=== PATIENT | female | born 1980 | race Caucasian/White ===

== ENCOUNTER 2018-03-09 01:12 | Outpatient (CLI) | payer OTHER, SELFPAY ==
--- NOTE | 2018-03-09 15:25 | DI.REPORT_ITS ---
SYMPTOM/DIAGNOSIS: Z34.80, DATING, OB ULTRASOUND: 03/09 OB ultrasound was performed utilizing first trimester protocol. biometry is consistent with gestational age of 14 weeks 4 days and an EDC of 09/03/18. The placenta is posterior with no evidence of placenta previa. There is a normal quantity of amniotic fluid. cardiac activity observed at a rate of 155 BPM. Many abnormalities cannot be diagnosed. A normal exam does not exclude a congenital anomaly. Radiology No. [id number] LMP: 12/01/17 Exam Date:03/09/18 [facility] wks days on EDC ([facility]) Confirmed: HISTORY: DATING U/S. ---- PREDICTED GESTATIONAL AGE NUMBER 14 - weeks with a range of 13- week to 15- weeks. 1 Determined by___1STUS_XX__LMP___HISTORY Info. pertaining to fetus # PLACENTA PRESENTATION Grade 0 Cephalic__X_ Anterior___Posterior__XX_ Breech____ Right Left Transverse(head right___ Fundal___Low-lying___Previa___ Transverse(head left___ Varying BIOMETRY AMNIOTIC FLUID BPD: 28 mm 15- weeks Normal HC: 109 mm 15 +2 weeks AC: 77 mm 14 +1 weeks FL: 13 mm 13 +5 weeks AMNIOTIC FLUID INDEX >26 WK CRL: mm weeks Cisterna Magna: mm CI: 83 RUQ: LUQ Cerebellum: cm EFW: grams Percentile RLQ: LLQ Total: cms Composite AGE= 14 +4 wks EDC by US___09/03/18 BIOPHYSICAL PROFILE ANATOMY IDENTIFIED SCORE 0/2 Heart: 4-Chamber___Rate:BPM__155 BPM___ LVOT: RVOT: Amniotic Fluid(>2cms)____ Stomach: Kidneys: Respirations (>30 secs) Bladder: Post. Fossa: Body Flex/Extension 3 vessel cord: Ventricles: cord insertion: Lips:____ Extremity Flex/Extension spinal morphology: Nose: Total Score= Palate: NS=not seen
== END 2018-03-09 01:13 ==
PROVIDERS: PCP Nurse Practitioner; Visit Provider Midwife
DX: Z34.81 Encounter for supervision of other normal pregnancy, first trimester (principal)
CPT/HCPCS: 76801

== ENCOUNTER 2018-04-27 00:21 | Outpatient (CLI) | payer OTHER, SELFPAY ==
--- NOTE | 2018-04-27 16:34 | DI.US_ITS ---
SYMPTOMS/DIAGNOSIS: , Z34.82 OB ULTRASOUND: Many abnormalities cannot be diagnosed. A normal exam does not exclude a congenital anomaly. Radiology No. [id number] LMP: Exam Date: 04/27/18 [facility] wks days on EDC ([facility]) 09/07/18 Confirmed: HISTORY: ---- PREDICTED GESTATIONAL AGE NUMBER 21+4 weeks with a range of 20+4 weeks to 22+4 weeks. 1 Determined by___1STUS___LMP___HISTORY PLACENTA PRESENTATION Grade Cephalic___ Anterior___Posterior_X__ Breech____ Right__X___ Left Transverse(head right___ Fundal___Low-lying___Previa___ Transverse(head left___ Varying__X____ BIOMETRY AMNIOTIC FLUID BPD: 49 mm 20+5 weeks Normal HC: 188 mm 21 weeks AC: 165 mm 21+4 weeks FL: 35 mm 21+1 weeks AMNIOTIC FLUID INDEX >26 WK CRL: mm weeks Cisterna Magna: 3.2 mm CI: 77 RUQ: LUQ Cerebellum: 2.1 cm EFW: 414 grams Percentile RLQ: LLQ Total: cms Composite AGE= 21+1 wks EDC by US: 09/06/18 BIOPHYSICAL PROFILE ANATOMY IDENTIFIED SCORE 0/2 Heart: 4-Chamber__X_Rate:BPM 153 LVOT:____X RVOT:___X Amniotic Fluid(>2cms)____ Stomach:___X____ Kidneys:___X____ Respirations (>30 secs) Bladder:____X____ Post. Fossa:___X Body Flex/Extension 3-vessel cord:__X Ventricles: X Cord insertion:___X__ Lips:__X__ Extremity Flex/Extension Spinal morphology:___X Nose:__X__ Total Score= Palate:___X____ NS=not seen COMMENTS: Comparison is made with February,. The fetus was in variable position during the exam. The placenta is posterior and right sided. The biometric measurements correspond to 20 weeks 1 day, consistent with the previous dating. No abnormalities are seen. The amniotic fluid index appears normal. IMPRESSION: survey is within normal limits.
== END 2018-04-27 00:41 ==
PROVIDERS: PCP Nurse Practitioner; Visit Provider Midwife
DX: Z34.82 Encounter for supervision of other normal pregnancy, second trimester (principal)
CPT/HCPCS: 76805

== ENCOUNTER 2018-06-03 14:50 | Outpatient (CLI) | payer OTHER, SELFPAY ==
[2018-06-03 16:21] LABS: Abs Immature Grans 0.01 k/cumm (0.0-0.09); Absolute Basophil Count 0.03 k/cumm (0.0-0.2); Absolute Eosinophil Count 0.08 k/cumm (0.0-0.7); Absolute Lymphocyte Count 1.49 k/cumm (1.2-3.4); Absolute Monocyte Count 0.27 k/cumm (0.11-0.7); Absolute Neutrophil Count 4.72 k/cumm (1.2-6.7); Basophils % 0.5; Eosinophils % 1.2; HCT 34.7 % (36.0-46.0); HGB 11.7 g/dL (12.0-15.5); Immature Grans % 0.2; Lymphocytes % 22.6; Mean Corp. HGB Concentration 33.7 g/dL (32.0-36.0); Mean Corpuscular Hemoglobin 33.3 pg (27.0-33.0); Mean Corpuscular Volume 98.9 fL (80-95); Mean Platelet Volume 9.5 fL (8.0-11.0); Monocytes % 4.1; Neutrophils % 71.4; Platelet Count 257 x1000/uL (130-400); RBC 3.51 m/cumm (4.00-5.20); RBC Distribution Width 13.2 % (11.7-14.6)
[2018-06-03 17:11] LABS: TSH (W/Ref FT4) 1.65 uIU/mL (0.358-3.74)
[2018-06-06 11:24] LABS: Hepatitis B Surface Ag Negative (NEGAT)
[2018-06-06 11:49] LABS: Hepatitis C Ab w Rflx HCV PCR Negative (NEGAT)
[2018-06-06 11:50] LABS: HIV-1/2 Ag & Ab Screen Negative (NEGAT)
[2018-06-06 12:03] LABS: Rubella IgG Ab (UVM) Positive
[2018-06-06 13:06] LABS: Syphilis Serology (RPR) Negative (Negative)
[2018-06-06 13:08] LABS: Varicella IgG Antibody Negative
== END 2018-06-03 15:10 ==
PROVIDERS: PCP Nurse Practitioner; Visit Provider Midwife
DX: Z34.82 Encounter for supervision of other normal pregnancy, second trimester (principal); Z01.84 Encounter for antibody response examination; Z01.83 Encounter for blood typing
CPT/HCPCS: 36415; 80055; 82306; 86803; 86850; 86900; 86901; 87340; 87389; 86592; 86762

== ENCOUNTER 2018-07-05 01:20 | Outpatient (CLI) | payer OTHER, SELFPAY ==
--- NOTE | 2018-07-05 07:05 | DI.US_ITS ---
SYMPTOM/DIAGNOSIS: PATIENT REGINALD TEE BABY AND PLACENTA OK, Z34.82 Many abnormalities cannot be diagnosed. A normal exam does not exclude a congenital anomaly. Radiology No. [id number] LMP: Exam Date: 07/05/2018 [facility] 14 wks 4 days on03.09.18 EDC ([facility]) 09/03/18 Confirmed: HISTORY: PT REGINALD TEE BABY AND PLACENTA OK. PREDICTED GESTATIONAL AGE NUMBER 31 1.2 weeks with a range of 30 1.2 week to 32 1/2 weeks. 1 Determined by_XX__1STUS___LMP___HISTORY Info. pertaining to fetus # PLACENTA PRESENTATION Grade I Cephalic_XX__ Anterior___Posterior_XX__ Breech____ Right Left Transverse(head right___ Fundal___Low-lying___Previa___ Transverse(head left___ Varying BIOMETRY AMNIOTIC FLUID BPD: 77mm 31 weeks Normal HC: 289 mm 31 +6 weeks AC: 261 mm 30 +2 weeks FL: 59 mm 30 +5 weeks AMNIOTIC FLUID INDEX >26 WK CRL: mm weeks Cisterna Magna: mm CI: 0.79 RUQ:__3.97____LUQ__3.82 Cerebellum: cm EFW: 1614 grams Percentile RLQ:_4.61 LLQ___1.90____ Total:__14.3__cms Composite AGE= 31 wks EDC by US___2/19/19 BIOPHYSICAL PROFILE ANATOMY IDENTIFIED SCORE 0/2 Heart: 4-Chamber_XX__Rate:BPM__150___ LVOT: RVOT: Amniotic Fluid(>2cms)____ Stomach:__X Kidneys: Respirations (>30 secs) Bladder:___X Post. Fossa: Body Flex/Extension 3 vessel cord:__X Ventricles: cord insertion:__X___ Lips:____ Extremity Flex/Extension spinal morphology: Nose: Total Score= Palate: NS=not seen Please see worksheet for details.
== END 2018-07-05 01:40 ==
PROVIDERS: PCP Nurse Practitioner; Visit Provider Midwife
DX: Z34.83 Encounter for supervision of other normal pregnancy, third trimester (principal); W19.XXXA Unspecified fall, initial encounter
CPT/HCPCS: 76805

== ENCOUNTER 2018-09-25 13:32 | Emergency (ER) | payer OTHER, SELFPAY ==
[2018-09-25 13:37] VITALS: BP 91/58; PULSE 65; RESP 18; TEMP 36.5; O2SAT 98
[2018-09-25] MEDS: Acetaminophen 500 MG TAB 1000 MG PO (14:39)
[2018-09-25 14:49] LABS: HCT 39.3 % (36.0-46.0); HGB 13.1 g/dL (12.0-15.5); Mean Corp. HGB Concentration 33.3 g/dL (32.0-36.0); Mean Corpuscular Hemoglobin 31.8 pg (27.0-33.0); Mean Corpuscular Volume 95.4 fL (80-95); Mean Platelet Volume 8.6 fL (8.0-11.0); Platelet Count 325 x1000/uL (130-400); RBC 4.12 m/cumm (4.00-5.20); RBC Distribution Width 13.1 % (11.7-14.6); White Blood Cell Count 8.79 k/cumm (4.4-10.8)
--- NOTE | 2018-09-25 15:01 | DI.US_ITS ---
SYMPTOM/DIAGNOSIS: ? RT BREAST ABSCESS, MASTITIS, RT BREAST REDNESS AND SWELLING LIMITED RIGHT BREAST ULTRASOUND: There is a complex hypoechoic region seen in the region of the nipple with increased vascularity, predominantly peripherally. This corresponds to the patient's area of pain. Given the patient's history of nursing, skin redness and current antibiotic therapy, a breast abscess should be considered. A mass appears less likely. IMPRESSION: 2.6 by 3.3 by 1.7 cm. hypoechoic area in the right yue-areolar region most suspicious for a breast abscess. Follow up as clinically appropriate.
[2018-09-25 15:05] LABS: ALT 20 U/L (12-78); AST 20 U/L (15-37); Albumin 2.9 g/dL (3.4-5.0); Alkaline Phosphatase 85 U/L (46-116); Anion Gap 6.5 mmol/L (3-11); BUN 16 mg/dL (7-18); Bilirubin, Total 0.2 mg/dL (0.2-1.0); CO2 29.5 mmol/L (21.0-32.0); CREATININE 0.64 mg/dL (0.55-1.02); Calcium 8.5 mg/dL (8.5-10.1); Chloride 105 mmol/L (98-107); Glucose 93 mg/dL (70-100); Potassium 3.7 mmol/L (3.5-5.1); Sodium 141 mmol/L (136-145); Total Protein 7.1 g/dL (6.4-8.2)
--- NOTE | 2018-09-25 15:31 | W.SURGCON ---
Date of service: 09/25/18 Time of Service: 15:31 Assessment and Plan (1) Abscess of breast associated with puerperium: Current visit: Yes Status: Acute 37 y/o female with cellulitis/abscess of right breast. She is 3 weeks and . We discussed that the abscess needs to be drained in order for the antibiotics to be effective and for the infection to resolve. We discussed incision and drainage with possible drain placement at the bedside in the ED under local anesthesia vs. in the OR with anesthesia sedation. We also discussed the option of needle aspiration with close outpatient follow-up as the patient is reluctant to undergo an incision and drainage. She is concerned about continuing to breastfeed/ pump. We discussed that needle aspiration can be done in the ED with close outpatient follow-up with surgery in 1-2 days. This is an option as she is afebrile with a normal WBC count and does not appear septic. The abscess may still require a surgical incision and drainage +/- biopsy if it does not resolve. Risks, benefits, and alternatives including but not limited to bleeding, worsening or recurrent infection, and need for additional procedures such as incision and drainage discussed. All questions answered. Patient wishes to proceed with needle aspiration of the right breast abscess. Informed consent obtained. See procedure note for details. Patient tolerated well. Patient instructed to: Finish oral antibiotic as prescribed (10 day course of Doxycycline). Follow-up with Dr. Grewal or Alfredito in 1-2 days. May apply warm compresses. Await wound culture results. Also discussed with Lawrence Walker NP in the ED. History of Present Illness Chief Complaint: Right breast mastitis Narrative: 37 y/o female seen in the ED at [facility]. Patient is 3 weeks post- and . She states that 2 weeks ago she had some fevers and chills which resolved. She felt a lump develop in the right breast which seemed to improve but then worsened. It has become progressively red and tender. She has been followed by the specification consultant. She was started on Doxycycline 2 days ago which improved some of the periareolar redness, but the tender, swollen lump below the right nipple is persistent. Bedside ultrasound was done in the ED and reportedly demonstrated a 4-5cm fluid collection. Ultrasound obtained in radiology. Discussed with ophthalmology surgical technician who noted a collection ~ 3.5x2.5 cm in the area of tenderness/redness. WBC WNL at ~ 9k. She is afebrile here in the ED. She denies any other medical issues or previous surgeries. Consults Consult date: 09/25/18 Requesting physician: Solis Walker Review of Systems Review of Systems All systems reviewed & are unremarkable except as noted in HPI and below Constitutional Reports chills and Reports fever(s) Cardiovascular Denies chest pain, Denies rapid heart rate and Denies dyspnea Respiratory Denies cough and Denies dyspnea Integumentary/Breasts Reports breast pain and Reports erythema PFSH Medical History Depression Migraines Family History Mother Fibromyalgia Migraines Low blood pressure Father Neoplasm Brother Casey War syndrome Maternal Uncle Myocardial infarction Maternal Grandmother Diabetes Myocardial infarction Neoplasm Maternal Grandfather Myocardial infarction Social History Smoking and Tabacco status: Former Tobacco Use Exam Const General: cooperative and no acute distress Nutritional Appearance: average body habitus Orientation: alert and oriented x3 HENMT Head: normocephalic and atraumatic Eyes Sclera: sclerae normal Chest Breast inspection: abnormal inspection of the breast (Inferior to right nipple - indurated, erythematous, swollen area ~ 5 cm) right edema, erythema and other (skin intact w/o drainage); no nipple discharge Resp Effort & Inspection: normal respiratory effort and able to speak in complete sentences Cardio Jugular venous pressure: no JVD Rate: regular rate Rhythm: regular rhythm Skin General skin exam: no jaundice Neuro General: alert and oriented x3 Cognition: normal cognition Speech: speech normal Results Last Vital Signs Temp 36.5 C 09/25/18 13:37 Pulse 65 09/25/18 13:37 Resp 18 09/25/18 13:37 BP 91/58 L 09/25/18 13:37 Pulse Ox 98 09/25/18 13:37 Labs : 09/25/18 14:50 09/25/18 14:45 Laboratory Results - last 24 hr 09/25/18 09/25/18 14:45 14:50 WBC 8.79 RBC 4.12 Hgb 13.1 Hct 39.3 MCV 95.4 H MCH 31.8 MCHC 33.3 RDW 13.1 Plt Count 325 MPV 8.6 Sodium 141 Potassium 3.7 Chloride 105 Carbon Dioxide 29.5 Anion Gap 6.5 BUN 16 Creatinine 0.64 Estimated GFR/1.73 m2 >= 60.00 Glucose 93 Calcium 8.5 Total Bilirubin 0.2 AST 20 ALT 20 Alkaline Phosphatase 85 Total Protein 7.1 Albumin 2.9 L Imaging Imaging Studies: Patient Name: [facility] #: [id number]: ER Ordering Provider: : REG ER Primary Care Provider: Olinda Henderson NPDate of Exam: 09/25/18Sex: F : 1980Age: 37 Exam(s) EXAM: US Right Breast Limited EXAM DATE/TIME: 09/25/2018 3:55 PM CLINICAL HISTORY: 37 years old, female; Pain and signs and symptoms; Mass, lump, or swelling; Right; Breast pain; Patient HX: Patient has been nursing, has experienced redness and pain in the RT breast x 48 hours, has been on antibiotics x48 hrs. ; Additional info: There is a 2.6x3.3x1.7cm heterogeneous, fairly well circumscribed region in the RT breast beginning approx. 1-2 cm lateral to the nipple and extending. Just inferior to the nipple in the medial direction. There is somewhat increased color flow to this region and corresponds directly with the patient's area of pain. TECHNIQUE: Limited ultrasound of Right breast with image documentation, including axilla when performed. COMPARISON: No relevant prior studies available. FINDINGS: 2.6 x 3.3 x 1.7 cm hypoechoic area with increased vascularity suggesting an abscess beneath the nipple. An inhomogeneous mass seems less likely. IMPRESSION: Findings suggesting breast abscess. Dictated and Authenticated by: Luca Gardiner MD. Ordering:SAGAR Ely MD Procedures Other Procedure Description/Findings: Procedure: Aspiration right breast abscess Surgeon: Dr. Criss Lancaster Anesthesia: Local w/ 1cc 1% lidocaine EBL: Minimal Findings - 4 cc turbid, cream-colored pus aspirated with decreased swelling noted Procedure: Skin of the right breast was prepped with chloraprep. Local anesthesia with 1 cc 1% lidocaine was injected at the fluctuant site. Needle aspiration with a 22 gauge needle yielded 4 cc turbid, cream-colored purulent material. Aspirate sent for wound culture. Second aspiration did not yield any additional purulent fluid. Bandaid dressing applied. Patient tolerated well.
--- NOTE | 2018-09-25 15:40 | SCONE_ITS ---
Date of service: 09/25/18 Time of Service: 15:31 Assessment and Plan (1) Abscess of breast associated with puerperium: Current visit: Yes Status: Acute 37 y/o female with cellulitis/abscess of right breast. She is 3 weeks and . We discussed that the abscess needs to be drained in order for the antibiotics to be effective and for the infection to resolve. We discussed incision and drainage with possible drain placement at the bedside in the ED under local anesthesia vs. in the OR with anesthesia sedation. We also discussed the option of needle aspiration with close outpatient follow-up as the patient is reluctant to undergo an incision and drainage. She is concerned about continuing to breastfeed/ pump. We discussed that needle aspiration can be done in the ED with close outpatient follow-up with surgery in 1-2 days. This is an option as she is afebrile with a normal WBC count and does not appear septic. The abscess may still require a surgical incision and draina ge +/- biopsy if it does not resolve. Risks, benefits, and alternatives including but not limited to bleeding, worsening or recurrent infection, and need for additional procedures such as incision and drainage discussed. All questions answered. Patient wishes to proceed with needle aspiration of the right breast abscess. Informed consent obtained. See procedure note for details. Patient tolerated well. Patient instructed to: Finish oral antibiotic as prescribed (10 day course of Doxycycline). Follow-up with Dr. Grewal or Alfredito in 1-2 days. May apply warm compresses. Await wound culture results. Also discussed with Lawrence Walker NP in the ED. History of Present Illness Chief Complaint: Right breast mastitis Narrative: 37 y/o female seen in the ED at [facility]. Patient is 3 weeks post- and . She states that 2 weeks ago she had some fevers and chills which resolved. She felt a lump develop in the right breast which seemed to improve but then worsened. It has become progressively red and tender. She has been followed by the clinical science consultant. She was started on Doxycycline 2 days ago which improved some of the periareolar redness, but the tender, swollen lump below the right nipple is persistent. Bedside ultrasound was done in the ED and reportedly demonstrated a 4-5cm fluid collection. Ultrasound obtained in radiology. Discussed with sterilization tech who noted a collection ~ 3.5x2.5 cm in the area of tenderness/redness. WBC WNL at ~ 9k. She is afebrile here in the ED. She denies any other medical issues or previous surgeries. Consults Consult date: 09/25/18 Requesting physician: Solis Walker Review of Systems Review of Systems All systems reviewed & are unremarkable except as noted in HPI and below Constitutional Reports chills and Reports fever(s) Cardiovascular Denies chest pain, Denies rapid heart rate and Denies dyspnea Respiratory Denies cough and Denies dyspnea Integumentary/Breasts Reports breast pain and Reports erythema PFSH Medical History Depression Migraines Family History Mother Fibromyalgia Migraines Low blood pressure Father Neoplasm Brother [place] War syndrome Maternal Uncle Myocardial infarction Maternal Grandmother Diabetes Myocardial infarction Neoplasm Maternal Grandfather Myocardial infarction Social History Smoking and Tabacco status: Former Tobacco Use Exam Const General: cooperative and no acute distress Nutritional Appearance: average body habitus Orientation: alert and oriented x3 HENMT Head: normocephalic and atraumatic Eyes Sclera: sclerae normal Chest Breast inspection: abnormal inspection of the breast (Inferior to right nipple - indurated, erythematous, swollen area ~ 5 cm) right edema, erythema and other (skin intact w/o drainage); no nipple discharge Resp Effort & Inspection: normal respiratory effort and able to speak in complete sentences Cardio Jugular venous pressure: no JVD Rate: regular rate Rhythm: regular rhythm Skin General skin exam: no jaundice Neuro General: alert and oriented x3 Cognition: normal cognition Speech: speech normal Results Last Vital Signs Temp 36.5 C 09/25/18 13:37 Pulse 65 09/25/18 13:37 Resp 18 09/25/18 13:37 BP 91/58 L 09/25/18 13:37 Pulse Ox 98 09/25/18 13:37 Labs : 09/25/18 14:50 09/25/18 14:45 Laboratory Results - last 24 hr 09/25/18 09/25/18 14:45 14:50 WBC 8.79 RBC 4.12 Hgb 13.1 Hct 39.3 MCV 95.4 H MCH 31.8 MCHC 33.3 RDW 13.1 Plt Count 325 MPV 8.6 Sodium 141 Potassium 3.7 Chloride 105 Carbon Dioxide 29.5 Anion Gap 6.5 BUN 16 Creatinine 0.64 Estimated GFR/1.73 m2 >= 60.00 Glucose 93 Calcium 8.5 Total Bilirubin 0.2 AST 20 ALT 20 Alkaline Phosphatase 85 Total Protein 7.1 Albumin 2.9 L Imaging Imaging Studies: Patient Name: [facility] #: [id number]: ER Ordering Provider: : REG ER Primary Care Provider: Olinda Henderson NPDate of Exam: 09/25/18Sex: F : 1980Age: 37 Exam(s) EXAM: US Right Breast Limited EXAM DATE/TIME: 09/25/2018 3:55 PM CLINICAL HISTORY: 37 years old, female; Pain and signs and symptoms; Mass, lump, or swelling; Right; Breast pain; Patient HX: Patient has been nursing, has experienced redness and pain in the RT breast x 48 hours, has been on antibiotics x48 hrs. ; Additional info: There is a 2.6x3.3x1.7cm heterogeneous, fairly well circumscribed region in the RT breast beginning approx. 1-2 cm lateral to the nipple and extending. Just inferior to the nipple in the medial direction. There is somewhat increased color flow to this region and corresponds directly with the patient's area of pain. TECHNIQUE: Limited ultrasound of Right breast with image documentation, including axilla when performed. COMPARISON: No relevant prior studies available. FINDINGS: 2.6 x 3.3 x 1.7 cm hypoechoic area with increased vascularity suggesting an abscess beneath the nipple. An inhomogeneous mass seems less likely. IMPRESSION: Findings suggesting breast abscess. Dictated and Authenticated by: Luca Gardiner MD. Ordering:SAGAR Ely MD Procedures Other Procedure Description/Findings: Procedure: Aspiration right breast abscess Surgeon: Dr. Criss Lancaster Anesthesia: Local w/ 1cc 1% lidocaine EBL: Minimal Findings - 4 cc turbid, cream-colored pus aspirated with decreased swelling no prema Procedure: Skin of the right breast was prepped with chloraprep. Local anesthesia with 1 cc 1% lidocaine was injected at the fluctuant site. Needle aspiration with a 22 gauge needle yielded 4 cc turbid, cream-colored purulent material. Aspirate sent for wound culture. Second aspiration did not yield any additional purulent fluid. Bandaid dressing applied. Patient tolerated well.
--- NOTE | 2018-09-25 16:40 | NUR.NOTE ---
drained abscess, culture sent to lab Nursing Note:
--- NOTE | 2018-09-25 16:54 | DI.VRAD_ITS ---
EXAM: US Right Breast Limited EXAM DATE/TIME: 09/25/2018 3:55 PM CLINICAL HISTORY: 37 years old, female; Pain and signs and symptoms; Mass, lump, or swelling; Right; Breast pain; Patient HX: Patient has been nursing, has experienced redness and pain in the RT breast x 48 hours, has been on antibiotics x48 hrs. ; Additional info: There is a 2.6x3.3x1.7cm heterogeneous, fairly well circumscribed region in the RT breast beginning approx. 1-2 cm lateral to the nipple and extending. Just inferior to the nipple in the medial direction. There is somewhat increased color flow to this region and corresponds directly with the patient's area of pain. TECHNIQUE: Limited ultrasound of Right breast with image documentation, including axilla when performed. COMPARISON: No relevant prior studies available. FINDINGS: 2.6 x 3.3 x 1.7 cm hypoechoic area with increased vascularity suggesting an abscess beneath the nipple. An inhomogeneous mass seems less likely. IMPRESSION: Findings suggesting breast abscess. Dictated and Authenticated by: Luca Gardiner MD. Ordering:SAGAR Ely MD
--- NOTE | 2018-09-25 16:54 | ED.GENADUL_ITS ---
Discharge Plan Disposition Patient Disposition: HOME Discharge Details Chief Complaint: Cellulitis Primary Care Provider: Olinda Henderson ED Provider: Solis Walker Home Meds and New Rx's Prescriptions: Continued dicloxacillin 500 mg capsule 500 mg PO QID Qty: 40 RF: 1 ibuprofen 200 MG tablet 200 mg PO PRN PRNRF: 0 Discharge Data Discharge Date/Time-TO BE ENTERED AT DEPARTURE: 09/25/18 17:01 Medical Decision Making Patient presenting to the emergency department for chief complaint of mastitis. Patient has had redness and erythema to the right breast for the past 2 weeks. Patient had delivery of child on September 04. 2 days ago patient was placed upon antibiotics by automotive service consultant for concern of mastitis with possible question of abscess. Patient has had improvement of erythema since then but increasing size of indurated area. Bedside ultrasound was performed and shows significant area of concern of abscess. Consulted with Dr. Lancaster general surgeon who requested labs and ultrasound imaging of the breast Imaging of the breast does show findings suggestive of abscess. Patient consulted for needle drainage but did not want I&D performed at this time. This was performed by general surgeon please see note for details. Patient to continue on current antibiotic and follow-up with general surgeons office in 24- 48 hours for reassess. Return precautions were discussed after discussion of diagnosis and plan of care patient has no further needs, questions, or concerns and states clear understanding to return to the emergency department for any worsening symptoms. HPI General Mode of arrival: ambulatory . Date/Time Provider Initiated Documentation: 09/25/18 13:49 . Limitations to Documentation: no limitations . Information obtained by: patient, RN notes reviewed and old records reviewed . History of Present Illness 37 year old F presents to the emergency department with the chief complaint of breast infection, described as moderate, with intensity rated at 6. Quality is described as aching and sharp, and is localized to the right (Breast). Patient started experiencing this week(s) (2) and it has been constant. No relieving factors improve symptom(s), No exacerbating factors reported . Patient notes no other symptoms.. Related Data Home Medications Medication Instructions Recorded Confirmed ibuprofen 200 mg PO PRN PRN 11/10/16 09/30/18 dicloxacillin 500 mg capsule 500 mg PO QID #40 cap 09/23/18 09/30/18 Previous Rx's Medication Instructions Recorded dicloxacillin 500 mg capsule 500 mg PO QID #40 cap 09/23/18 Allergies Allergy/AdvReac Type Severity Reaction Status Date / Time red Meat Allergy Intermediate Hives Uncoded 09/30/18 09:57 General Stated Complaint: Cellulitis VIVIAN: 3 Review of Systems Constitutional Denies body ache(s), Denies chills and Denies fever(s) Cardiovascular Denies chest pain and Denies dyspnea Respiratory Denies dyspnea Gastrointestinal Denies abdominal pain, Denies nausea and Denies vomiting Integumentary/Breasts Reports as per HPI, Reports breast swelling, Reports breast pain and Reports erythema PFSH Medical History Depression Migraines Family History Mother Fibromyalgia Migraines Low blood pressure Father Neoplasm Brother [place] War syndrome Maternal Uncle Myocardial infarction Maternal Grandmother Diabetes Myocardial infarction Neoplasm Maternal Grandfather Myocardial infarction Social History Smoking/Tobacco Use Status: Former Tobacco Use Alcohol Intake: current Alcohol Intake frequency: a few times a month Drug use: Never Substance use type: does not use Household members: family Do you feel safe in your relationship?: Yes Exam Const General: cooperative and healthy appearing Orientation: alert, awake and oriented x3 HENMT Mouth: moist mucous membranes Chest Breast palpation: normal palpation of the axillae, no axillary lymphadenopathy and abnormal palpation of the breast (Right breast induration just inferior to the nipple with area of induration) Resp Effort & Inspection: normal respiratory effort, able to speak in complete sentences and no respiratory distress Cardio Rate: regular rate Rhythm: regular rhythm Heart Sounds: S1 normal and S2 normal Skin General skin exam: no rashes or lesions noted Course Vital Signs Temperature 36.5 C 09/25/18 13:37 Pulse 65 09/25/18 13:37 Respiratory Rate 18 09/25/18 13:37 Blood Pressure 91/58 L 09/25/18 13:37 Pulse Oximetry 98 09/25/18 13:37 Temperature 36.5 C 09/25/18 13:37 Temperature Source Oral 09/25/18 13:37 Pulse 65 09/25/18 13:37 Respiratory Rate 18 09/25/18 13:37 Respiratory Effort Non-Labored 09/25/18 13:41 Blood Pressure 91/58 L 09/25/18 13:37 Blood Pressure Position Sitting 09/25/18 13:37 Pulse Oximetry 98 09/25/18 13:37 Oxygen Delivery Method Room Air 09/25/18 13:37 Oxygen Flow Rate 0 09/25/18 13:37 Pain Level 6 09/25/18 13:37 Lab/Test Results Lab/Test Results: 09/25/18 16:35 Breast - Right Wound Culture - Pending 09/25/18 16:35 Breast - Right Gram Stain - Pending 09/25/18 16:35 Breast - Right Body Fluid Culture - Pending 09/25/18 16:35 Breast - Right Gram Stain - Pending Laboratory Tests Range/Units 09/25/18 09/25/18 14:45 14:50 WBC (4.4-10.8) k/cumm 8.79 RBC (4.00-5.20) m/cumm 4.12 Hgb (12.0-15.5) g/dL 13.1 Hct (36.0-46.0) % 39.3 MCV (80-95) fL 95.4 H MCH (27.0-33.0) pg 31.8 MCHC (32.0-36.0) g/dL 33.3 RDW (11.7-14.6) % 13.1 Plt Count (130-400) x1000/uL 325 MPV (8.0-11.0) fL 8.6 Sodium (136-145) mmol/L 141 Potassium (3.5-5.1) mmol/L 3.7 Chloride (98-107) mmol/L 105 Carbon Dioxide (21.0-32.0) mmol/L 29.5 Anion Gap (3-11) mmol/L 6.5 BUN (7-18) mg/dL 16 Creatinine (0.55-1.02) mg/dL 0.64 Estimated GFR/1.73 m2 (mL/min/1.73m2) >= 60.00 Glucose (70-100) mg/dL 93 Calcium (8.5-10.1) mg/dL 8.5 Total Bilirubin (0.2-1.0) mg/dL 0.2 AST (15-37) U/L 20 ALT (12-78) U/L 20 Alkaline Phosphatase (46-116) U/L 85 Total Protein (6.4-8.2) g/dL 7.1 Albumin (3.4-5.0) g/dL 2.9 L
--- NOTE | 2018-09-26 08:05 | PDOC.ERCMPRO ---
Care Management Progress Note 09/26-Lawrence [facility] requested assistance with a surgical f/u on Tuesday 09/26 or 09/27 for breast abscess. Referral faxed to [facility] this am.
== END 2018-09-25 17:01 | disposition home or self-care (01) ==
PROVIDERS: Emergency Provider Nurse Practitioner Family; PCP Nurse Practitioner
DX: O91.13 Abscess of breast associated with lactation (principal)
CPT/HCPCS: 10160; 36415; 76642; 80053; 85027; 87077; 99252; 99284; 87070; 87186; 87205

== ENCOUNTER 2019-11-23 08:38 | Outpatient (CLI) | payer OTHER, SELFPAY ==
[2019-11-23 12:27] LABS: HCT 39.5 % (36.0-46.0); HGB 13.2 g/dL (12.0-15.5); Mean Corp. HGB Concentration 33.4 g/dL (32.0-36.0); Mean Corpuscular Hemoglobin 31.7 pg (27.0-33.0); Mean Corpuscular Volume 94.7 fL (80-95); Mean Platelet Volume 9.2 fL (8.0-11.0); Platelet Count 284 x1000/uL (130-400); RBC 4.17 m/cumm (4.00-5.20); RBC Distribution Width 13.1 % (11.7-14.6); White Blood Cell Count 5.72 k/cumm (4.4-10.8)
[2019-11-23 13:31] LABS: ESR 10 mm/hr (0-20)
[2019-11-23 14:03] LABS: Vitamin D 25 Total 23.7 ng/ml (30-100)
[2019-11-23 14:38] LABS: ALT 23 U/L (14-59); AST 22 U/L (15-37); Albumin 4.1 g/dL (3.4-5.0); Alkaline Phosphatase 44 U/L (46-116); Anion Gap 8.1 mmol/L (3-11); BUN 12 mg/dL (7-18); Bilirubin, Total 0.7 mg/dL (0.2-1.0); CO2 28.9 mmol/L (21.0-32.0); CREATININE 0.89 mg/dL (0.55-1.02); Chloride 102 mmol/L (98-107); Ferritin 19 ng/mL (8-252); Glucose 78 mg/dL (74-106); Potassium 4.9 mmol/L (3.5-5.1); Sodium 139 mmol/L (136-145); Total Protein 7.1 g/dL (6.4-8.2); Vitamin B12 192 pg/mL (193-986)
[2019-11-23 15:12] LABS: C-Reactive Protein 0.09 mg/dL (0.0-0.3); Calcium 9.1 mg/dL (8.5-10.1)
[2019-11-23 21:33] LABS: Rheumatoid Factor <8.6 IU/mL (<12.0)
[2019-11-24 15:17] LABS: Lyme Ab w Rflx to Lyme Confirm Negative (Negative)
[2019-11-24 15:27] LABS: ANA Interpretation Positive (Negative); ANA Titer Pattern 1:80 Homogeneous
== END 2019-11-23 08:58 ==
PROVIDERS: PCP Nurse Practitioner; Visit Provider Nurse Practitioner
DX: E55.9 Vitamin D deficiency, unspecified (principal); M25.50 Pain in unspecified joint; M25.60 Stiffness of unspecified joint, not elsewhere classified; R53.83 Other fatigue; I10 Essential (primary) hypertension
CPT/HCPCS: 36415; 80053; 82306; 85027; 85652; 82607; 82728; 84443; 86038; 86140; 86431; 86618

== ENCOUNTER 2019-12-20 03:01 | Outpatient (CLI) | payer OTHER, SELFPAY ==
[2019-12-21 10:47] LABS: RNP Ab, IgG 1.7 Units (<20.0); SS-B (La) Ab, IgG 1.5 Units (<20.0); Sm (Smith) Ab, IgG 1.3 Units (<20.0)
== END 2019-12-20 03:21 ==
PROVIDERS: PCP Nurse Practitioner; Visit Provider Nurse Practitioner
DX: M25.60 Stiffness of unspecified joint, not elsewhere classified (principal); R53.83 Other fatigue; R76.8 Other specified abnormal immunological findings in serum
CPT/HCPCS: 36415; 86235

== ENCOUNTER 2020-02-08 12:21 | Outpatient (CLI) | payer OTHER, SELFPAY ==
--- NOTE | 2020-02-08 15:30 | RT.EKG_ITS ---
APPROVED REPORT Exam: Resting ECG Patient Location: O HR:61 bpm ECG Measurements Heart Rate 61 AXIS WY 167 P -14 QRSd 89 QRS 85 QT 422 T 36 QTc 424 <Conclusion> Sinus rhythm...normal P axis, V-rate 60- 99
== END 2020-02-08 12:41 ==
PROVIDERS: PCP Nurse Practitioner; Visit Provider Nurse Practitioner Family
DX: R06.02 Shortness of breath (principal)
CPT/HCPCS: 93005; 93010

== ENCOUNTER 2020-04-25 01:27 | Outpatient (CLI) | payer OTHER, SELFPAY ==
[2020-04-25 15:01] LABS: Absolute Basophil Count 0.06 10^3/uL (0.0-0.2); Absolute Lymphocyte Count 2.24 10^3/uL (1.2-3.4); Absolute Monocyte Count 0.33 10^3/uL (0.1-0.8); Absolute Neutrophil Count 2.56 10^3/uL (1.2-6.7); Basophils % 1.1; Eosinophils % 5.5; HCT 36.5 % (36.0-46.0); HGB 12.2 g/dL (11.2-15.7); Lymphocytes % 40.8; MCH 31.4 pg (27.0-33.0); MCHC 33.4 % (32.0-36.0); MCV 94.1 fL (80-95); MPV 9.1 fL (8.0-11.0); Neutrophils % 46.6; Nucleated RBC 0 %; Platelet Count 293 10^3/uL (130-400); RBC 3.88 10^6/uL (3.93-5.22); RDW 13.9 % (11.7-14.6); RDW-SD 47.2 fL; WBC 5.49 10^3/uL (4.4-10.8)
[2020-04-25 15:48] LABS: Vitamin B12 368 pg/mL (193-986)
[2020-04-29 14:28] LABS: IgA 141 mg/dL (85-499); Interpretation (See Note); Tissue Transglutaminase IgA <1.2 U/mL (<4.0)
[2020-04-30 12:53] LABS: dsDNA Ab, IgG <12.3 IU/mL (<30.0)
== END 2020-04-25 01:47 ==
PROVIDERS: PCP Nurse Practitioner; Visit Provider Nurse Practitioner Family
DX: R53.81 Other malaise (principal); R53.83 Other fatigue; R76.8 Other specified abnormal immunological findings in serum
CPT/HCPCS: 36415; 82784; 83516; 82607; 85025; 86225

== ENCOUNTER 2020-09-05 02:54 | Outpatient (CLI) | payer OTHER, SELFPAY ==
[2020-09-06 10:20] LABS: Lyme Ab w Rflx to Lyme Confirm Negative (Negative)
[2020-09-09 00:49] LABS: Anaplasma phagocytophilum Negative (Negative); B. miyamotoi PCR Negative (Negative); Babesia divergens/MO-1 Negative (Negative); Babesia duncani Negative (Negative); Babesia microti Negative (Negative); Ehrlichia chaffeensis Negative (Negative); Ehrlichia ewingii/canis Negative (Negative); Ehrlichia muris eauclairensis Negative (Negative)
== END 2020-09-05 02:55 | disposition home or self-care (01) ==
LOC: LBO 02:54
PROVIDERS: PCP Nurse Practitioner; Visit Provider Nurse Practitioner
DX: R89.9 Unspecified abnormal finding in specimens from other organs, systems and tissues (principal); R21 Rash and other nonspecific skin eruption; R53.83 Other fatigue
CPT/HCPCS: 36415; 87798; 86618

== ENCOUNTER 2020-09-27 03:02 | Outpatient (CLI) | payer OTHER, SELFPAY ==
[2020-09-27 09:44] LABS: Iron 71 ug/dL (50-170); Total Iron Binding Capacity 369 ug/dL (250-450)
[2020-09-27 10:01] LABS: Anion Gap 8.1 mmol/L (3-11); BUN 11 mg/dL (7-18); CO2 28.9 mmol/L (21.0-32.0); CREATININE 0.7 mg/dL (0.55-1.02); Chloride 102 mmol/L (98-107); FREE T4 0.72 ng/dL (0.76-1.46); Glucose 95 mg/dL (74-106); Potassium 3.7 mmol/L (3.5-5.1); Sodium 139 mmol/L (136-145); TSH 2.03 uIU/mL (0.36-3.74)
[2020-09-27 10:39] LABS: Vitamin B12 553 pg/mL (193-986)
[2020-09-27 17:38] LABS: T3, Total 115 ng/dL (97-169)
[2020-09-27 18:18] LABS: FSH 8.6 mIU/mL (See Note)
[2020-09-27 19:27] LABS: Estradiol 19 pg/mL (See Note); Progesterone 0.9 ng/mL (See Table)
[2020-09-30 05:15] LABS: Vitamin D 25 Total 28.9 ng/ml (30-100)
[2020-09-30 12:45] LABS: Adrenocorticotropic Hormone, P 26 pg/mL
[2020-10-03 11:55] LABS: Dehydroepiandrosterone (DHEA) 5.4 ng/mL (<10)
== END 2020-09-27 03:03 | disposition home or self-care (01) ==
LOC: LBO 03:02
PROVIDERS: PCP Nurse Practitioner; Visit Provider Internal Medicine Endocrinology, Diabetes & Metabolism
DX: E27.40 Unspecified adrenocortical insufficiency (principal); R53.82 Chronic fatigue, unspecified; E53.8 Deficiency of other specified B group vitamins; E55.9 Vitamin D deficiency, unspecified
CPT/HCPCS: 36415; 80048; 82306; 82533; 82024; 82607; 82626; 82670; 83001; 83540; 83550; 84144; 84439; 84443; 84480

== ENCOUNTER 2020-10-15 03:48 | Outpatient (CLI) | payer OTHER, SELFPAY ==
[2020-10-15 16:48] LABS: Progesterone 16.2 ng/mL (See Table)
[2020-10-15 17:55] LABS: FSH 6.6 mIU/mL (See Note); LH 4.1 mIU/mL (See Note); Prolactin 2.3 ng/mL (See Table)
[2020-10-15 17:57] LABS: Sex Hormone Binding Globulin 115.5 nmol/L (See Note)
[2020-10-16 09:19] LABS: DHEA Sulfate 166 ug/dL (75-410)
[2020-10-16 15:39] LABS: Adrenocorticotropic Hormone, P 28 pg/mL
[2020-10-16 15:41] LABS: Estriol, Unconjugated <0.07 ng/mL (<0.08)
[2020-10-18 14:15] LABS: Estradiol, Mass Spectrometry 77 pg/mL; Estrone 67 pg/mL
[2020-10-22 11:24] LABS: Testosterone, Free 0.14 ng/dL (0.06-1.00); Testosterone, Total 17 ng/dL (8-60)
== END 2020-10-15 03:49 | disposition home or self-care (01) ==
LOC: LBO 03:48
PROVIDERS: PCP Nurse Practitioner; Visit Provider Emergency Medicine
DX: R53.83 Other fatigue (principal); I73.00 Raynaud's syndrome without gangrene; R68.82 Decreased libido; Z91.018 Allergy to other foods
CPT/HCPCS: 36415; 82533; 82627; 84402; 84403; 82024; 82626; 82670; 82677; 82679; 83001; 83002; 84144; 84146; 84270

== ENCOUNTER 2020-12-05 03:13 | Outpatient (CLI) | payer OTHER, SELFPAY ==
[2020-12-06 10:21] LABS: C3 Complement 81 mg/dL (81-157); C4 Complement 19 mg/dL (13-39)
[2020-12-07 14:18] LABS: Phospholipid Ab, IgG <9.4 GPL; Phospholipid Ab, IgM <9.4 MPL
[2020-12-09 16:21] LABS: Dilute Russell Viper Venom 31.4 secs (31.9-47.0); LA Cascade Summary (See Note); Silica Clotting Time 38.6 secs (30.2-48.4)
== END 2020-12-05 03:14 | disposition home or self-care (01) ==
PROVIDERS: PCP Nurse Practitioner; Visit Provider Nurse Practitioner Family
DX: R76.8 Other specified abnormal immunological findings in serum (principal)
CPT/HCPCS: 36415; 86147; 87116; 86160

== ENCOUNTER 2020-12-31 02:30 | Outpatient (CLI) | payer OTHER, SELFPAY ==
[2020-12-31 12:43] LABS: Abs Immature Grans 0.01 10^3/uL (0.0-0.06); Absolute Basophil Count 0.07 10^3/uL (0.0-0.2); Absolute Eosinophil Count 0.72 10^3/uL (0.0-0.7); Absolute Lymphocyte Count 1.64 10^3/uL (1.2-3.4); Absolute Monocyte Count 0.31 10^3/uL (0.1-0.8); Absolute Neutrophil Count 2.56 10^3/uL (1.2-6.7); Basophils % 1.3; Eosinophils % 13.6; HCT 38.8 % (36.0-46.0); HGB 12.8 g/dL (11.2-15.7); Immature Grans % 0.2; Lymphocytes % 30.9; MCH 30.9 pg (27.0-33.0); MCV 93.7 fL (80-95); MPV 8.8 fL (8.0-11.0); Monocytes % 5.8; Neutrophils % 48.2; Nucleated RBC 0 %; Platelet Count 328 10^3/uL (130-400); RBC 4.14 10^6/uL (3.93-5.22); RDW 12.6 % (11.7-14.6); RDW-SD 43.4 fL; WBC 5.31 10^3/uL (4.4-10.8)
[2020-12-31 13:35] LABS: Iron 23 ug/dL (50-170); Total Iron Binding Capacity 431 ug/dL (250-450); Transferrin Sat 5 % (15-50)
[2020-12-31 13:49] LABS: ALT 25 U/L (14-59); AST 22 U/L (15-37); Albumin 4.3 g/dL (3.4-5.0); Alkaline Phosphatase 58 U/L (46-116); Anion Gap 9.3 mmol/L (3-11); BUN 19 mg/dL (7-18); Bilirubin, Total 0.4 mg/dL (0.2-1.0); CO2 26.7 mmol/L (21.0-32.0); CREATININE 0.6 mg/dL (0.55-1.02); Calcium 8.3 mg/dL (8.5-10.1); Chloride 102 mmol/L (98-107); Ferritin 13 ng/mL (8-252); Glucose 93 mg/dL (74-106); Sodium 138 mmol/L (136-145); TSH 1.46 uIU/mL (0.36-3.74); Total Protein 7.6 g/dL (6.4-8.2)
[2020-12-31 14:42] LABS: FREE T4 0.73 ng/dL (0.76-1.46)
[2020-12-31 22:17] LABS: Thyroglobulin Antibody <15 U/mL (<=60); Thyroperoxidase Antibody <28 U/mL (<=60)
== END 2020-12-31 02:31 | disposition home or self-care (01) ==
LOC: LBO 02:30
PROVIDERS: PCP Nurse Practitioner; Visit Provider Emergency Medicine
DX: E61.1 Iron deficiency (principal); E03.9 Hypothyroidism, unspecified
CPT/HCPCS: 36415; 80053; 86376; 82728; 83540; 83550; 84439; 84443; 84481; 84482; 85025

== ENCOUNTER 2021-03-10 03:07 | Outpatient (CLI) | payer BC, SELFPAY ==
[2021-03-10 15:18] LABS: Abs Immature Grans 0.01 10^3/uL (0.0-0.06); Absolute Basophil Count 0.05 10^3/uL (0.0-0.2); Absolute Lymphocyte Count 1.56 10^3/uL (1.2-3.4); Absolute Neutrophil Count 2.97 10^3/uL (1.2-6.7); HCT 39.4 % (36.0-46.0); HGB 12.9 g/dL (11.2-15.7); Immature Grans % 0.2; Lymphocytes % 30.6; MCH 31.2 pg (27.0-33.0); MCHC 32.7 % (32.0-36.0); MCV 95.2 fL (80-95); MPV 9.3 fL (8.0-11.0); Monocytes % 7.9; Neutrophils % 58.3; Nucleated RBC 0 %; Platelet Count 239 10^3/uL (130-400); RBC 4.14 10^6/uL (3.93-5.22); RDW 13.8 % (11.7-14.6); RDW-SD 48.5 fL; WBC 5.09 10^3/uL (4.4-10.8)
[2021-03-10 15:53] LABS: ALT 16 U/L (14-59); AST 18 U/L (15-37); Albumin 3.9 g/dL (3.4-5.0); Alkaline Phosphatase 38 U/L (46-116); Anion Gap 7.5 mmol/L (3-11); BUN 15 mg/dL (7-18); Bilirubin, Total 0.4 mg/dL (0.2-1.0); CO2 26.5 mmol/L (21.0-32.0); CREATININE 0.6 mg/dL (0.55-1.02); Calcium 8.6 mg/dL (8.5-10.1); Chloride 104 mmol/L (98-107); Glucose 96 mg/dL (74-106); Potassium 4.3 mmol/L (3.5-5.1); Sodium 138 mmol/L (136-145); TSH 1.45 uIU/mL (0.36-3.74); Total Protein 7.1 g/dL (6.4-8.2)
[2021-03-10 16:21] LABS: Iron 138 ug/dL (50-170); Total Iron Binding Capacity 346 ug/dL (250-450); Transferrin Sat 40 % (15-50)
[2021-03-10 16:33] LABS: Vitamin B12 819 pg/mL (193-986)
[2021-03-10 16:54] LABS: Vitamin D 25 Total 44.8 ng/mL (30-100)
[2021-03-10 16:55] LABS: Folate > 20.0 ng/mL (8.6-20.0)
[2021-03-10 21:28] LABS: T3,Free 3.9 pg/mL (2.8-5.3)
[2021-03-11 09:55] LABS: Transferrin 257 mg/dL (201-352)
[2021-03-11 15:45] LABS: Thyroglobulin Antibody <15 U/mL (<=60); Thyroperoxidase Antibody <28 U/mL (<=60)
[2021-03-13 15:52] LABS: Methylmalonic Acid 0.11 nmol/mL (<=0.40)
[2021-03-13 17:05] LABS: T3 (Triiodothyronine) Reverse 6.7 ng/dL (10-24)
[2021-03-18 01:40] LABS: Pyridoxal 5-Phosphate (PLP), P 54 mcg/L (5-50)
== END 2021-03-10 03:08 | disposition home or self-care (01) ==
PROVIDERS: PCP Nurse Practitioner; Visit Provider Internal Medicine
DX: E61.1 Iron deficiency (principal); E03.9 Hypothyroidism, unspecified; R68.89 Other general symptoms and signs; E55.9 Vitamin D deficiency, unspecified; E53.8 Deficiency of other specified B group vitamins
CPT/HCPCS: 36415; 80053; 80186; 82306; 86376; 82607; 82746; 83540; 83550; 84207; 84439; 84443; 84466; 84481; 84482; 85025

== ENCOUNTER 2021-05-23 03:41 | Outpatient (CLI) | payer BC, SELFPAY ==
[2021-05-23 08:25] LABS: Absolute Basophil Count 0.03 10^3/uL (0.0-0.2); Absolute Eosinophil Count 0.08 10^3/uL (0.0-0.7); Absolute Lymphocyte Count 1.07 10^3/uL (1.2-3.4); Absolute Monocyte Count 0.19 10^3/uL (0.1-0.8); Absolute Neutrophil Count 1.64 10^3/uL (1.2-6.7); Eosinophils % 2.7; HCT 37.9 % (36.0-46.0); HGB 12.5 g/dL (11.2-15.7); Lymphocytes % 35.5; MCH 31.6 pg (27.0-33.0); MCV 95.9 fL (80-95); MPV 8.6 fL (8.0-11.0); Monocytes % 6.3; Neutrophils % 54.5; Nucleated RBC 0 %; Platelet Count 294 10^3/uL (130-400); RBC 3.95 10^6/uL (3.93-5.22); RDW-SD 42.6 fL; WBC 3.01 10^3/uL (4.4-10.8)
[2021-05-23 09:24] LABS: Iron 43 ug/dL (50-170); Total Iron Binding Capacity 349 ug/dL (250-450); Transferrin Sat 12 % (15-50)
[2021-05-23 09:32] LABS: ALT 20 U/L (14-59); AST 19 U/L (15-37); Albumin 4.1 g/dL (3.4-5.0); Alkaline Phosphatase 32 U/L (46-116); Anion Gap 9.5 mmol/L (3-11); BUN 14 mg/dL (7-18); Bilirubin, Total 0.8 mg/dL (0.2-1.0); CO2 27.5 mmol/L (21.0-32.0); CREATININE 0.7 mg/dL (0.55-1.02); Calcium 8.4 mg/dL (8.5-10.1); Chloride 104 mmol/L (98-107); FREE T4 0.75 ng/dL (0.76-1.46); Glucose 90 mg/dL (74-106); Potassium 3.9 mmol/L (3.5-5.1); Sodium 141 mmol/L (136-145); TSH 0.85 uIU/mL (0.36-3.74); Total Protein 6.9 g/dL (6.4-8.2)
[2021-05-23 17:14] LABS: T3,Free 2.7 pg/mL (2.8-5.3)
[2021-05-23 18:17] LABS: Thyroglobulin Antibody <15 U/mL (<=60); Thyroperoxidase Antibody <28 U/mL (<=60)
[2021-05-29 14:49] LABS: Pyridoxal 5-Phosphate (PLP), P 18 mcg/L (5-50)
[2021-05-30 14:43] LABS: T3 (Triiodothyronine) Reverse 9.4 ng/dL (10-24)
== END 2021-05-23 03:42 | disposition home or self-care (01) ==
LOC: LBO 03:41
PROVIDERS: PCP Nurse Practitioner; Visit Provider Emergency Medicine
DX: E61.1 Iron deficiency (principal); E53.9 Vitamin B deficiency, unspecified; E03.9 Hypothyroidism, unspecified
CPT/HCPCS: 36415; 80053; 86376; 83540; 83550; 84207; 84439; 84443; 84481; 84482; 85025

== ENCOUNTER 2021-07-03 02:23 | Outpatient (CLI) | payer BC, SELFPAY ==
[2021-07-03 08:23] LABS: ESR 1 mm/hr (0-20)
[2021-07-03 08:24] LABS: Abs Immature Grans 0.01 10^3/uL (0.0-0.06); Absolute Basophil Count 0.05 10^3/uL (0.0-0.2); Absolute Eosinophil Count 0.11 10^3/uL (0.0-0.7); Absolute Lymphocyte Count 1.43 10^3/uL (1.2-3.4); Absolute Monocyte Count 0.23 10^3/uL (0.1-0.8); Absolute Neutrophil Count 1.89 10^3/uL (1.2-6.7); Basophils % 1.3; HCT 40.2 % (36.0-46.0); Immature Grans % 0.3; Lymphocytes % 38.4; MCH 31.7 pg (27.0-33.0); MCHC 32.3 % (32.0-36.0); MPV 9.2 fL (8.0-11.0); Monocytes % 6.2; Neutrophils % 50.8; Nucleated RBC 0 %; Platelet Count 302 10^3/uL (130-400); RDW 12.2 % (11.7-14.6); RDW-SD 44.3 fL; WBC 3.72 10^3/uL (4.4-10.8)
[2021-07-03 08:33] LABS: Hemoglobin A1C 5.1 % (<5.7)
[2021-07-03 10:46] LABS: Vitamin D 25 Total 37.8 ng/mL (30-100)
[2021-07-03 10:52] LABS: ALT 20 U/L (14-59); AST 17 U/L (15-37); Alkaline Phosphatase 43 U/L (46-116); Anion Gap 7.7 mmol/L (3-11); BUN 12 mg/dL (7-18); Bilirubin, Total 0.6 mg/dL (0.2-1.0); CO2 28.3 mmol/L (21.0-32.0); CREATININE 0.7 mg/dL (0.55-1.02); Calcium 8.9 mg/dL (8.5-10.1); Calculated LDL 102 mg/dL (<100); Chloride 105 mmol/L (98-107); Cholesterol 201 mg/dL (<200); Ferritin 9 ng/mL (8-252); Folate 18.9 ng/mL (8.6-20.0); Glucose 88 mg/dL (74-106); HDL Cholesterol 91 mg/dL (40-60); Magnesium 2.2 mg/dL (1.8-2.4); Potassium 4.3 mmol/L (3.5-5.1); Sodium 141 mmol/L (136-145); Total Protein 6.9 g/dL (6.4-8.2); Triglyceride 42 mg/dL (<150); Vitamin B12 531 pg/mL (193-986)
[2021-07-03 11:58] LABS: Iron 68 ug/dL (50-170); Total Iron Binding Capacity 360 ug/dL (250-450); Transferrin Sat 19 % (15-50)
[2021-07-03 12:03] LABS: C-Reactive Protein 0.06 mg/dL (0.0-0.3); FREE T4 0.64 ng/dL (0.76-1.46)
[2021-07-03 18:03] LABS: Ionized Calcium 1.12 mmol/L (1.12-1.32)
[2021-07-03 18:43] LABS: T3,Free 3.7 pg/mL (2.8-5.3)
[2021-07-03 20:39] LABS: Thyroglobulin Antibody <15 U/mL (<=60); Thyroperoxidase Antibody 31 U/mL (<=60)
[2021-07-04 09:22] LABS: Homocysteine 9.2 umol/L (5.0-13.9)
[2021-07-07 13:32] LABS: Pyridoxal 5-Phosphate (PLP), P 72 mcg/L (5-50)
[2021-07-11 15:47] LABS: Methylmalonic Acid 0.11 nmol/mL (<=0.40)
== END 2021-07-03 02:24 | disposition home or self-care (01) ==
LOC: LBO 02:23
PROVIDERS: PCP Nurse Practitioner; Visit Provider Emergency Medicine
DX: E55.9 Vitamin D deficiency, unspecified (principal); E53.8 Deficiency of other specified B group vitamins; E03.9 Hypothyroidism, unspecified; E61.1 Iron deficiency; E78.5 Hyperlipidemia, unspecified; R79.82 Elevated C-reactive protein (CRP); R68.89 Other general symptoms and signs
CPT/HCPCS: 36415; 80053; 80061; 80186; 82306; 83090; 85652; 86376; 82330; 82607; 82728; 82746; 83036; 83540; 83550; 83735; 84207; 84439; 84443; 84481; 84482; 85025; 86140

== ENCOUNTER 2021-09-01 01:45 | Outpatient (CLI) | payer BC, SELFPAY ==
[2021-09-01 12:51] LABS: Abs Immature Grans 0.01 10^3/uL (0.0-0.06); Absolute Basophil Count 0.04 10^3/uL (0.0-0.2); Absolute Eosinophil Count 0.09 10^3/uL (0.0-0.7); Absolute Lymphocyte Count 1.62 10^3/uL (1.2-3.4); Absolute Monocyte Count 0.31 10^3/uL (0.1-0.8); Absolute Neutrophil Count 2.96 10^3/uL (1.2-6.7); Basophils % 0.8; Eosinophils % 1.8; HCT 40.2 % (36.0-46.0); HGB 13.1 g/dL (11.2-15.7); Immature Grans % 0.2; Lymphocytes % 32.2; MCHC 32.6 % (32.0-36.0); MCV 95.3 fL (80-95); MPV 9.7 fL (8.0-11.0); Monocytes % 6.2; Neutrophils % 58.8; Nucleated RBC 0 %; Platelet Count 294 10^3/uL (130-400); RBC 4.22 10^6/uL (3.93-5.22); RDW 12.6 % (11.7-14.6); RDW-SD 43.8 fL; WBC 5.03 10^3/uL (4.4-10.8)
[2021-09-01 13:56] LABS: ALT 30 U/L (14-59); AST 29 U/L (15-37); Alkaline Phosphatase 51 U/L (46-116); Anion Gap 5.6 mmol/L (3-11); BUN 11 mg/dL (7-18); Bilirubin, Total 0.2 mg/dL (0.2-1.0); CO2 28.4 mmol/L (21.0-32.0); CREATININE 0.7 mg/dL (0.55-1.02); Calcium 8.7 mg/dL (8.5-10.1); Chloride 104 mmol/L (98-107); FREE T4 0.61 ng/dL (0.76-1.46); Glucose 112 mg/dL (74-106); Sodium 138 mmol/L (136-145); Total Protein 7.1 g/dL (6.4-8.2)
[2021-09-01 14:59] LABS: Vitamin D 25 Total 53.1 ng/mL (30-100)
[2021-09-01 16:00] LABS: Vitamin B12 638 pg/mL (193-986)
[2021-09-01 22:51] LABS: T3,Free 2.4 pg/mL (2.8-5.3)
[2021-09-02 10:16] LABS: Thyroglobulin Antibody <15 U/mL (<=60); Thyroperoxidase Antibody <28 U/mL (<=60)
[2021-09-04 17:27] LABS: T3 (Triiodothyronine) Reverse 8.1 ng/dL (10-24)
== END 2021-09-01 01:46 | disposition home or self-care (01) ==
LOC: LBO 01:46
PROVIDERS: PCP Nurse Practitioner; Visit Provider Emergency Medicine
DX: R68.89 Other general symptoms and signs (principal); E03.9 Hypothyroidism, unspecified; E53.8 Deficiency of other specified B group vitamins; E55.9 Vitamin D deficiency, unspecified
CPT/HCPCS: 36415; 80053; 82306; 86376; 82607; 82746; 84439; 84443; 84481; 84482; 85025

== ENCOUNTER 2021-11-05 03:03 | Outpatient (CLI) | payer BC, SELFPAY ==
[2021-11-05 17:35] LABS: FREE T4 0.64 ng/dL (0.76-1.46)
[2021-11-06 18:45] LABS: T3,Free 3.6 pg/mL (2.8-5.3)
[2021-11-07 15:36] LABS: Thyroglobulin Antibody <15 U/mL (<=60); Thyroperoxidase Antibody 32 U/mL (<=60)
[2021-11-11 14:11] LABS: T3 (Triiodothyronine) Reverse 6.6 ng/dL (10-24)
== END 2021-11-05 03:04 | disposition home or self-care (01) ==
LOC: LBO 03:03
PROVIDERS: PCP Nurse Practitioner; Visit Provider Emergency Medicine
DX: E03.9 Hypothyroidism, unspecified (principal)
CPT/HCPCS: 36415; 86376; 84439; 84443; 84481; 84482

== ENCOUNTER 2022-01-01 03:55 | Outpatient (CLI) | payer OTHER, SELFPAY ==
[2022-01-01 10:57] LABS: T4 4.4 ug/mL (4.7-13.3); TSH 0.29 uIU/mL (0.36-3.74)
[2022-01-01 18:05] LABS: T3,Free 3.7 pg/mL (2.8-5.3)
[2022-01-01 20:38] LABS: Thyroglobulin Antibody <15 U/mL (<=60); Thyroperoxidase Antibody 45 U/mL (<=60)
[2022-01-02 18:21] LABS: Iodine, S 43 ng/mL (40-92)
[2022-01-06 15:03] LABS: T3 (Triiodothyronine) Reverse 6.5 ng/dL (10-24)
== END 2022-01-01 03:56 | disposition home or self-care (01) ==
PROVIDERS: PCP Nurse Practitioner; Visit Provider Emergency Medicine
DX: E03.9 Hypothyroidism, unspecified (principal); E01.8 Other iodine-deficiency related thyroid disorders and allied conditions
CPT/HCPCS: 36415; 86376; 82190; 84436; 84443; 84481; 84482

== ENCOUNTER 2022-03-03 01:52 | Outpatient (CLI) | payer OTHER, SELFPAY ==
[2022-03-03 10:38] LABS: FREE T4 0.72 ng/dL (0.76-1.46); TSH 0.02 uIU/mL (0.36-3.74)
[2022-03-03 17:40] LABS: T3,Free 4.6 pg/mL (2.8-5.3)
[2022-03-03 18:41] LABS: Thyroglobulin Antibody <15 U/mL (<=60); Thyroperoxidase Antibody 32 U/mL (<=60)
[2022-03-09 17:38] LABS: T3 (Triiodothyronine) Reverse 7.5 ng/dL (10-24)
== END 2022-03-03 01:53 | disposition home or self-care (01) ==
LOC: LBO 01:53
PROVIDERS: PCP Nurse Practitioner; Visit Provider Emergency Medicine
DX: E03.9 Hypothyroidism, unspecified (principal)
CPT/HCPCS: 36415; 86376; 84439; 84443; 84481; 84482

== ENCOUNTER 2022-04-23 02:30 | Outpatient (CLI) | payer OTHER, SELFPAY ==
[2022-04-23 16:02] LABS: Abs Immature Grans 0.01 10^3/uL (0.0-0.06); Absolute Basophil Count 0.05 10^3/uL (0.0-0.2); Absolute Eosinophil Count 0.07 10^3/uL (0.0-0.7); Absolute Neutrophil Count 4.48 10^3/uL (1.2-6.7); Basophils % 0.8; Eosinophils % 1.1; HCT 40.5 % (36.0-46.0); HGB 13.6 g/dL (11.2-15.7); Immature Grans % 0.2; Lymphocytes % 24.2; MCHC 33.6 % (32.0-36.0); MCV 92 fL (80-95); MPV 9.4 fL (8.0-11.0); Monocytes % 6.1; Neutrophils % 67.6; Platelet Count 281 10^3/uL (130-400); RBC 4.39 10^6/uL (3.93-5.22); RDW-SD 40.4 fL; WBC 6.61 10^3/uL (4.4-10.8)
[2022-04-23 16:47] LABS: Iron 141 ug/dL (50-170); Total Iron Binding Capacity 391 ug/dL (250-450); Transferrin Sat 36 % (15-50)
[2022-04-23 17:41] LABS: ALT 23 U/L (14-59); AST 21 U/L (15-37); Albumin 4.4 g/dL (3.4-5.0); Alkaline Phosphatase 44 U/L (46-116); Anion Gap 12.1 mmol/L (3-11); BUN 12 mg/dL (7-18); Bilirubin, Total 0.5 mg/dL (0.2-1.0); CO2 24.9 mmol/L (21.0-32.0); CREATININE 0.5 mg/dL (0.55-1.02); Calcium 9.6 mg/dL (8.5-10.1); Chloride 102 mmol/L (98-107); Estimated GFR 121.52 (mL/min/1.73m2); Ferritin 31 ng/mL (8-252); Folate 19.7 ng/mL (8.6-20.0); Glucose 97 mg/dL (74-106); Potassium 3.6 mmol/L (3.5-5.1); Sodium 139 mmol/L (136-145); TSH (W/Ref FT4) 0.02 uIU/mL (0.36-3.74); Total Protein 7.9 g/dL (6.4-8.2); Vitamin B12 448 pg/mL (193-986)
[2022-04-23 21:35] LABS: Ionized Calcium 1.11 mmol/L (1.14-1.35)
[2022-04-24 19:43] LABS: T3,Free 4.7 pg/mL (2.8-5.3)
[2022-04-25 14:53] LABS: EBV EA IgG Negative (Negative)
[2022-04-27 15:26] LABS: Pyridoxal 5-Phosphate (PLP), P 36 mcg/L (5-50)
[2022-04-28 11:04] LABS: EBNA IgG Positive (Negative); EBV Interpretation (See Note); VCA IgG Positive (Negative); VCA IgM Negative (Negative)
[2022-04-28 15:12] LABS: T3 (Triiodothyronine) Reverse 15 ng/dL (10-24)
== END 2022-04-23 02:31 | disposition home or self-care (01) ==
LOC: LBO 02:30
PROVIDERS: PCP Nurse Practitioner; Visit Provider Emergency Medicine
DX: E03.9 Hypothyroidism, unspecified (principal); D50.9 Iron deficiency anemia, unspecified; R79.82 Elevated C-reactive protein (CRP); E55.9 Vitamin D deficiency, unspecified; E61.2 Magnesium deficiency; R53.83 Other fatigue; E67.2 Megavitamin-B6 syndrome; R73.9 Hyperglycemia, unspecified
CPT/HCPCS: 36415; 80053; 82306; 86663; 82330; 82607; 82728; 82746; 83540; 83550; 83735; 84207; 84439; 84443; 84481; 84482; 85025; 86664; 86665

== ENCOUNTER 2022-04-29 12:13 | Outpatient (CLI) | payer OTHER, SELFPAY ==
[2022-05-02 11:15] LABS: EBV EA IgG Negative (Negative)
[2022-05-06 17:02] LABS: T3 (Triiodothyronine) Reverse 14 ng/dL (10-24)
== END 2022-04-29 12:14 | disposition home or self-care (01) ==
LOC: LBO 12:15
PROVIDERS: PCP Nurse Practitioner; Visit Provider Emergency Medicine
DX: E03.9 Hypothyroidism, unspecified (principal); I10 Essential (primary) hypertension; R53.82 Chronic fatigue, unspecified
CPT/HCPCS: 36415; 86663; 84482

== ENCOUNTER 2022-05-15 02:19 | Outpatient (CLI) | payer OTHER, SELFPAY ==
--- OUTSIDE RECORDS SUMMARY | 2022-05-15 02:30 | XMS_ITS | Encounter Summary ---
:1980 Author Organization [facility] Address [address] [place] [address] Care Team Providers Name Role Phone Unknown, Provider Primary Care Provider Encounter Details Date Type Department Care Team Description 01/01/2022 Lab Requisition [facility] Outr Resulting Lab, Pathology & Laboratory Provider [facility] [address] [place] [address] Social History Tobacco Use Types Packs/Day Years Used Date Never Smoker Smokeless Tobacco: Never Used Alcohol Use Standard Drinks/Week Comments Not Currently 0 (1 standard drink = 0.6 oz pure alcoho l) Education Answer Date Recorded What is the highest level of school Master's degree (e.g., M A, MS, 02/15/2020 you have completed or the highest Dick, MEd, SIDE BOSS, JARVIS) degree you have received? Sex Assigned at Date Recorded Not on file documented as of this encounter Functional Status Functional Status Response Date of Assessment Because of a physical, mental, or emotional condition, No 09/03/2020 does this person have difficulty doing errands alone such as visiting a doctor's office or shopping? Cognitive Status Response Date of Assessment Because of a physical, mental, or emotional condition, No 09/03/2020 does this person have serious difficulty concentrating, remembering, or making decisions? documented as of this encounter Plan of Treatment Not on filedocumented as of this encounter Procedures Procedure Name Priority Date/Time Associated Diagnosis Comme nts T3 FREE Routine 01/01/2022 9:10 EDT Results for this procedure are i n the results section. THYROID ANTIBODIES Routine 01/01/2022 9:10 EDT Re sults for this procedure are i n the results section. documented in this encounter Results T3 FREE (01/01/2022 9:10 EDT) Pathologist Sig nature T3, Free 3.7 2.8 - 5.3 pg/mL [facility] Specimen Blood - Venous blood (substance) Performing Organization Address City/[facility]/ZIP Code Phon e Number [facility] [address] [place] [address] SERVICES THYROID ANTIBODIES (01/01/2022 9:10 EDT) Pathologist Sig nature Anti-Thyroglobulin <15 <=60 U/mL [facility] SERVICES Thyroperoxidase Ab 45 <=60 U/mL [facility] SERVICES Specimen Blood - Venous blood (substance) Performing Organization Address City/[facility]/ZIP Code Phon e Number [facility] [address] [place] [address] SERVICES documented in this encounter Visit Diagnoses Not on filedocumented in this encounter Care Teams Environmental Solutions Engineer Relationship Specialty Start Date End Date Unknown, Provider, PCP - General 04/07/16 documented as of this encounter
--- OUTSIDE RECORDS SUMMARY | 2022-05-15 02:30 | XMS_ITS | Encounter Summary ---
:1980 Author Organization [facility] [place] [address] Care Team Providers Name Role Phone Olinda Henderson APRN Primary Care Provider Encounter Details Date Type Department Care Team Description 09/27/2020 Abstract Cardiology at [facility] Elizabeth Duenas RN [address] [place] [address] Social History Tobacco Use Types Packs/Day Years Used Date Former Smoker Cigarettes 0.5 Quit: 12/05/19 06 Smokeless Tobacco: Never Used Alcohol Use Standard Drinks/Week Comments Not Currently 0 (1 standard drink = 0.6 oz pure alcoho l) Sex Assigned at Date Recorded Not on file documented as of this encounter Plan of Treatment Not on filedocumented as of this encounter Visit Diagnoses Not on filedocumented in this encounter Care Teams Public Safety Teacher Relationship Specialty Start Date End Date Olinda Henderson APRN PCP - General Internal Medicine 07/24/[address] [place] [address] documented as of this encounter
--- OUTSIDE RECORDS SUMMARY | 2022-05-15 02:30 | XMS_ITS | Encounter Summary ---
:1980 Author Organization [facility] Address [address] [place] [address] Care Team Providers Name Role Phone Unknown, Provider Primary Care Provider Encounter Details Date Type Department Care Team Description 04/24/2022 Lab Requisition [facility] Outr Resulting Lab, Pathology & Laboratory Provider [facility] [address] [place] [address] Social History Tobacco Use Types Packs/Day Years Used Date Never Smoker Smokeless Tobacco: Never Used Alcohol Use Standard Drinks/Week Comments Not Currently 0 (1 standard drink = 0.6 oz pure alcoho l) Education Answer Date Recorded What is the highest level of school Master's degree (e.g., M A, MS, 02/15/2020 you have completed or the highest Dick, MEd, FIELD SALES EXECUTIVE, JARVIS) degree you have received? Sex Assigned [...] Name Priority Date/Time Associated Diagnosis Comme nts CHIDI-MONROY PANEL Routine 04/23/2022 15:50 Resul ts for this EDT procedure are i n the results section. T3 FREE Routine 04/23/2022 15:50 Results for this EDT procedure are i n the results section. documented in this encounter Results T3 FREE (04/23/2022 15:50 EDT) Pathologist Sig nature T3, Free 4.7 2.8 - 5.3 pg/mL [facility] Specimen Blood - Venous blood (substance) Performing Organization Address City/State/ZIP Code Phon e Number [facility] [address] [place] [address] SERVICES (ABNORMAL) CHIDI-MONROY PANEL (04/23/2022 15:50 EDT) EBV VCA IgM, Antibody NegativeComment: Negative [facility] Absence of [facility] detectable VCA IgM SERVICES antibodies. EBV VCA IgG, Antibody Positive Negative [facility] (A)Comment: CENTER [facility] Presence of SERVICES detectable VCA IgG antibodies. EBNA IgG Antibody Positive Negative [facility] (A)Comment: CENTER [facility] Presence of SERVICES detectable EBNA IgG antibodies. 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
--- OUTSIDE RECORDS SUMMARY | 2022-05-15 02:30 | XMS_ITS | Encounter Summary ---
:1980 Author Organization [facility] [place] [address] Care Team Providers Name Role Phone Olinda Henderson APRN Primary Care Provider Encounter Details Date Type Department Care Team Description 12/09/2020 TH Visit Endocrinology at [facility] Garrison Walton, Hypothyroidism, acquired; (TeleHealth) [facility] Otto Fuller MD [place] [address] [facility] [phone] [place] [address] Social History Tobacco Use Types Packs/Day Years Used Date Former Smoker Cigarettes 0.5 Quit: 12/05/19 06 Smokeless Tobacco: Never Used Alcohol Use Standard Drinks/Week Comments Not Currently 0 (1 standard drink = 0.6 oz pure alcoho l) Sex Assigned at Date Recorded Not on file documented as of this encounter Last Filed Vital Signs Vital Sign Reading Time Taken Comments Blood Pressure 90/60 12/09/2020 4:37 PM EDT Pulse - - Temperature - - Respiratory Rate 12 12/09/2020 4:37 PM EDT Oxygen Saturation - - Inhaled Oxygen Concentration - - Weight 52.2 kg (115 lb) 12/09/2020 4:37 PM EDT Height 167.6 cm (5' 6) 12/09/2020 4:37 PM EDT Body Mass Index 18.56 12/09/2020 4:37 PM EDT documented in this encounter Patient Instructions Patient InstructionsOtto Walton MD - 12/09/2020 4:30 PM EDT Recent lab: 04/29/2020 Recheck lab 09/27/20 Low [facility] cortisol: Blood cortisol 12, good IM-bvqw-ta-hs : 2.0-0.9-0.1, <0.1L ACTH 26, entirely normal low free T3 1.9L (normal 2.4-4.2); Total T3 115, ok borderline low FT4 0.7L (nl 0.7-2.5) 0.72L => ok to try low dose LT4 daily TSH 1.24 2.03 DHEAS 1.68 (nl 0.35-8.47); DHEA 54 Free Testosterone <10L IGF1 Pending Estradiol 27.8L 19L, ok for follicular phase Progesterone 2.01 0.9, ok for follicular phase FSH 20.7H 8.6, ok for follicular phase LH 7.0 TPO Ab & Tg Ab Negative 25vitamin D (normal 30-100) 28.9L, despite taking OTC-vitD 5,000 iu daily => to try prescription vitD 50,000 iu weekly TTG Ab Negative Iron 71 B12 192L (11/23/19) 553, ok now BMP Na 139, K 3.9, Cr 0.7, BG 95, Ca 9.0 Recommendation: 1. Medication: Patient will low dose levothyroxine 12.5-25 mcg qAM to replenish her FT4 thyroid reserve (already stopped taking compound T3 7.5 mcg qd in Sep 2020) To switch OTCvitD 5,000 iu daily to prescription vitamin D 50,000 iu weekly until the the level is up in the mid range before we taper the dose down to q2-4 weeks later in summer. To cont OTC-B12 1,000 mcg qd as her B12 went up nicely from 192 to 553 in Sep 2020. Patient will continue all current medications, healthy diet and execise regularly as tolerated to keep weight stable Good news that she does not have evidence of central adrenal insufficiency and both T3 and TSH were still in normal range. 2. Lab: check lab in 6-8 weeks at [facility] lab as ordered Orders Placed This Encounter Procedures ??? TSH ??? T4, free ??? Vitamin D, 25-Hydroxy We will let patient know lab test results and adjust medication if needed during this interim. 3. RTC: Next visit 6-12 months as needed and will help adjust levothyroxine dose and vitD interval if indicated during the interim. documented in this encounter Progress Notes Otto Walton MD - 12/09/2020 4:30 PM EDT Images from the original note were not included. Endocrinology Follow-up Note Date of Visit: 12/09/2020 Patient: Name: Checo West :1980 PCP: Olinda Henderson APRN Reason for Follow-up Checo West is being seen in the clinic at the request of Dr. Olinda Henderson APRN and Tamia Stuart NP (rheum at [facility] who saw pt recently on 09/04/20) for the further evaluation of chronic fatigue with polyarthralgia and previous lab ordered by middle school professional on 05/23/20 showed low cortisol and low FT3 and borderline low FT4. Patient verbally consents to this telehealth visit and understands that this visit may be billed, similar to a clinic office visit. I provided care to the patient today via VDO call. The total time associated with this visit was 32 minutes. Brief History of Present Illness: Checo West is a very pleasant 39 y.o. 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 She notes worsening symptoms gradually and seen by her local tapper bit (Isi Stuart NP) who noted that her previous lab by insole doubler showed low salivary cortisol across the board from LA-aqls-zt-hs 2.0-0.9-0.1-<0.1 and also low free T3 at 1.9 (normal 2.4-4.2) on 04/29/20, and therefore referred her to see us for further endocrine eval. Sister has autoimmune Alexis's thyroiditis and SLE in maternal aunt. She denies biotin or steroidsupplement which may interfere with lab tests. No BCPs or gluten sensitivity that she is aware of. She used to try compound T3 37.5 mcg daily prior without improvement of her fatigue so she already quit it since Sep 2020. She has been taking high dose OTC-vitamin D 5,000 iu daily for chronic vitaminD deficiency but still having low vitamin D persistently. No celiac disease. She used to have low B12 at 192 on 11/23/19 and then better after taking OTC-B12 1,000 mcg po daily supplement. She still feels tired and having worsening migraine GUNN for 3-4 days and then better after having periods monthly. Recent lab: 04/29/2020 Low salvery cortisol: ST-lcyx-db-hs : 2.0-0.9-0.1, <0.1L low free T3 1.9L (normal 2.4-4.2) borderline low FT4 0.7 (nl 0.7-2.5) TSH 1.24, inappropriate for low FT3/FT4 DHEAS 1.68 (nl 0.35-8.47) Free Testosterone <10L Estradiol 27.8L Progesterone 2.01 FSH 20.7H LH 7.0 TPO Ab & Tg Ab Negative TTG Ab Negative (*No ACTH or AMA yet) Per Tamia Stuart NP's recent note on 09/03/20 in the referral package: Results for CHECO WEST ( ) Ref. Range 08/07/2019 13:52 Tryptase Latest Ref Range: <=11.1 ng/mL 6.3 CU Index Latest Ref Range: <10 3.9 Alpha Gal IgE Latest Ref Range: <0.10 kU/L 0.11 (H) TSH Latest Ref Range: 0.27 - 4.20 mcIU/mL 2.26 Thyroperox Ab Latest Ref Range: <=34 IU/mL <10 Strongyloides IgG Latest Ref Range: Negative Negative *Previous reports (FLAVIO 2009;[id number]) have demonstrated that patients with IgE antibodies to yygdgzyrn-h-7,3-galactose are at risk for delayed anaphylaxis, angioedema, or urticaria following consumption of beef, pork, or vance. ROS: Constitutional: + tiredness. No recent weight change, no heat or cold intolerance but + Raynaud's Endocrine: + thyroid problems. + abnormal facial redness /or flushing. No sweating No galactorrhea or breast tenderness. Irregular menstrual cycles with +low sexual desire. Integument: No excessive hair growth, balding, acne or oily skin. No ulcerations. No easily bruising. Neurological: +migraine headache. No weakness. No seizure, fainting, Occasional orthostatic and dizziness.due to low BP 90/60 Eyes: No recent vision change ENT: No dysphagia, dental issues Cardiovascular: No chest pain or palpitations Respiratory: No cough, wheezing, shortness of breath GI: Normal appetite. No nausea, vomiting, diarrhea, constipation : No frequent urinary tract infections or polyuria Musculoskeletal: + joint aches, muscle pain. Some neck, shoulder, knee and back pain Psych: No depression, anxiety PMH: Patient Active Problem List Diagnosis Code ??? 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 Benign neoplasm of other specified sites of skin D23.9 ??? Depression F32.9 ??? Body aches R52 ??? Fatigue R53.83 ??? Positive COLTON (antinuclear antibody) R76.8 ??? Myalgia M79.10 ??? Vitamin D deficiency E55.9 ??? Urticaria L50.9 ??? Shortness of breath R06.02 ??? Family history of malignant neoplasm of breast Z80.3 ??? Vitamin B12 deficiency (low B12 192 on 11/23/19) E53.8 ??? Low serum cortisol levels and low FT3 1.9 (normal 2.4-4.2) on 05/23/20 E27.40 ??? Joint stiffness M25.60 ??? Malaise and fatigue R53.81, R53.83 ??? Rash of face R21 Current Outpatient Medications on File Prior to Visit Medication Sig Dispense Refill ??? metroNIDAZOLE (METROGEL) 0.75 % Gel Apply topically 2 times daily. 45 g 0 ??? cholecalciferol, Vitamin D3, 25 mcg (1,000 unit) Capsule Take 1 capsule by mouth daily. ??? hydrOXYchloroQUINE (Plaquenil) 200 mg Tablet Take 200 mg by mouth Daily. ??? ibuprofen (Advil;Motrin) 200 mg Tablet Take 200 mg by mouth Every 6 hours as needed. ??? [DISCONTINUED] ergocalciferoL, vitamin D2, (vitamin D) 50,000 unit Capsule Take 1 capsule by mouth once a week. Or as instructed per MD. (Patient not taking: Reported on 12/09/2020) 13 capsule 4 ??? Azelaic Acid (FINACEA) 15 % Gel Apply 1 Application topically daily. After skin is thoroughly washed and patted dry, gently but thoroughly massage a thin film of azelaic acid cream into the affected area twice daily, in the morning and evening. 30 g 0 ??? [DISCONTINUED] liothyronine (Cytomel) 5 mcg Tablet Take 1.5 tablets by mouth daily. (Patient nottaking: Reported on 12/09/2020) 45 tablet 11 No current facility-administered medications on file prior to visit. Allergy: Allergies Allergen Reactions ??? Unable To Find [Unclassified Drug] Hives and Other (See Comments) Red Meat ~ found out when lived in [facility]. Will give her hives and stomach ache. Social History: Social History Socioeconomic History ??? Marital status: Spouse name: Mitul West ??? Number of children: Not on file ??? Years of education: Not on file ??? Highest education level: Not on file Occupational History ??? Not on file Tobacco Use ??? Smoking status: Former Smoker Packs/day: 0.50 Types: Cigarettes Quit date: 12/04/2005 Years since quittin.0 ??? Smokeless tobacco: Never Used Vaping Use ??? Vaping Use: Never used Substance and Sexual Activity ??? Alcohol use: Not Currently ??? Drug use: Never ??? Sexual activity: Yes Partners: Male Other Topics Concern ??? Not on file Social History Narrative ??? Not on file Social Determinants of Health Financial Resource Strain: ??? Difficulty of Paying Living Expenses: Food Insecurity: ??? Worried About Running Out of Food in the Last Year: ??? Ran Out of Food in the Last Year: Transportation Needs: ??? Lack of Transportation (Medical): ??? Lack of Transportation (Non-Medical): Physical Activity: ??? Days of Exercise per Week: ??? 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 Arthritis Mother ??? Thyroid Disease Sister ??? Lupus Maternal Aunt +SLE in maternal aunt PE: BP 90/60 Resp 12 Ht 167.6 cm (5' 6) Wt 52.2 kg (115 lb) BMI 18.56 kg/m?? Appearance: Patient is very pleasant white female, thin, clinically euthyroid, not in acute distress HEENT: PERRLA, EOMI, no lid lag or exophthalmos. No facial acne or hirsutism. Neck: supple, no goiter visible Ext: normal skin appearance no edema Neuro: no weakness, non-focal, no facial asymmetry. Recent lab: 04/29/2020 Recheck lab 09/27/20 Low salvery cortisol: Blood cortisol 12, good ZE-aviu-xf-hs : 2.0-0.9-0.1, <0.1L ACTH 26, entirely normal low free T3 1.9L (normal 2.4-4.2); Total T3 115, ok borderline low FT4 0.7L (nl 0.7-2.5) 0.72 => ok to try low dose levothyroxine 25 mcg 0.5-1 tab daily TSH 1.24 2.03 DHEAS 1.68 (nl 0.35-8.47); DHEA 54 ACTH 26 Free Testosterone <10L Estradiol 27.8L 19L, ok for follicular phase Progesterone 2.01 0.9, ok for follicular phase FSH 20.7H 8.6, ok for follicular phase LH 7.0 TPO Ab & Tg Ab Negative 25vitamin D (normal 30-100) 28.9L, despite taking OTC-vitD 5,000 iu daily => to try prescription vitD 50,000 iu weekly TTG Ab Negative Iron 71 B12 192L (11/23/19) 553, ok now Anti-parietal cell Ab Pending COLTON Pending BMP Na 139, K 3.9, Cr 0.7, BG 95, Ca 9.0 Assessment: Checo West is a 39 y.o. female with chronic fatigue of unclear etiology with migraine GUNN/PMT3-4 days before having her periods and recent lab showed slightly low FT4 and 25vitamin D despite taking high dose OTC-vitamin D 5,000 iu daily. Previous lab showed low salivary cortisol but repeat labtests showed excellent cortisol, ACTH, and adrenal DHEAS, so there is no evidence of central hypothyroid or adrenal insufficiency. She has normal monthly periods, & breastfed her baby for 7 mowithout problem (except for mastitis). Also Raynaud's and midly high COLTON in the past suggestive of some mild auto- immune process. She has normal pituitary hormones and repeat lab showed good resolution of B12 deficiency on B12 replacement but still having vit D deficiency despite taking high dose OTC-vitamin D 5,000 iu daily for a long whil e. OK to use prescription vitD 50,000 iu weekly for 3 months until the the level is up in the mid range and then taper to 1 capsule q 2 weeks from this summer. Previous TTG Ab and TPO Ab were negative but 10-15% of pts with Alexis's thyroiditis may have negative thyroid Abs. Previously she had mildheterogenous changes on ultrasound prior, and her sister has Alexis's thyroiditis while her maternal aunt has SLE. Recommendation: 1. Medication: Patient will low dose levothyroxine 25 mcg qAM to replenish her FT4 thyroid reserve (already stopped taking compound T3 7.5 mcg qd in Sep 2020) To switch OTCvitD 5,000 iu daily to prescription vitamin D 50,000 iu weekly until the the level is up in the mid range before we taper the dose down to q2-4 weeks later in summer. To cont OTC-B12 1,000 mcg qd as her B12 went up nicely from 192 to 553 in Sep 2020. Patient will continue all current medications, healthy diet and execise regularly as tolerated to keep weight stable Good news that she does not have evidence of central adrenal insufficiency and both T3 and TSH were still in normal range. 2. Lab: check lab in 6-8 weeks at [facility] lab as ordered Orders Placed This Encounter Procedures ??? TSH ??? T4, free ??? Vitamin D, 25-Hydroxy We will let patient know lab test results and adjust medication if needed during this interim. 3. RTC: Next visit 6-12 months as needed and will help adjust levothyroxine dose and vitD interval if indicated during the interim. We have reviewed our plan outlined above with the patient and patient verbalized understanding and is agreeable with this management. All questions were answered and most of the time was spent on counseling about patient pertinent medical conditions, medications adjustment including pros and cons of starting medication, the diagnostic and therapeutic decisions, and coordination of care. Thank you for allowing me to participate in the care of this very pleasant and interesting patient. Otto Walton MD, PhD, FACE, FACP CC: Olinda Henderson APRN documented in this encounter Plan of Treatment Not on filedocumented as of this encounter Visit Diagnoses Diagnosis Hypothyroidism, acquired Unspecified hypothyroidism Vitamin D deficiency Unspecified vitamin D deficiency documented in this encounter Care Teams Cardiac Specialist Relationship Specialty Start Date End Date Olinda Henderson APRN PCP - General Internal Medicine 07/24/[address] [place] [address] documented as of this encounter
--- OUTSIDE RECORDS SUMMARY | 2022-05-15 02:30 | XMS_ITS | Clinical Summary ---
:1980 Author Organization [facility] Address [address] [place] [address] Care Team Providers Name Role Phone Unknown, Provider Primary Care Provider Allergies No known active allergies Medications Medication Sig Dispensed Refills Start Date End Date Status ibuprofen (MOTRIN) 200 Take 200 mg by 0 Active mg tablet mouth every 6 hours as needed for Pain. ergocalciferol (DRISDOL; Take 50,000 0 Active VITAMIN D2) 1,250 mcg Units by mouth (50,000 unit) every 7 days. capsuleIndications: vitamin D deficiency levothyroxine Take 25 mcg by 0 A ctive (SYNTHROID) 25 mcg mouth daily. tabletIndications: hypothyroidism Active Problems Problem Noted Date Shortness of breath 02/15/2020 Polyarthralgia 02/15/2020 Myalgia 02/15/2020 Positive COLTON (antinuclear antibody) 02/15/2020 Malaise and fatigue 01/26/2020 Encounters Date Type Specialty Care Team Description 04/24/2022 Lab Requisition Clinical Laboratory Outr Resulting Lab , Provider 04/23/2022 Lab Requisition Clinical Laboratory Outr Resulting Lab , Provider 03/03/2022 Lab Requisition Clinical Laboratory Outr Resulting Lab , Provider from Last 3 Months Medical History Medical History Date Comments Low vitamin D level Migraine Family History Medical History Relation Name Comments Cancer Father Chronic fatigue Mother Fibromyalgia Mother Hypotension Mother Migraines Mother Relation Name Status Comments Father Alive Mother Alive Social History Tobacco Use Types Packs/Day Years Used Date Never Smoker Smokeless Tobacco: Never Used Alcohol Use Standard Drinks/Week Comments Not Currently 0 (1 standard drink = 0.6 oz pure alcoho l) Education Answer Date Recorded What is the highest level of school Master's degree (e.g., M A, MS, 02/15/2020 you have completed or the highest Dick, MEd, GENERAL PURCHASING AGENT, JARVIS) degree you have received? Sex Assigned at Date Recorded Not on file Last Filed Vital Signs Vital Sign Reading Time Taken Comments Blood Pressure 108/60 01/26/2020 0841 EDT Pulse - - Temperature - - Respiratory Rate - - Oxygen Saturation - - Inhaled Oxygen Concentration - - Weight 49.9 kg (110 lb) 02/21/2020 0901 EDT Height - - Body Mass Index - - Plan of Treatment Health Maintenance Due Date Last Done Comments Hepatitis C Screen 1980 COVID-19 Vaccine (#1) 06/19/1981 Procedures Procedure Name Priority Date/Time Associated Diagnosis Comme nts T3 FREE Routine 04/23/2022 15:50 Results for this EDT procedure are i n the results section. CHIDI-SONG PANEL Routine 04/23/2022 15:50 Resul ts for this EDT procedure are i n the results section. CALCIUM, IONIZED Routine 04/23/2022 15:50 Results for this EDT procedure are i n the results section. HOLD SST Today 03/03/2022 10:01 Results for this EDT procedure are i n the results section. T3 FREE Today 03/03/2022 10:01 Results for this EDT procedure are i n the results section. THYROID ANTIBODIES Today 03/03/2022 10:01 Resul ts for this EDT procedure are i n the results section. from Last 3 Months Results (ABNORMAL) CALCIUM, IONIZED (04/23/2022 15:50 EDT) Calcium, Ionized 1.11 (L)Comment: 1.14 - 1.35 [facility] Testing performed mmol/L LABORATORY on heparinized SERVICES plasma. Results may be biased 5% lower than that of whole blood. Specimen Blood - Venous blood (substance) Performing Organization Address City/State/ZIP Code Phon e Number [facility] [address] [place] [address] SERVICES (ABNORMAL) CHIDI-SONG PANEL (04/23/2022 15:50 EDT) EBV VCA IgM, Antibody NegativeComment: Negative [facility] Absence of CENTER LABORATORY detectable VCA IgM SERVICES antibodies. EBV VCA IgG, Antibody Positive Negative [facility] (A)Comment: [facility] Presence of SERVICES detectable VCA IgG antibodies. EBNA IgG Antibody Positive Negative [facility] (A)Comment: [facility]ENTER LAB[facility]ORY Presence of SERVICES detectable EBNA IgG antibodies. EBV Interpretation Results would [facility] indicate past [facility]ENTER [facility] infection with SERVICES Chidi-Song virus Specimen Blood - Venous blood (substance) Performing Organization Address City/[facility]/ZIP Code Phon e Number [facility] [address] [place] [address] SERVICES T3 FREE (04/23/2022 15:50 EDT)Only the most recent of2 resultswithin the time period is included. Pathologist Sig nature T3, Free 4.7 2.8 - 5.3 pg/mL [facility] LAB[facility] TORY SERVICES Specimen Blood - Venous blood (substance) Performing Organization Address City/[facility]/ZIP Code Phon e Number [facility] [address] [place] [address] SERVICES HOLD SST (03/03/2022 10:01 EDT) Pathologist Sig nature Hold Hold [facility] LABOR[facility] Y SERVICES Specimen Blood - Venous blood (substance) Performing Organization Address [facility]/ZIP Code Phon e Number [facility] [address] [place] [address] SERVICES THYROID ANTIBODIES (03/03/2022 10:01 EDT) Pathologist Sig nature Anti-Thyroglobulin <15 <=60 U/mL [facility] SERVICES Thyroperoxidase Ab 32 <=60 U/mL [facility] SERVICES Specimen Blood - Venous blood (substance) Performing Organization Address [facility]/ZIP [facility] Phon e Number [facility] [address] [place] [address] SERVICES from Last 3 Months Care Teams Generator Worker Relationship Specialty Start Date End Date Unknown, Provider, PCP - General 04/07/16
--- OUTSIDE RECORDS SUMMARY | 2022-05-15 02:30 | XMS_ITS | Encounter Summary ---
:1980 Author Organization [facility] [place] [address] Care Team Providers Name Role Phone Unavailable Primary Care Provider Unavailable Encounter Details Date Type Department Care Team Description 01/17/2014 Follow-Up [facility] Deja Montiel, JOHN [address] [place] [address] [place] [address] [phone] (Wo rk) Social History Tobacco Use Types Packs/Day Years Used Date Former Smoker Cigarettes 0.5 Quit: 12/05/19 06 Smokeless Tobacco: Never Used Sex Assigned at Date Recorded Not on file documented as of this encounter Plan of Treatment Not on filedocumented as of this encounter Visit Diagnoses Not on filedocumented in this encounter
--- OUTSIDE RECORDS SUMMARY | 2022-05-15 02:30 | XMS_ITS | Encounter Summary ---
:1980 Author Organization [facility] [place] [address] Care Team Providers Name Role Phone Unavailable Primary Care Provider Unavailable Encounter Details Date Type Department Care Team Description 10/19/2013 Office Visit [facility] Deysi Rodriguez [address] [place] [address] [phone] [place], [place] [address] (Wo rk) Social History Tobacco Use Types Packs/Day Years Used Date Never Assessed Sex Assigned at Date Recorded Not on file documented as of this encounter Plan of Treatment Not on filedocumented as of this encounter Visit Diagnoses Not on filedocumented in this encounter
--- OUTSIDE RECORDS SUMMARY | 2022-05-15 02:30 | XMS_ITS | Encounter Summary ---
:1980 Author Organization [facility] [place] [address] Care Team Providers Name Role Phone Olinda Henderson APRN Primary Care Provider Reason for Visit Consultation (Routine) - Closed Specialty Diagnoses / Procedures Referred By Contact Refer red To Contact Allergy Diagnoses Other urticaria CHRONIC RECURRENT HIVES Olinda Henderson APRN [facility] [address] [place] [id number] Referral ID Status Reason Start Date Expiration Date Visits V isits Requested Authorized [id number] Closed Consult, Test 07/24/2019 07/23/2020 [facility] PCP Updated and/or Approved Encounter Details Date Type Department Care Team Description 08/07/2019 Office Visit Allergy at [facility] Nya Coombs, Acute urticaria [facility] [place] [address] [facility] [phone] ALLERGY DEPT [place], [place] [address] (Wo rk) Social History Tobacco Use Types Packs/Day Years Used Date Former Smoker Cigarettes 0.5 Quit: 12/05/19 06 Smokeless Tobacco: Never Used Sex Assigned at Date Recorded Not on file documented as of this encounter Last Filed Vital Signs Vital Sign Reading Time Taken Comments Blood Pressure 97/71 08/07/2019 12:53 PM EST Pulse 65 08/07/2019 12:53 PM EST Temperature - - Respiratory Rate - - Oxygen Saturation 98% 08/07/2019 12:53 PM EST Inhaled Oxygen Concentration - - Weight 49.9 kg (110 lb) 08/07/2019 12:53 PM EST Height 167.6 cm (5' 6) 08/07/2019 12:53 PM EST Body Mass Index 17.75 08/07/2019 12:53 PM EST documented in this encounter Progress Notes Nya Coombs MD - 08/07/2019 1:00 PM EST Images from the original note were not included. [facility] Section of Allergy and Clinical Immunology Primary Care Provider: Olinda Henderson APRN Patient Age: 38 y.o. Patient : 1980 Reason for Evaluation: hives, possible food allergies Historian: self Subjective: Patient ID: Iona Callahan is a 38 y.o. female seen for consultation regarding intermittent urticaria. She reports hives of unknown etiology. Many years ago, she thought she had an allergy to red meat, after being in contact with Bison ticks. She is not aware of recent exposure. One week ago, she had hives after dinner. She ate a kale salad with croutons. She made the salad andused viegar dressing (which she has also since used). It is a salad she eats every day. She bought the croutons. She has eaten kale since without issue. She has also eaten bread without issue. She wonders if there may be cross-contamination? The hives start on her face and ears, and then may appear all over body. Sometimes she feels tight in throat. When she takes Benedryl 50 mg, symptoms improve and resolve. She often cooks at home. She also wondered if she had a reaction after using Pantene. She would prefer not to take any medications. Allergies Allergen Reactions ??? Unable To Find [Unclassified Drug] Hives and Other (See Comments) Red Meat ~ found out when lived in [facility]. Will give her hives and stomach ache. ??? Chloroquine Rash No family history on file. Social History Tobacco Use ??? Smoking status: Former Smoker Packs/day: 0.50 Types: Cigarettes Last attempt to quit: 12/04/2005 Years since quittin.6 ??? Smokeless tobacco: Never Used Substance Use Topics ??? Alcohol use: Not on file ??? Drug use: Not on file Status: . Review of Systems Constitutional: Negative. HENT: Positive for trouble swallowing. Eyes: Negative. Respiratory: Negative. Cardiovascular: Negative. Gastrointestinal: Negative. Endocrine: Positive for cold intolerance. Genitourinary: Negative. Musculoskeletal: Positive for myalgias. Skin: Positive for rash. hives Neurological: Positive for headaches. Psychiatric/Behavioral: Positive for dysphoric mood. Environmental History: +house with forced hot air +wood stove No pets Objective: BP 97/71 Pulse 65 Ht 167.6 cm (5' 6) Wt 49.9 kg (110 lb) SpO2 98% BMI 17.75 kg/m?? No flowsheet data found. Wt Readings from Last 3 Encounters: 08/07/19 49.9 kg (110 lb) 01/17/14 52.6 kg (116 lb) 12/04/13 52.2 kg (115 lb) Physical Exam Vitals signs reviewed. Constitutional: Appearance: Normal appearance. HENT: Head: Normocephalic and atraumatic. Right Ear: Tympanic membrane normal. Left Ear: Tympanic membrane normal. Nose: Nose normal. Mouth/Throat: Mouth: Mucous membranes are moist. Pharynx: Oropharynx is clear. Eyes: Extraocular Movements: Extraocular movements intact. Conjunctiva/sclera: Conjunctivae normal. Pupils: Pupils are equal, round, and reactive to light. Neck: Musculoskeletal: Normal range of motion and neck supple. Cardiovascular: Rate and Rhythm: Normal rate and regular rhythm. Pulses: Normal pulses. Heart sounds: No murmur. No gallop. Pulmonary: Effort: Pulmonary effort is normal. Breath sounds: Normal breath sounds. No stridor. No wheezing, rhonchi or rales. Abdominal: General: Bowel sounds are normal. There is no distension. Palpations: Abdomen is soft. Musculoskeletal: Normal range of motion. Skin: General: Skin is warm and dry. Findings: No erythema or rash. Neurological: Mental Status: She is alert. Psychiatric: Thought Content: Thought content normal. Review of Medical Records: I reviewed records from [facility] in [place], [place]. Assessment and Plan: Iona Callahan is a 38 y.o. female with recurrent chronic hives of unclear etiology. I recommend afood symptom diary, but unclear if food-related. Consider trial of levocetirizine 5 mg daily to see if hives and throat tightness may be prevented. For history of possible red meat allergy, check Ofdtzzauu-fvuds-4,3-galactose IgE. For recurrent hives, check thyroid function. Due to travel history, check Strongyloides IgG. All questions were answered, and patient/parents expressed understanding of the plan. Thank you for the opportunity to participate in the care of your patient. Ongoing follow-up with thepatient's primary care physician is recommended and encouraged. If I can provide any further assistance, please do not hesitate to contact me. Next visit (studies planned): 4-6 weeks for follow-up Nya Landis MD [employer] Supervisor, Allergy and Clinical Immunology [place] [phone] [email or web address] documented in this encounter Plan of Treatment Not on filedocumented as of this encounter Procedures Procedure Name Priority Date/Time Associated Comments Diagnosis HC THYROID STIMULATING Routine 08/07/2019 1:52 PM Acute urtica [place] Results for this HORMONE, SERUM EST procedure are in the results section. HC [facility] STRONGYLOIDES Routine 08/07/2019 1:52 PM Acute urticari a Results for this IGG EST procedure are i n the results section. [facility] GALACTOSE ALPHA Routine 08/07/2019 1:52 PM Acute urtica [place] Results for this 1,3 GALACTOSE IGE EST procedure are in the results section. HC [facility] CHRONIC Routine 08/07/2019 1:52 PM Acute urticaria Resu lts for this UTICARIA INDEX EST procedure are in the results section. HC VENIPUNCTURE Routine 08/07/2019 1:52 PM Acute urticaria Res ults for this EST procedure are i n the results section. HC TRYPTASE Routine 08/07/2019 1:52 PM Acute urticaria Result s for this EST procedure are i n the results section. documented in this encounter Results Strongyloides IgG (08/07/2019 1:52 PM EST) [facility] gist Method Time Signature Strongyloides IgG Negative Negative [facility] Comment: No detectable levels of IgG antibodies t o Strongyloides. Repeat testing in 1-2 weeks if clinicall y indicated. Test Performed by: [facility] [address] [place] [id number] 90 Biology Tutor: Jerry Reyez M.D. Ph. D.; CLIA# [id number] Specimen Anatomical Collection Method Collection Time Receive d Time (Source) Location / / Volume Laterality Blood specimen 08/07/2019 1:52 PM 020 4:22 (specimen) EST PM EST Resulting Agency Comment Spec In Lab Nya Landis MD CHEMISTRY ORDERABLES Performing Organization Address City/[facility]/ZIP Code Phon e Number [address] TSH [place] (08/07/2019 1:52 PM EST) athologist Signature TSH 2.26 0.27 - 4.20 [facility] mcIU/mL [facility] Specimen Anatomical Collection Method Collection Time Receive d Time (Source) Location / / Volume Laterality Blood specimen 08/07/2019 1:52 PM 020 2:32 (specimen) EST PM EST Resulting Agency Comment Spec In Lab Nya Landis MD CHEMISTRY ORDERABLES Performing Organization Address City/[facility]/[place] [address] Tryptase (08/07/2019 1:52 PM EST) P athologist Signature Tryptase 6.3 <=11.1 [facility] ng/mL [facility] Comment: Total tryptase concentrations that are p ersistently greater than 20 ng/mL may be consistent with systemic mastocytosis . Specimen Anatomical Collection Method Collection Time Receive d Time (Source) Location / / Volume Laterality Blood specimen 08/07/2019 1:52 PM 020 7:31 (specimen) EST AM EST Resulting Agency Comment Spec In Lab Nya Landis MD CHEMISTRY ORDERABLES Performing Organization Address City/[facility]/[place] [address] Chronic Urticaria Index (08/07/2019 1:52 PM EST) athologist Signature CU Index 3.9 <10 [facility] Comment: The CU Index(R) test is the second gener ation Functional Anti-FceR test. ??Patients with a CU Ind ex(R) greater than or equal to 10 have basophil reactive fa ctors in their serum which supports an autoimmune basis for disease. *This test was developed and its performance c haracteristics determined by [employer]. It has n ot been cleared or approved by the U.S. Food and Drug Admin istration. Test Performed by: [employer] [employer], Interface [address] [place] [address] Specimen Anatomical Collection Method Collection Time Receive d Time (Source) Location / / Volume Laterality Blood specimen 08/07/2019 1:52 PM 020 4:11 (specimen) EST PM EST Resulting Agency Comment Spec In Lab Nya Landis MD CHEMISTRY ORDERABLES Performing Organization Address City/[facility]/[place] [address] Thyroid peroxidase antibody (08/07/2019 1:52 PM EST) athologist Signature Thyroperox Ab <10 <=34 IU/mL [facility] Specimen Anatomical Collection Method Collection Time Receive d Time (Source) Location / / Volume Laterality Blood specimen 08/07/2019 1:52 PM 020 7:31 (specimen) EST AM EST Resulting Agency Comment Spec In Lab Nya Landis MD IMMUNOLOGY ORDERABLES Performing Organization Address City/[facility] [place] [address] (ABNORMAL) Emxrnhqsb-sebdf-3,3-galactose IgE (08/07/2019 1:52 PM EST) Analysis Performed At Path logist Time Signature Alpha Gal IgE 0.11 (H) <0.10 kU/L [facility] Comment: Previous reports (FLAVIO 2009;123:426-433) have demonstrated that patients with IgE antibodies to galactos e-a-1,3-galactose are at risk for delayed anaphylaxis, angioedema , or urticaria following consumption of beef, pork, or vance. *This test was developed and its perform ance characteristics determined by [facility]. It has n ot been cleared or approved by the U.S. Food and Drug Administration . Performed at: [facility] [facility];[address];[place] [address];Salma Vallecillo PhD HCLD(ABB);[facility] A# [id number] Specimen Anatomical Collection Method Collection Time Receive d Time (Source) Location / / Volume Laterality Blood specimen 08/07/2019 1:52 PM 020 1:47 (specimen) EST PM EST Resulting Agency Comment Spec In Lab Nya Landis MD CHEMISTRY ORDERABLES Performing Organization Address City/State/[place] [address] documented in this encounter Visit Diagnoses Diagnosis Acute urticaria Other specified urticaria documented in this encounter Care Teams Project Admin Relationship Specialty Start Date End Date Olinda Henderson APRN PCP - General Internal Medicine 07/24/[address] [place] [address] documented as of this encounter
--- OUTSIDE RECORDS SUMMARY | 2022-05-15 02:30 | XMS_ITS | Encounter Summary ---
:1980 Author Organization [facility] [place] [address] Care Team Providers Name Role Phone Olinda Henderson APRN Primary Care Provider Reason for Visit Consultation (Routine) - Closed Specialty Diagnoses / Procedures Referred By Contact Refer red To Contact Endocrinology Diagnoses Unspecified adrenocortical insufficiency Other malaise Other fatigue Tamia Stuart, [facility]b HORTICULTURAL NURSERY ASSISTANT [address] [address] [facility] [place] [address] [place], [place] Fax: [phone] Referral ID Status Reason Start Date Expiration Date Visits V isits Requested Authorized [id number] Closed Consult, 09/04/2020 09/04/2021 1 1 Test & Treat Encounter Details Date Type Department Care Team Description 09/24/2020 TH Visit Endocrinology at [facility] C Isabelle, Low serum cortisol levels an d low FT3 1.9 (normal 2.4-4.2) on 05/23/20; (TeleHealth) [facility] Otto Fuller MD Chronic fatigue; [facility] Vitamin B12 deficiency (low B12 192 on 11/23/19); [place] [address] CENTER Vitamin D deficiency; [phone] ENDOCRINOLOGY [place] [address] Social History Tobacco Use Types Packs/Day Years Used Date Former Smoker Cigarettes 0.5 Quit: 12/05/19 06 Smokeless Tobacco: Never Used Alcohol Use Standard Drinks/Week Comments Not Currently 0 (1 standard drink = 0.6 oz pure alcoho l) Sex Assigned at Date Recorded Not on file documented as of this encounter Last Filed Vital Signs Vital Sign Reading Time Taken Comments Blood Pressure 90/60 09/24/2020 2:32 PM EST Pulse - - Temperature - - Respiratory Rate 12 09/24/2020 2:32 PM EST Oxygen Saturation - - Inhaled Oxygen Concentration - - Weight 49.9 kg (110 lb) 09/24/2020 2:32 PM EST Height 167.6 cm (5' 6) 09/24/2020 2:32 PM EST Body Mass Index 17.75 09/24/2020 2:32 PM EST documented in this encounter Patient Instructions Patient InstructionsChaidaruOtto adler MD - 09/24/2020 2:00 PM EST Recent lab: 04/29/2020 Recheck lab 09/27/20 Low salvery cortisol: Blood cortisol 12, good XO-venv-ed-hs : 2.0-0.9-0.1, <0.1L ACTH 26, entirely normal low free T3 1.9L (normal 2.4-4.2); Total T3 115, ok borderline low FT4 0.7 (nl 0.7-2.5) 0.72 TSH 1.24, 2.03 DHEAS 1.68 (nl 0.35-8.47); DHEA 54 Free Testosterone <10L IGF1 Pending Estradiol 27.8L 19L, ok for follicular phase Progesterone 2.01 0.9, ok for follicular phase FSH 20.7H 8.6, ok for follicular phase LH 7.0 TPO Ab & Tg Ab Negative 25vitamin D 28.9L TTG Ab Negative Iron 71 B12 192L (11/23/19) 553, ok now Anti-parietal cell Ab Pending COLTON Pending BMP Na 139, K 3.9, Cr 0.7, BG 95, Ca 9.0 Addendum 10/07/20: Lab on 09/27/20 showed entirely normal adrenal-pituitary axis and her thyroid function has normalized with good T3, better FT4, and still normal TSH. B12 is better but 25vitamin D is still slightly low at 28.9 (nl 30- 100). => OK to use prescription vitD 50,000 iu weekly for 3 months until the the level is up in the mid range and then taper to 1 capsule q 2 weeks from this summer. Recommendation: 1. Medication: Patient will hold compound T3 7.5 mcg qd for now as she may adrenal work up first before taking thyroid supplement otherwise she won;t feel better. To cont vitD 1,000-2,000 iu daily and may need a higher dose if her vitD remains low for her body aches (fibromyalgia-like symptoms). If her vitD is low, we will use prescription vitD 50,000 iu weekly until the the level is up in themid range => OK to use prescription vitD 50,000 iu weekly for 3 months until the the level is up in the mid range and then taper to 1 capsule q 2 weeks from this summer. To cont OTC-B12 1,000 mcg qd and may switch to injection monthly if it remains low with anti-parietal Ab - pending for the results. 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 2. Lab: check lab tomorrow am as ordered Orders Placed This Encounter Procedures ??? Cortisol ??? ACTH ??? TSH ??? T4, free ??? T3 Total ??? DHEA-sulfate ??? Vitamin D, 25-Hydroxy ??? Vitamin B12 ??? Iron and TIBC ??? Follicle Stimulating Hormone ??? Estradiol ??? Progesterone ??? Basic Metabolic Panel (non-fasting) ??? Insulin Like GF-1 ??? Prolactin ??? Anti-Mullerian Hormone ??? Parietal Cell Antibody IgG X-ray/Imaging studies: we will plan to do office thyroid US when I see her in person next visit We will let patient know lab test results and adjust medication if needed during this interim. 3. RTC: Next visit soon in 2 weeks on 10/08 at 1pm and may do ACTH (cortrosyn) stimulation test for her adrenal insufficency at next visit. Otto Sharpe MD, PhD, FACE, FACP documented in this encounter Progress Notes Otto Sharpe MD - 09/24/2020 2:00 PM EST Images from the original note were not included. Endocrinology Consultation Date of Visit: 09/23/2020 Patient: Name: Checo West :1980 Reason for Consult: Checo West is being seen in the clinic today at the request of Dr. Sandra Henderson APRN and Tamia Stuart NP (rheum at [facility] who saw pt recently on 09/04/20) for the evaluation of chronic fatigue with polyarthralgia and previous lab ordered by branch controller on 05/23/20 showed low cortisol and low FT3. Patient's previous record as are the lab results were reviewed. Performed by: Dr. Otto Sharpe MD, PhD, FACE, FACP Patient verbally consents to this telehealth visit and understands that this visit may be billed, similar to a clinic office visit. I provided care to the patient today via VDO call. The total time associated with this visit was 76 minutes. Brief History of Present Illness: Checo West is a very pleasant 39 y.o. female with a history of migraine since teenage (worsewith period with PMT), polyarthralgia with mildly elevated COLTON 1:80 (homogenous), [...] worsening symptoms gradually and seen by her localrheumatologist (Isi Stuart NP) who noted that her previous lab by meat butcher showed low salivary cortisol across the board from SL-cgyc-gq-hs 2.0-0.9-0.1-<0.1 and also low free T3 at 1.9 (normal 2.4-4.2) on 04/29/20, and therefore referred her to see us for further endocrine eval. Sister has autoimmune Alexis's thyroiditis and SLE in maternal aunt. She denies biotin or steroidsupplement which may interfere with lab tests. No BCPs or gluten sensitivity that she is aware of. Recent lab: 04/29/2020 Low salvery cortisol: IM-wzwz-cw-hs : 2.0-0.9-0.1, <0.1L low free T3 1.9L [...] demonstrated that patients with IgE antibodies to sykktcifm-l-3,3-galactose are at risk for delayed anaphylaxis, angioedema, [...] Patient Active Problem List Diagnosis Code ??? Healthcare maintenance Z00.00 ??? Migraine headache G43.909 ??? Benign neoplasm of skin of lower limb, including hip D23.70 ??? Depression F32.9 ??? Body aches R52 ??? Fatigue R53.83 ??? Positive COLTON (antinuclear antibody) R76.8 ??? Polyarthralgia M25.50 ??? Vitamin D deficiency E55.9 ??? Urticaria L50.9 ??? Shortness of breath R06.02 ??? Family history of malignant neoplasm of breast Z80.3 Current Outpatient Medications on File Prior to Visit Medication Sig Dispense Refill ??? hydrOXYchloroQUINE (Plaquenil) 200 mg Tablet Take 200 mg by mouth Daily. ??? ibuprofen (Advil;Motrin) 200 mg Tablet Take 200 mg by mouth Every 6 hours as needed. No current facility-administered medications on file prior to visit. Allergy: Allergies Allergen Reactions ??? Unable To Find [Unclassified Drug] Hives and Other (See Comments) Red Meat ~ found out when lived in [facility]. Will give her hives and stomach ache. ??? Chloroquine Rash Social History: Social History Socioeconomic History ??? Marital status: Spouse name: Not on file ??? Number of children: Not on file ??? Years of education: Not on file ??? Highest education level: Not on file Occupational History ??? Not on file Tobacco Use ??? Smoking status: Former Smoker Packs/day: 0.50 Types: Cigarettes Quit date: 12/04/2005 Years since quittin.8 ??? Smokeless tobacco: Never Used Substance and Sexual Activity ??? Alcohol use: Not on file ??? Drug use: Not on file ??? Sexual activity: Not on file Other Topics Concern ??? Not on file Social History Narrative ??? Not on file Social Determinants of Health Financial Resource Strain: ??? Difficulty of Paying Living Expenses: Not on file Food Insecurity: ??? Worried About Running Out of Food in the Last Year: Not on file ??? Ran Out of Food in the Last Year: Not on file Transportation Needs: ??? Lack of Transportation (Medical): Not on file ??? Lack of Transportation (Non-Medical): Not on file Physical Activity: ??? Days of Exercise per Week: Not on file ??? 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 Arthritis Mother ??? Thyroid Disease Sister +SLE in maternal aunt PE: BP 90/60 Resp 12 Ht 167.6 cm (5' 6) Wt 49.9 kg (110 lb) BMI 17.75 kg/m?? Appearance: Patient is very pleasant white female, thin, clinically euthyroid, not in acute distress HEENT: PERRLA, EOMI, no lid lag or exophthalmos. No facial acne or hirsutism. Neck: supple, no goiter visible Ext: normal skin appearance no edema Neuro: no weakness, non-focal, no facial asymmetry. Addendum: Recent lab: 04/29/2020 Recheck lab 09/27/20 Low salvery cortisol: Blood cortisol 12, good RF-msxf-kl-hs : 2.0-0.9-0.1, <0.1L ACTH 26, entirely normal low free T3 1.9L (normal 2.4-4.2); Total T3 115, ok borderline low FT4 0.7 (nl 0.7-2.5) 0.72 TSH 1.24, 2.03 DHEAS 1.68 (nl 0.35-8.47); DHEA 54 Free Testosterone <10L IGF1 Pending Estradiol 27.8L 19L, ok for follicular phase Progesterone 2.01 0.9, ok for follicular phase FSH 20.7H 8.6, ok for follicular phase LH 7.0 TPO Ab & Tg Ab Negative 25vitamin D 28.9L TTG Ab Negative Iron 71 B12 192L (11/23/19) 553, ok now Anti-parietal cell Ab Pending COLTON Pending BMP Na 139, K 3.9, Cr 0.7, BG 95, Ca 9.0 Assessment: Checo West is a 39 y.o. female with chronic fatigue of unclear etiology and low salivary cortisol plus low FT4/FT3 with inappropriately low normal TSH suggestive of a posible central cause of hypothyroidism and possible adrenal insufficiency. No hemorrhage 2 yrs ago ( & breastfed her baby for 7 mo without problem except for mastitis). She is still having monthly periods butlonger interval 31 days which is new for her over the past year. Also Raynaud's and midly high COLTON in the past suggestive of some mild auto-immune process -? Autoimmune hyophysitis with isolated adrenal insufficiency, which can be transient. We will check the whole pituitary hormonal profile and recheck lab for her B12 and vit D deficiency as well (?autoimmune pernicious anemia and celiac-like enteropathy). Previous TTG Ab and TPO Ab were negative but 10-15% of pts with Alexis's thyroiditis may have negative thyroid Abs. Previously she had mild heterogenous changes on ultrasound and her sister has Alexis's thyroiditis while her maternal aunt has SLE. Addendum 10/07/20: Lab on 09/27/20 showed entirely normal adrenal-pituitary axis and her thyroid function has normalized with good T3, better FT4, and still normal TSH. B12 is better but 25vitamin D is still slightly low at 28.9 (nl 30- 100). => OK to use prescription vitD 50,000 iu weekly for 3 months until the the level is up in the mid range and then taper to 1 capsule q 2 weeks from this summer. Recommendation: 1. Medication: Patient will hold compound T3 7.5 mcg qd for now as she may adrenal work up first before taking thyroid supplement otherwise she won;t feel better. To cont vitD 1,000-2,000 iu daily and may need a higher dose if her vitD remains low for her body aches (fibromyalgia-like symptoms). If her vitD is low, we will use prescription vitD 50,000 iu weekly until the the level is up in themid range => OK to use prescription vitD 50,000 iu weekly for 3 months until the the level is up in the mid range and then taper to 1 capsule q 2 weeks from this summer. To cont OTC-B12 1,000 mcg qd and may switch to injection monthly if it remains low with anti-parietal Ab - pending for the results. 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 2. Lab: check lab tomorrow am as ordered Orders Placed This Encounter Procedures ??? Cortisol ??? ACTH ??? TSH ??? T4, free ??? T3 Total ??? DHEA-sulfate ??? Vitamin D, 25-Hydroxy ??? Vitamin B12 ??? Iron and TIBC ??? Follicle Stimulating Hormone ??? Estradiol ??? Progesterone ??? Basic Metabolic Panel (non-fasting) ??? Insulin Like GF-1 ??? Prolactin ??? Anti-Mullerian Hormone ??? Parietal Cell Antibody IgG X-ray/Imaging studies: we will plan to do office thyroid US when I see her in person next visit We will let patient know lab test results and adjust medication if needed during this interim. 3. RTC: Next visit soon in 2 weeks on 10/08 at 1pm and may do ACTH (cortrosyn) stimulation test for her adrenal insufficency at next visit. We have reviewed our plan outlined above [...] this very pleasant and interesting patient. Otto Sharpe MD, PhD, FACE, FACP CC: Olinda Henderson APRN documented in this encounter Miscellaneous Notes Addendum Note - Otto Sharpe MD - 09/24/2020 2:00 PM EST Addended by: OTTO SHARPE on: 10/07/2020 11:08 PM Modules accepted: Orders documented in this encounter Plan of Treatment Not on filedocumented as of this encounter Visit Diagnoses Diagnosis Low serum cortisol levels and low FT3 1. 9 (normal 2.4-4.2) on 05/23/20 Glucocorticoid deficiency Chronic fatigue Other malaise and fatigue Vitamin B12 deficiency (low B12 192 on ) Other B-complex deficiencies Vitamin D deficiency Unspecified vitamin D deficiency Irregular periods Irregular menstrual cycle documented in this encounter Care Teams Machine Marker Relationship Specialty Start Date End Date Olinda Henderson APRN PCP - General Internal Medicine 07/24/[address] [place] [address] documented as of this encounter
--- OUTSIDE RECORDS SUMMARY | 2022-05-15 02:30 | XMS_ITS | Encounter Summary ---
:1980 Author Organization [facility] Address [address] [place] [address] Care Team Providers Name Role Phone Unknown, Provider Primary Care Provider Encounter Details Date Type Department Care Team Description 03/03/2022 Lab Requisition [facility] Outr Resulting Lab, Pathology & Laboratory Provider [facility] [address] [place] [address] Social History Tobacco Use Types Packs/Day Years Used Date Never Smoker Smokeless Tobacco: Never Used Alcohol Use Standard Drinks/Week Comments Not Currently 0 (1 standard drink = 0.6 oz pure alcoho l) Education Answer Date Recorded What is the highest level of school Master's degree (e.g., M A, MS, 02/15/2020 you have completed or the highest Dick, MEd, CANAL BOAT CAPTAIN, JARVIS) degree you have received? Sex Assigned [...] Name Priority Date/Time Associated Diagnosis Comme nts HOLD SST Today 03/03/2022 10:01 Results for this EDT procedure are i n the results section. T3 FREE Today 03/03/2022 10:01 Results for this EDT procedure are i n the results section. THYROID ANTIBODIES Today 03/03/2022 10:01 Resul ts for this EDT procedure are i n the results section. documented in this encounter Results HOLD SST (03/03/2022 10:01 EDT) Pathologist Sig nature Hold Hold [facility] Specimen Blood - Venous blood (substance) Performing Organization Address City/State/ZIP Code Phon e Number [facility] [address] [place] [address] SERVICES T3 FREE (03/03/2022 10:01 EDT) Pathologist Sig nature T3, Free 4.6 2.8 - 5.3 pg/mL [facility] Specimen Blood - Venous blood (substance) Performing Organization Address [facility]/ZIP Code Phon e Number [facility] [address] [place] [address] SERVICES THYROID ANTIBODIES (03/03/2022 10:01 EDT) Pathologist Sig nature Anti-Thyroglobulin <15 <=60 U/mL [facility] Thyroperoxidase Ab 32 <=60 U/mL [facility] Specimen Blood - Venous blood (substance) Performing Organization Address City/State/ZIP Code Phon e Number [facility] [address] [place] [address] SERVICES documented in this encounter Visit Diagnoses Not on filedocumented in this encounter Care Teams Firearms Assembly Supervisor Relationship Specialty Start Date End Date Unknown, Provider, PCP - General 04/07/16 documented as of this encounter
--- OUTSIDE RECORDS SUMMARY | 2022-05-15 02:30 | XMS_ITS | Encounter Summary ---
:1980 Author Organization [facility] [place] [address] Care Team Providers Name Role Phone Unavailable Primary Care Provider Unavailable Encounter Details Date Type Department Care Team Description 09/05/2015 Abstract [facility] [place] Provider, His [place] [employer] Jonny tay MD [address] [place] [address] Social History Tobacco Use Types Packs/Day Years Used Date Former Smoker Cigarettes 0.5 Quit: 12/05/19 06 Smokeless Tobacco: Never Used Sex Assigned at Date Recorded Not on file documented as of this encounter Last Filed Vital Signs Vital Sign Reading Time Taken Comments Blood Pressure 98/64 01/17/2014 10:59 AM EDT Pulse - - Temperature - - Respiratory Rate - - Oxygen Saturation - - Inhaled Oxygen Concentration - - Weight 52.6 kg (116 lb) 01/17/2014 10:59 AM EDT Height 162.6 cm (5' 4) 01/17/2014 10:59 AM EDT Body Mass Index 19.91 01/17/2014 10:59 AM EDT documented in this encounter Plan of Treatment Not on filedocumented as of this encounter Procedures Procedure Name Priority Date/Time Associated Diagnosis Comme nts EXTERNAL LAB CONCORD Routine 12/12/2013 Results for this ABSTRACT procedure are i n the results section . EXTERNAL PAP SMEAR Routine 12/12/2013 Results f or this RESULT PANEL procedure are i n the results section . documented in this encounter Results (ABNORMAL) External Labs for [place] Operations Engineer use only (12/12/2013) [facility] Time Signature HPV (RESULT) Negative (External Lab) His [place] Provider MD POINT OF CARE TEST ORDERABLE S (ABNORMAL) External Pap Smear (12/12/2013) Analysis Performed At [facility] Time Signature External PAP NILM (SEE Smear RPT) (External Lab) His [place] Provider MD POINT OF CARE TEST ORDERABLE S documented in this encounter Visit Diagnoses Not on filedocumented in this encounter
--- OUTSIDE RECORDS SUMMARY | 2022-05-15 02:30 | XMS_ITS | Encounter Summary ---
:1980 Author Organization [facility] [place] [address] Care Team Providers Name Role Phone Olinda Henderson APRN Primary Care Provider Reason for Visit Reason Comments Skin Check Encounter Details Date Type Department Care Team Description 01/24/2021 Office Visit Dermatology at [facility] Serg Gill MD [place] [address] [facility] [address] [place] [address] DERMATOLOGY [phone] [place], [place] [address] (Wo rk) Social History Tobacco Use Types Packs/Day Years Used Date Former Smoker Cigarettes 0.5 Quit: 12/05/19 06 Smokeless Tobacco: Never Used Alcohol Use Standard Drinks/Week Comments Not Currently 0 (1 standard drink = 0.6 oz pure alcoho l) Sex Assigned at Date Recorded Not on file documented as of this encounter Progress Notes Serg Gill MD - 01/24/2021 3:30 PM EDT Problem: Facial rash Iona is a 40-year-old woman of [place] ethnic descent would like a second opinion regarding a facial dermatitis of at least 1 year duration. It occurs about once a week now and is can be set off bystress or after a drink of alcohol. Usually she drinks hard apple cider if she drinks anything at all. The erythema will fade within a few hours. She does not flush or blush easily she states. She develops no pustules or pimples. She was seen by Dr. Zamora and topicals were attempted but the seem to irritate her skin and were not beneficial she states. There is no family history of this problem and and other family members. The patient has a history also of mixed connective tissue disease Physical examination reveals a pleasant 40-year-old woman who has today no facial findings but her cell phone photograph demonstrates marked malar erythema extending down from the nasal bridge at the time of the recent flare. It is consistent with rosacea. Assessment and plan: Rosacea with marked intermittent flush reaction 1. Advised patient to look for sulfites and avoid them in her cider 2. Avoid soaps on face and used months with use water as much as possible. Follow sensitive skin care precautions 3. Mentioned the National rosacea foundation website as an excellent source of information 4. Could consider a course of minocycline 50 mg p.o. nightly for a week then 1 p.o. twice daily for a month and a half trial. She like to hold off on this for now. Patient was previously on Plaquenil for mixed connective tissue disease and now has been discontinued. Should her facial redness continue to increase in frequency and severity, reinstitution of Plaquenil might be beneficial. 5. Also discussed the possibility of using beta-ronit to prevent her flush blush reaction. CC: Olinda Henderson APRN documented in this encounter Plan of Treatment Not on filedocumented as of this encounter Visit Diagnoses Diagnosis Rosacea documented in this encounter Care Teams Cargo And Ramp Services Manager Relationship Specialty Start Date End Date Olinda Henderson APRN PCP - General Internal Medicine 07/24/19 [address] [place] [address] documented as of this encounter
--- OUTSIDE RECORDS SUMMARY | 2022-05-15 02:30 | XMS_ITS | Encounter Summary ---
:1980 Author Organization [facility] [place] [address] Care Team Providers Name Role Phone Piper Hendersonyee Alfred APRN Primary Care Provider Encounter Details Date Type Department Care Team Description 08/17/2019 Telephone Allergy at [facility] Nya Coombs MD [facility] [place] [address] ALLERGY DEPT [phone] [place], [place] [address] (Wo rk) Social History Tobacco Use Types Packs/Day Years Used Date Former Smoker Cigarettes 0.5 Quit: 12/05/19 06 Smokeless Tobacco: Never Used Sex Assigned at Date Recorded Not on file documented as of this encounter Miscellaneous Notes Telephone Encounter - Nya Coombs MD - 08/17/2019 4:46 PM EST Reviewed normal labs over phone with the patient. She may try red meat. She reports intermittent urticaria about twice a month. She may first try antihistamine as needed. She will also try to note triggers when urticaria happens. I recommend she return in 2-3 months, sooner if needed. Telephone Encounter - Nya Coombs MD - 08/17/2019 4:46 PM EST ----- Message from Delbert Mckenzie LPN sent at 08/17/2019 3:13 PM EST ----- Please advise. Thanks. ----- Message ----- From: Minerva Quinones Sent: 08/17/2019 8:45 AM EST To: [facility] Allergy Nurse [phone]; please call back for lab results; she live far away and doesn't really want to come infor an appt; wants a call instead. documented in this encounter Plan of Treatment Not on filedocumented as of this encounter Visit Diagnoses Not on filedocumented in this encounter Care Teams Meter Installer Relationship Specialty Start Date End Date Olinda Henderson APRN PCP - General Internal Medicine 07/24/19 [address] [place] [address] documented as of this encounter
--- OUTSIDE RECORDS SUMMARY | 2022-05-15 02:30 | XMS_ITS | Encounter Summary ---
:1980 Author Organization [facility] [place] [address] Care Team Providers Name Role Phone Unavailable Primary Care Provider Unavailable Encounter Details Date Type Department Care Team Description 12/12/2013 Office Visit [facility] Isabel Oleary, [address] [place] [address] [phone] [place], [place] [address] (Wo rk) Social History Tobacco Use Types Packs/Day Years Used Date Never Assessed Sex Assigned at Date Recorded Not on file documented as of this encounter Plan of Treatment Not on filedocumented as of this encounter Visit Diagnoses Not on filedocumented in this encounter
--- OUTSIDE RECORDS SUMMARY | 2022-05-15 02:30 | XMS_ITS | Encounter Summary ---
:1980 Author Organization [facility] [place] [address] Care Team Providers Name Role Phone Olinda Henderson APRN Primary Care Provider Reason for Visit Reason Onset Date Comments Appointment 01/09/2021 Encounter Details Date Type Department Care Team Description 01/09/2021 Telephone Endocrinology at [facility] C [place] [address] Social History Tobacco Use Types Packs/Day Years Used Date Former Smoker Cigarettes 0.5 Quit: 12/05/19 06 Smokeless Tobacco: Never Used Alcohol Use Standard Drinks/Week Comments Not Currently 0 (1 standard drink = 0.6 oz pure alcoho l) Sex Assigned at Date Recorded Not on file documented as of this encounter Miscellaneous Notes Telephone Encounter - Rebecca Delcid I - 01/09/2021 1:48 PM EDT Needs to schedule a FUV wit Dr. Walton for 6-12 months from last visit documented in this encounter Plan of Treatment Not on filedocumented as of this encounter Visit Diagnoses Not on filedocumented in this encounter Care Teams Eyelet Operator Relationship Specialty Start Date End Date Olinda Henderson APRN PCP - General Internal Medicine 07/24/[place] [address] documented as of this encounter
--- OUTSIDE RECORDS SUMMARY | 2022-05-15 02:30 | XMS_ITS | Encounter Summary ---
:1980 Author Organization [facility] Address [address] [place] [address] Care Team Providers Name Role Phone Unknown, Provider Primary Care Provider Encounter Details Date Type Department Care Team Description 04/23/[address] [facility] Outr Resulting Lab, Pathology & Laboratory Provider [facility] [address] [place] [address] Social History Tobacco Use Types Packs/Day Years Used Date Never Smoker Smokeless Tobacco: Never Used Alcohol Use Standard Drinks/Week Comments Not Currently 0 (1 standard drink = 0.6 oz pure alcoho l) Education Answer Date Recorded What is the highest level of school Master's degree (e.g., M A, MS, 02/15/2020 you have completed or the highest Dick, MEd, STRIPER MACHINE, JARVIS) degree you have received? Sex Assigned [...] Name Priority Date/Time Associated Diagnosis Comme nts CALCIUM, IONIZED Routine 04/23/2022 15:50 EDT Res ults for this procedure are i n the results section. documented in this encounter Results (ABNORMAL) CALCIUM, IONIZED (04/23/2022 15:50 EDT) Calcium, Ionized 1.11 (L)Comment: 1.14 - 1.35 [facility] Testing performed mmol/L LABORATORY on heparinized SERVICES plasma. Results may be biased 5% lower than that of whole blood. Specimen Blood - Venous blood (substance) Performing Organization Address City/State/ZIP Code Phon e Number [facility] [address] [place] [address] SERVICES documented in this encounter Visit Diagnoses Not on filedocumented in this encounter Care Teams Vegetable Harvest Machine Operator Relationship Specialty Start Date End Date Unknown, Provider, PCP - General 04/07/16 documented as of this encounter
--- OUTSIDE RECORDS SUMMARY | 2022-05-15 02:31 | XMS_ITS | Encounter Summary ---
:[address] [facility] Address [address] [place] [address] Care Team Providers Name Role Phone Unknown, Provider Primary Care Provider Encounter Details Date Type Department Care Team Description 09/05/2020 Lab Requisition [facility] Outr Resulting Lab, Pathology & Laboratory Provider [facility] [address] [place] [address] Social History Tobacco Use Types Packs/Day Years Used Date Never Smoker Smokeless Tobacco: Never Used Alcohol Use Standard Drinks/Week Comments Not Currently 0 (1 standard drink = 0.6 oz pure alcoho l) Education Answer Date Recorded What is the highest level of school Master's degree (e.g., M A, MS, 02/15/2020 you have completed or the highest Dick, MEd, AUDIO VISUAL MANAGER, JARVIS) degree you have received? Sex Assigned [...] Name Priority Date/Time Associated Diagnosis Comme nts LYME AB Routine 09/05/2020 10:25 EST Results for this procedure are i n the results section . documented in this encounter Results LYME AB (09/05/2020 10:25 EST) Pathologist Sig nature Lyme Ab NegativeComment: New Negative [facility] 3rd generation assay LABORATORY SERVICES in use 12/27/2019 Specimen Blood - Venous blood (substance) Performing Organization Address City/State/ZIP Code Phon e Number [facility] [address] [place] [address] SERVICES documented in this encounter Visit Diagnoses Not on filedocumented in this encounter Care Teams Housing Management Officer Relationship Specialty Start Date End Date Unknown, Provider, PCP - General 04/07/16 documented as of this encounter
--- OUTSIDE RECORDS SUMMARY | 2022-05-15 02:31 | XMS_ITS | Encounter Summary ---
:1980 Author Organization [facility] Address [address] [place] [address] Care Team Providers Name Role Phone Unknown, Provider Primary Care Provider Encounter Details Date Type Department Care Team Description 03/10/[address] [facility] Outr Resulting Lab, Pathology & Laboratory Provider [facility] [address] [place] [address] Social History Tobacco Use Types Packs/Day Years Used Date Never Smoker Smokeless Tobacco: Never Used Alcohol Use Standard Drinks/Week Comments Not Currently 0 (1 standard drink = 0.6 oz pure alcoho l) Education Answer Date Recorded What is the highest level of school Master's degree (e.g., M A, MS, 02/15/2020 you have completed or the highest Dick, MEd, BISQUE TILE BURNER, JARVIS) degree you have received? Sex Assigned [...] Associated Diagnosis Comme nts T3 FREE Routine 03/10/2021 15:00 Results for this EDT procedure are i n the results section. TRANSFERRIN Routine 03/10/2021 15:00 Results for this EDT procedure are i n the results section. THYROID ANTIBODIES Routine 03/10/2021 15:00 Resul ts for this EDT procedure are i n the results section. documented in this encounter Results T3 FREE (03/10/2021 15:00 EDT) Pathologist Sig nature T3, Free 3.9 2.8 - 5.3 pg/mL [facility] SERVICES Specimen Blood - Venous blood (substance) Performing Organization Address [facility]/ZIP Code Phon e Number [facility] [address] [place] [address] SERVICES THYROID ANTIBODIES (03/10/2021 15:00 EDT) Pathologist Sig nature Anti-Thyroglobulin <15 <=60 U/mL [facility] SERVICES Thyroperoxidase Ab <28 <=60 U/mL [facility] SERVICES Specimen Blood - Venous blood (substance) Performing Organization Address [facility]/ZIP Code Phon e Number [facility] [address] [place] [address] SERVICES TRANSFERRIN (03/10/2021 15:00 EDT) Pathologist Sig nature Transferrin 257 201 - 352 mg/dL [facility] SERVICES Specimen Blood - Venous blood (substance) Performing Organization Address [facility]/ZIP [facility] Phon e Number [facility] [address] [place] [address] SERVICES documented in this encounter Visit Diagnoses Not on filedocumented in this encounter Care Teams Surgical Dental Assistant Relationship Specialty Start Date End Date Unknown, Provider, PCP - General 04/07/16 documented as of this encounter
--- OUTSIDE RECORDS SUMMARY | 2022-05-15 02:31 | XMS_ITS | Encounter Summary ---
:1980 Author Organization [facility] Address [address] [place] [address] Care Team Providers Name Role Phone Unknown, Provider Primary Care Provider Reason for Referral Consult (Routine) - Closed Specialty Diagnoses / Procedures Referred By Contact Refer red To Contact Diagnoses Low serum cortisol level Malaise and fatigue Tamia Stuart NP [address] [place] [address] Referral ID Status Reason Start Date Expiration Date Visits V isits Requested Authorized [id number] Closed Specialty 09/04/2020 1 1 Services Required Question Answer Reason for Request: Abnormal cortisol levels and abnormal T4 Practice Site (External Referral Only): [facility] Reason for Visit Reason Comments Follow-up Televideo for polyarthralgia , malaise and fatigue;[facility] my direct line for televideo chart prep. Encounter Details Date Type Department Care Team Description 09/03/2020 Telemedicine [facility] - Paco Stuart ser um cortisol level ([facility]) (Primary Dx); [facility] Rheumatology AUGUST Cantrell Polyarthralgia; [address] Positive COLTON (antinuclear antibody); [place] [address] [address] Malaise and fatigue; [phone] [place], [place] Facial rash [phone] Social History Tobacco Use Types Packs/Day Years Used Date Never Smoker Smokeless Tobacco: Never Used Alcohol Use Standard Drinks/Week Comments Not Currently 0 (1 standard drink = 0.6 oz pure alcoho l) Education Answer Date Recorded What is the highest level of school Master's degree (e.g., M Aubrie, , 02/15/2020 you have completed or the highest Dick, MEd, DEICER REPAIRER, JARVIS) degree you have received? Sex Assigned [...] making decisions? documented as of this encounter Ordered Prescriptions Prescription Sig Dispensed Refills Start Date End Date hydrOXYchloroQUINE Take 1 Tab by 90 Tab 3 09/03/2020 (PLAQUENIL) 200 mg mouth daily. tabletIndications: Polyarthralgia documented in this encounter Progress Notes Tamia Stuart, ZE - 09/03/2020 1245 EST [facility] Video Visit Today's visit was provided through telemedicine video conferencing: The location of the patient: Home The location of the provider: Office Verbal consent: The concept of ???Telemedicine?? has been described to the patient.Patient has been informed of theanticipated benefits and possible risks. Patient understands the information provided regarding telemedicine, has had the opportunity to ask questions about this information, and all questions have been answered to patient???s satisfaction. Patient consents for the use of telemedicine in his/her medical care and authorizes the transmission of any relevant medical information to providers and their staff involved in patient???s medical or mental health care. Verbal consent obtained by myself or auxiliary staff: yes. Subjective: Chief Complaint(s): Follow-up (Televideo for polyarthralgia, malaise and fatigue;[facility] my direct linefor televideo chart prep.) HPI: Known patient initially evaluated on 01/26/20 for symptoms of??life limiting??fatigue, polyarthralgias and intermittent facial rash??beginning January,.?? Other symptoms include shortness of breath, tired muscles and some generalized joint pain including her neck and shoulders and sometimes knees and elbows. ?? Difficult for her to get out of bed most mornings. ??Does not feel well rested after a night sleep. ?? Normally very active person enjoying hiking and gardening. ??Has 4 children ages 15, 6, 3 and 18 months.? Reported shortness of breath without wheezing. ??Feels more like her exercise tolerance has diminished. No described palpitations. Symptoms blossomed after her severe mastitis 2018 with resultant abscess. Thereafter, her symptoms of fatigue, intermittent facial rashes and joint pain began. Past history of intermittent Raynaud's since her teenage years. Grandmother with arthritis Has specific concerns about lupus as a diagnosis. ?? Labs at [facility] on 11/23/19 including CBC, ESR, CRP, CMP, TSH, IBRAHIMA, Lyme and RF all negative or within normal limits COLTON positive 1:80 homogenous pattern Vitamin B12 = 192 (193-986)?? Vitamin D = 24.2 ?? Labs performed on 01/26/20 at [facility]; Uric acid = 4.0 U/A negative for protein, blood or nitrites Parvovirus - IgM negative, IgG positive Thyroglobulin antibody negative C3 = 16, C4 = 78 ??(81-157) CCP negative PTH = 49 CK = 61 ?? EKG - within normal limits Prednisone responsive with improvement in symptoms Her lighting director ordered some bloodwork to include some hormone levels. Blood work drawn 05/23/20 prior to initiation of oral prednisone. Cortisol levels low across the board. FT3 = 1.9 (2.4-4.2) ?? INTERVAL HISTORY:??Hydroxychloroquine initiated after 06/24/2020 appointment. Denies any adverse side effects with use. Currently taking 200 mg once daily. Based on her body weight this would be the maximum dose allowed. Successfully weaned off oral prednisone several weeks ago. States that her symptoms remain as they were including fatigue, joint aches, intermittent facial flushing and rash. Endorses that the increase in her symptoms does not seem to be as significant now that she is takingthe hydroxychloroquine. I have reviewed patient's tobacco history: reports that she has never smoked. She has never used smokeless tobacco. I have reviewed current problem list and current medications. ROS: Review of Systems Constitutional: Positive for malaise/fatigue. Negative for fever. Eyes: Negative for pain. Respiratory: Negative for cough and shortness of breath. Cardiovascular: Negative for palpitations. Gastrointestinal: Negative for nausea and vomiting. Musculoskeletal: Positive for joint pain, myalgias and neck pain. Skin: Positive for rash. Objective: Examination: Home Vitals: There were no vitals taken for this visit. Pertinent exam findings: appears well, neck supple, non-labored breathing, no wheeze, no rash on visible skin and mood and affect appropriate Data reviewed with patient: most recent labs reviewed: cortisol levels Assessment & Plan: 1. Polyarthralgia Continue with hydroxychloroquine at current dose once daily. Refill for 3-month supply sent to her pharmacy. She was made aware that this medication may take 3 to 6 months for optimization. - hydrOXYchloroQUINE (PLAQUENIL) 200 mg tablet; Take 1 Tab by mouth daily. Dispense: 90 Tab; Refill:3 2. Low serum cortisol level ([facility]) Discussed potential benefit of endocrinology consultation given the results of her previous labs ordered by her lighting director. Again those alterations in cortisol levels were prior to taking any prednisone. 3. Positive COLTON (antinuclear antibody) Low positive COLTON with negative IBRAHIMA and double-stranded DNA. Minimally low C4 With ongoing facial rash, fatigue and myalgias and arthralgias. May be beneficial to draw lupus anticoagulant and additional blood work. We will send those lab orders to [facility] 4. Malaise and fatigue Continue with sleep hygiene and vitamin supplementation as well as healthy lifestyle choices that she has been utilizing already. Follow-up in 3 months for reevaluation. A total of 24 minutes was spent on this encounter on the day of this encounter. The following individuals and their role did participate in today's encounter visit: Provider: Tamia Stuart APRN Patient documented in this encounter Plan of Treatment Scheduled Referrals Name Type Priority Associated Order Schedule Diagnoses AMB CONS/FOLLOW UP Outpatient Referral Routine Low serum corti nawaf Ordered: ENDOCRINOLOGY level ([facility]) 09/04/2020 Malaise and fatigue documented as of this encounter Visit Diagnoses Diagnosis Low serum cortisol level - Primary Glucocorticoid deficiency Polyarthralgia Pain in joint, multiple sites Positive COLTON (antinuclear antibody) Other and unspecified nonspecific immuno logical findings Malaise and fatigue Other malaise and fatigue Facial rash Rash and other nonspecific skin eruption documented in this encounter Discontinued Medications Medication Sig Discontinue Reason Start Date End Date hydrOXYchloroQUINE Take 1 Tab by 06/24/2020 09/03/19 21 (PLAQUENIL) 200 mg mouth daily. tabletIndications: Polyarthralgia documented as of this encounter Care Teams Trench Digger Relationship Specialty Start Date End Date Unknown, Provider, PCP - General 04/07/16 documented as of this encounter
--- OUTSIDE RECORDS SUMMARY | 2022-05-15 02:31 | XMS_ITS | Encounter Summary ---
:1980 Author Organization [facility] Address [address] [place] [address] Care Team Providers Name Role Phone Unknown, Provider Primary Care Provider Encounter Details Date Type Department Care Team Description 10/15/2020 Lab Requisition [facility] Outr Resulting Lab, Pathology & Laboratory Provider [facility] [address] [place] [address] Social History Tobacco Use Types Packs/Day Years Used Date Never Smoker Smokeless Tobacco: Never Used Alcohol Use Standard Drinks/Week Comments Not Currently 0 (1 standard drink = 0.6 oz pure alcoho l) Education Answer Date Recorded What is the highest level of school Master's degree (e.g., M A, MS, 02/15/2020 you have completed or the highest Dick, MEd, HOME DEMONSTRATION AGENT, JARVIS) degree you have received? Sex [...] Name Priority Date/Time Associated Diagnosis Comme nts DHEA SULFATE Routine 10/15/2020 8:24 EDT Results for this procedure are i n the results section . documented in this encounter Results DHEA SULFATE (10/15/2020 8:24 EDT) Pathologist Sig nature DHEA Sulfate 166 75 - 410 ug/dL [facility] Specimen Blood - Venous blood (substance) Performing Organization Address City/State/ZIP Code Phon e Number [facility] [address] [place] [address] SERVICES documented in this encounter Visit Diagnoses Not on filedocumented in this encounter Care Teams Brush Clearing Laborer Relationship Specialty Start Date End Date Unknown, Provider, PCP - General 04/07/16 documented as of this encounter
--- OUTSIDE RECORDS SUMMARY | 2022-05-15 02:31 | XMS_ITS | Encounter Summary ---
:1980 Author Organization [facility] Address [address] [place] [id number] Care Team Providers Name Role Phone Unknown, Provider Primary Care Provider Reason for Visit Reason Onset Date Comments Other 09/10/2020 Encounter Details Date Type Department Care Team Description 09/10/2020 Telephone [facility] Tamia Feliciano NP Other Rheumatology [address] [facility] [address] [facility] [address] [place] [address] [place] [address] (Wo rk) Social History Tobacco Use Types Packs/Day Years Used Date Never Smoker Smokeless Tobacco: Never Used Alcohol Use Standard Drinks/Week Comments Not Currently 0 (1 standard drink = 0.6 oz pure alcoho l) Education Answer Date Recorded What is the highest level of school Master's degree (e.g., Per Alfred, , 02/15/2020 you have completed or the highest Dick, MEd, ASSEMBLER INSTALLER GENERAL, JARVIS) degree you have received? Sex Assigned [...] making decisions? documented as of this encounter Miscellaneous Notes Telephone Encounter - Laureano Carmona - 09/12/2020 0908 EST error documented in this encounter Plan of Treatment Not on filedocumented as of this encounter Visit Diagnoses Not on filedocumented in this encounter Care Teams Juvenile Justice Specialist Relationship Specialty Start Date End Date Unknown, Provider, PCP - General 04/07/16 documented as of this encounter
--- OUTSIDE RECORDS SUMMARY | 2022-05-15 02:31 | XMS_ITS | Encounter Summary ---
:1980 Author Organization [facility] Address [address] [place] [address] Care Team Providers Name Role Phone Unknown, Provider Primary Care Provider Encounter Details Date Type Department Care Team Description 10/15/2020 Lab Requisition [facility] Outr Resulting Lab, Pathology & Laboratory Provider [facility] [address] [place] [address] Social History Tobacco Use Types Packs/Day Years Used Date Never Smoker Smokeless Tobacco: Never Used Alcohol Use Standard Drinks/Week Comments Not Currently 0 (1 standard drink = 0.6 oz pure alcoho l) Education Answer Date Recorded What is the highest level of school Master's degree (e.g., M A, MS, 02/15/2020 you have completed or the highest Dick, MEd, THREAD SEPARATOR, JARVIS) degree you have received? Sex Assigned [...] Procedure Name Priority Date/Time Associated Comments Diagnosis SEX HORMONE BINDING Routine 10/15/2020 8:24 Resul ts for this GLOBULIN EDT procedure are i n the results section. PROLACTIN Routine 10/15/2020 8:24 Results for this EDT procedure are i n the results section. PROGESTERONE Routine 10/15/2020 8:24 Results for this EDT procedure are i n the results section. LH Routine 10/15/2020 8:24 Results for this EDT procedure are i n the results section. FSH Routine 10/15/2020 8:24 Results for this EDT procedure are i n the results section. CORTISOL Routine 10/15/2020 8:24 Results for this EDT procedure are i n the results section. documented in this encounter Results FSH (10/15/2020 8:24 EDT) Pathologist Sig nature FSH 6.6 See Note mIU/mL [facility] Specimen Blood - Venous blood (substance) Narrative [facility] - 10/15/2020 17:47 EDT NOTE: Female FSH Reference Ranges (>= 13 Menst ruating): PHYSIOLOGICAL STATUS ? REFE RENCE RANGE ? ---- Follicular (-12 to -4 days): ?? 2.5 - 1 0.2 mIU/mL Midcycle (-3 to +2 days): ?3.4 - 33.4 mIU/mL Luteal (+4 to +12 days): ? 1.5 - 9.1 mIU/mL Postmenopausal: ? 23.0 - 116.3 mIU/mL Reference Ranges for female patients <13 years old have not been established. Performing Organization Address City/State/ZIP Code Phon e Number [facility] [address] [place] [address] SERVICES PROLACTIN (10/15/2020 8:24 EDT) Prolactin 2.3 See Table [facility] Comment: ng/mL LABORATORY SERVICES NOTE: Female Reference Ranges: PHYSIOLOGICAL STATUS ?EXPECTED R MAYRA ? ---- Postmenopausal ?1.8 - 2 0.3 ng/mL ?9.7 - 208.5 ng/mL Non- ?2.8 - 29.2 ng/mL Reference Ranges for Prolact in in female patients <18 years old have not been established. Specimen Blood - Venous blood (substance) Performing Organization Address City/State/ZIP Code Phon e Number [facility] [address] [place] [address] SERVICES PROGESTERONE (10/15/2020 8:24 EDT) [facility] Progesterone 16.2 See Table [facility] Comment: ng/mL LABORATORY Female Reference Ranges: SERVICES PHYSIOLOGICAL STATUS ?EXPECTED RANGE ? >= 18 Yrs Menstruating: (Non-) Follicular Phase: ? <= 1.4 ng/mL Luteal Phase: ? 3.3 - 25.6 ng/mL Mid-luteal Phase: ? 4.4 - 28.0 ng/mL Postmenopausal: ? <= 0.7 ng/mL : -------- First Trimester: ?11.2 - 90.0 ng/mL Second Trimester: ? 25.6 - 89.4 ng/mL Third Trimester: ?48.4 - 422.5ng/mL For ectopic , consult a pathologist Reference Ranges for female patients <18 years o ld have not been established. Specimen Blood - Venous blood (substance) Performing Organization Address [facility] Phon e Number [facility] [address] [place] [address] SERVICES CORTISOL (10/15/2020 8:24 EDT) Cortisol 12 See Note ug/dL [facility] Comment: LABORATORY SERVICES NOTE: Reference Ranges (from [facility]): Collected Before 10:00 AM: ??4 - 23 ug/dL Collected After 5:00 PM: ?2 - 14 ug/dL The results of this assay ca n be falsely elevated due to the consumption of Biotin. Specimen Blood - Venous blood (substance) Performing Organization Address [facility] Phon e Number [facility] [address] [place] [address] SERVICES SEX HORMONE BINDING GLOBULIN (10/15/2020 8:24 EDT) Sex Hormone Bnd 115.5 See Note [facility] Glob Comment: nmol/L LABORATORY NOTE: SERVICES ---- Reference Ranges for Females Pre-Menopausal: ?>10.8 nmol/L Post-Menopausal: ?? 23.2 - 159.1 nmol/L Reference ranges for Sex Hor duane Binding Globulin in female patients <21 years old have not been established. Specimen Blood - Venous blood (substance) Narrative [facility] - 10/15/2020 17:52 EDT The results of this assay can be falsely lowered due to the consumption of Biotin. Performing Organization Address [facility] Phon e Number [facility] [address] [place] [address] SERVICES LH (10/15/2020 8:24 EDT) Luteinizing Hormone 4.1 See Note [facility] Comment: mIU/mL CENTER LABORATORY NOTE: SERVICES Female Reference Ranges: Pre-Pubertal: ?<6.0 mIU/mL Menstruating: Follicular Phase(-12 to -4 days: ??1.9 - 12.5 mIU/mL Midcycle(-3 to +2 days): ?8.7 - 76.3 mIU/ mL Luteal Phase(+4 to +12 days): ? 0.5 - 16.9 mIU/mL Post Menopausal: 15.9 - 54.0 mIU/mL Specimen Blood - Venous blood (substance) Performing Organization Address City/State/ZIP Code Phon e Number [facility] [address] [place] [address] SERVICES documented in this encounter Visit Diagnoses Not on filedocumented in this encounter Care Teams Spring Coiler Hand Relationship Specialty Start Date End Date Unknown, Provider, PCP - General 04/07/16 documented as of this encounter
--- OUTSIDE RECORDS SUMMARY | 2022-05-15 02:31 | XMS_ITS | Encounter Summary ---
:1980 Author Organization [facility] Address [address] [place] [address] Care Team Providers Name Role Phone Unknown, Provider Primary Care Provider Encounter Details Date Type Department Care Team Description 01/26/2020 Travel Social History Tobacco Use Types Packs/Day Years Used Date Never Smoker Smokeless Tobacco: Never Used Alcohol Use Standard Drinks/Week Comments Not Currently 0 (1 standard drink = 0.6 oz pure alcoho l) Sex Assigned at Date Recorded Not on file COVID-19 Exposure Response Date Recorded In the last month, have you been in contact with No / Unsure 01/26/2020 8:38 EDT someone who was confirmed or suspected to have Coronavirus / COVID-19? documented as of this encounter Plan of Treatment Not on filedocumented as of this encounter Visit Diagnoses Not on filedocumented in this encounter Care Teams Weed Inspector Relationship Specialty Start Date End Date Unknown, Provider, PCP - General 04/07/16 documented as of this encounter
--- OUTSIDE RECORDS SUMMARY | 2022-05-15 02:31 | XMS_ITS | Encounter Summary ---
:1980 Author Organization [facility] Address [address] [place] [address] Care Team Providers Name Role Phone Unknown, Provider Primary Care Provider Encounter Details Date Type Department Care Team Description 01/26/2020 Lab Requisition [facility] Outr Resulting Lab, Pathology & Laboratory Provider [facility] [address] [place] [address] Social History Tobacco Use Types [...] Associated Diagnosis Comme nts HOLD SST Today 01/26/2020 10:10 Results for this EDT procedure are i n the results section. PTH INTACT Today 01/26/2020 10:10 Results for this EDT procedure are i n the results section. ANTI THYROGLOBULIN Today 01/26/2020 10:10 Resul ts for this EDT procedure are i n the results section. C3 COMPLEMENT Today 01/26/2020 10:10 Results fo r this EDT procedure are i n the results section. C4 COMPLEMENT Today 01/26/2020 10:10 Results fo r this EDT procedure are i n the results section. documented in this encounter Results HOLD SST (01/26/2020 10:10 EDT) Pathologist Sig nature Hold Hold [facility] SERVICES Specimen Blood - Venous blood (substance) Performing Organization Address [facility]/ZIP Code Phon e Number [facility] [address] [place] [address] SERVICES C4 COMPLEMENT (01/26/2020 10:10 EDT) Pathologist Sig nature C4 Complement 16 13 - 39 mg/dL [facility] ORY SERVICES Specimen Blood - Venous blood (substance) Performing Organization Address [facility]/ZIP Code Phon e Number [facility] [address] [place] [address] SERVICES (ABNORMAL) C3 COMPLEMENT (01/26/2020 10:10 EDT) Pathologist Sig nature C3 Complement 78 (L) 81 - 157 mg/dL [facility] SERVICES Specimen Blood - Venous blood (substance) Performing Organization Address [facility]/ZIP [facility] Phon e Number [facility] [address] [place] [address] SERVICES ANTI THYROGLOBULIN (01/26/2020 10:10 EDT) Pathologist Sig nature Anti-Thyroglobulin 17 <=60 U/mL [facility] SERVICES Specimen Blood - Venous blood (substance) Performing Organization Address [facility]/ZIP Code Phon e Number [facility] [address] [place] [address] SERVICES PTH INTACT (01/26/2020 10:10 EDT) Pathologist Sig nature Intact PTH 49 19 - 88 pg/mL [facility] RY SERVICES Specimen Blood - Venous blood (substance) Performing Organization Address [facility]/ZIP [facility] Phon e Number [facility] [address] [place] [address] SERVICES documented in this encounter Visit Diagnoses Not on filedocumented in this encounter Care Teams Leasing Representative Relationship Specialty Start Date End Date Unknown, Provider, PCP - General 04/07/16 documented as of this encounter
--- OUTSIDE RECORDS SUMMARY | 2022-05-15 02:31 | XMS_ITS | Encounter Summary ---
:1980 Author Organization [facility] Address [address] [place] [address] Care Team Providers Name Role Phone Unknown, Provider Primary Care Provider Reason for Visit Reason Comments Follow-up Feels the same as last visit .Pain is in elbows,neck,shooulders. Encounter Details Date Type Department Care Team Description 02/21/2020 Telemedicine [facility] - Rachael Stuart hralgia (Primary Dx); [facility] Rheumatology AUGUST Cantrell Malaise and fatigue [address] [place] [address] [facility], [address] [place] [address] Social History Tobacco Use Types Packs/Day Years Used Date Never Smoker Smokeless Tobacco: Never Used Alcohol Use Standard Drinks/Week Comments Not Currently 0 (1 standard drink = 0.6 oz pure alcoho l) Education Answer Date Recorded What is the highest level of school Master's degree (e.g., Per Alfred, , 02/15/2020 you have completed or the highest Dick, MEd, TELEVISION NEWSCAST DIRECTOR, JARVIS) degree you have received? Sex Assigned at Date Recorded Not on file COVID-19 Exposure Response Date Recorded In the last month, have you been in contact with No / Unsure 02/21/2020 9:00 EDT someone who was confirmed or suspected to have Coronavirus / COVID-19? documented as of this encounter Last Filed Vital Signs Vital Sign Reading Time Taken Comments Blood Pressure - - Pulse - - Temperature - - Respiratory Rate - - Oxygen Saturation - - Inhaled Oxygen Concentration - - Weight 49.9 kg (110 lb) 02/21/2020 0901 EDT Height - - Body Mass Index - - documented in this encounter Ordered Prescriptions Prescription Sig Dispensed Refills Start Date End Date predniSONE (DELTASONE) 1 mg Take 2.5 Tabs by 20 Tab 0 06/24/2020 tabletIndications: mouth daily. Polyarthralgia predniSONE (DELTASONE) 5 mg Take 1 Tab by 20 Tab 0 02/2006/25/2020 tabletIndications: mouth daily. Polyarthralgia documented in this encounter Progress Notes Tamia Stuart APRN - 02/21/2020 1345 EDT [facility] Video Visit Today's visit was provided through telemedicine video conferencing: The location of the patient: Home The location of the provider: Clinic Exam Room Verbal consent: The concept of ???Telemedicine?? has [...] auxiliary staff: yes. Subjective: Chief Complaint(s): Follow-up (Feels the same as last visit.Pain is in elbows,neck,shooulders.) HPI: 39-year-old woman initially evaluated on 01/26/20 for symptoms of life limiting fatigue beginning January,. Also has history of 3-4 episodes of intermittent rash of the face and upper arms. Denies any historyeither personally or family of psoriasis. Other symptoms include shortness of breath, tired muscles and some generalized joint pain including her neck and shoulders and sometimes knees and elbows. Difficult for her to get out of bed most mornings. Does not feel well rested after a night sleep. Normally very active person enjoying hiking and gardening. Has 4 children ages 15, 6, 3 and 18 months. 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 Likens the fatigue and exhaustion to similar feelings during 1st trimester of but is not . The neck, shoulder and muscle stiffness lessens after a couple of hours but the fatigue persists. If she pushes herself, will have worsening fatigue for 2-3 days thereafter. The shortness of breath is without wheezing. Feels more like her exercise tolerance has diminished. No described palpitations. Had mastitis last year but no longer breast feeding. History of migraines with one last night extending into this morning. Previously prescribed a medication for migraines which caused significant side effects and discontinued use after 1st administration. Past history of intermittent Raynaud's since her teenage years. Grandmother with arthritis Has specific concerns about lupus as a diagnosis. ?? Labs at [facility] on 11/23/19 including CBC, ESR, CRP, CMP, TSH, IBRAHIMA, Lyme and RF all negative or within normal limits COLTON positive 1:80 homogenous pattern Vitamin B12 = 192 (193-986) Vitamin D = 24.2 INTERVAL HISTORY: Nothing new in regards to symptoms. Continues to report ongoing fatigue. Raynaud'sis longstanding and primarily seasonal but does continue to have symptoms if in the refrigeration section of the grocery store. Stiff in the morning with sore joints. Difficult to get out of bed. After she is up and about, feelsa bit better and then by mid-day exhausted. On a good sleep schedule. Taking vitamins to boost general well being. Eats well balanced meals. No use of caffeine. Relates that symptoms blossomed after her severe mastitis a year ago with resultant abscess. Thereafter, her symptoms of fatigue, intermittent facial rashes and joint pain began. Additional labs performed on 01/26/20 at [facility]; Uric acid = 4.0 U/A negative for protein, blood or nitrites Parvovirus - IgM negative, IgG positive Thyroglobulin antibody negative C3 = 16, C4 = 78 (81-157) CCP negative PTH = 49 CK = 61 EKG - within normal limits I have reviewed patient's tobacco history: reports that she has never smoked. She has never used smokeless tobacco. I have reviewed current problem list and current medications. ROS: Review of Systems Constitutional: Positive for malaise/fatigue. Negative for fever. Respiratory: Negative for cough. Cardiovascular: Negative for chest pain. Gastrointestinal: Negative for nausea and vomiting. Musculoskeletal: Positive for joint pain. Skin: Negative for rash. Objective: Examination: Home Vitals: Wt 49.9 kg (110 lb) Pertinent exam findings: appears well, neck supple, non-labored breathing, no rash on visible skin and mood and affect appropriate Data reviewed with patient: most recent labs reviewed and most recent imaging reviewed Assessment & Plan: 1. Polyarthralgia Rheumatologic work up blood work negative. Differentials include post-viral symptoms related to severe mastitis a year ago with fatigue and joint pain ongoing. Discussed potential benefit of trial of low dose prednisone for the next week. Instructed to call with update of symptoms in 1 week and will decide thereafter to either adjust dose or discontinue. - predniSONE (DELTASONE) 5 mg tablet; Take 1 Tab by mouth daily. Dispense: 20 Tab; Refill: 0 - predniSONE (DELTASONE) 1 mg tablet; Take 2.5 Tabs by mouth daily. Dispense: 20 Tab; Refill: 0 2. Malaise and fatigue Continue with previous sleep schedule and activity modification as before. Encouraged continuation of supplements, particularly correcting low vitamin D level. A total of 26 minutes was spent on this encounter on the day of this encounter. The following individuals and their role did participate in today's encounter visit: Provider: Tamia Stuart APRN Patient documented in this encounter Plan of Treatment Not on filedocumented as of this encounter Visit Diagnoses Diagnosis Polyarthralgia - Primary Pain in joint, multiple sites Malaise and fatigue Other malaise and fatigue documented in this encounter Care Teams Baler Relationship Specialty Start Date End Date Unknown, Provider, PCP - General 04/07/16 documented as of this encounter
--- OUTSIDE RECORDS SUMMARY | 2022-05-15 02:31 | XMS_ITS | Encounter Summary ---
:1980 Author Organization [facility] Address [address] [place] [address] Care Team Providers Name Role Phone Unknown, Provider Primary Care Provider Encounter Details Date Type Department Care Team Description 12/31/2020 Lab Requisition [facility] Outr Resulting Lab, Pathology & Laboratory Provider [facility] [address] [place] [address] Social History Tobacco Use Types Packs/Day Years Used Date Never Smoker Smokeless Tobacco: Never Used Alcohol Use Standard Drinks/Week Comments Not Currently 0 (1 standard drink = 0.6 oz pure alcoho l) Education Answer Date Recorded What is the highest level of school Master's degree (e.g., M A, MS, 02/15/2020 you have completed or the highest Dick, MEd, SENIOR MECHANICAL TECHNICIAN, JARVIS) degree you have received? Sex Assigned [...] Associated Diagnosis Comme nts T3 FREE Routine 12/31/2020 12:31 Results for this EDT procedure are i n the results section. THYROID ANTIBODIES Routine 12/31/2020 12:31 Resul ts for this EDT procedure are i n the results section. documented in this encounter Results T3 FREE (12/31/2020 12:31 EDT) Pathologist Sig nature T3, Free 5.0 2.8 - 5.3 pg/mL [facility] Specimen Blood - Venous blood (substance) Performing Organization Address City/[facility]/ZIP Code Phon e Number [facility] [address] [place] [address] SERVICES THYROID ANTIBODIES (12/31/2020 12:31 EDT) Pathologist Sig nature Anti-Thyroglobulin <15 <=60 U/mL [facility] SERVICES Thyroperoxidase Ab <28 <=60 U/mL [facility] SERVICES Specimen Blood - Venous blood (substance) Performing Organization Address City/[facility]/ZIP Code Phon e Number [facility] [address] [place] [address] SERVICES documented in this encounter Visit Diagnoses Not on filedocumented in this encounter Care Teams Airport Operations Supervisor Relationship Specialty Start Date End Date Unknown, Provider, PCP - General 04/07/16 documented as of this encounter
--- OUTSIDE RECORDS SUMMARY | 2022-05-15 02:31 | XMS_ITS | Encounter Summary ---
:[address] [facility] Address [address] [place] [address] Care Team Providers Name Role Phone Unknown, Provider Primary Care Provider Encounter Details Date Type Department Care Team Description 09/01/2021 Lab Requisition [facility] Outr Resulting Lab, Pathology & Laboratory Provider [facility] [address] [place] [address] Social History Tobacco Use Types Packs/Day Years Used Date Never Smoker Smokeless Tobacco: Never Used Alcohol Use Standard Drinks/Week Comments Not Currently 0 (1 standard drink = 0.6 oz pure alcoho l) Education Answer Date Recorded What is the highest level of school Master's degree (e.g., M A, MS, 02/15/2020 you have completed or the highest Dick, MEd, MEDICAL BILLING SUPERVISOR, JARVIS) degree you have received? Sex Assigned [...] Associated Diagnosis Comme nts T3 FREE Routine 09/01/2021 12:32 Results for this EST procedure are i n the results section. THYROID ANTIBODIES Routine 09/01/2021 12:32 Resul ts for this EST procedure are i n the results section. documented in this encounter Results (ABNORMAL) T3 FREE (09/01/2021 12:32 EST) Pathologist Sig nature T3, Free 2.4 (L) 2.8 - 5.3 pg/mL [facility] Specimen Blood - Venous blood (substance) Performing Organization Address City/State/ZIP Code Phon e Number [facility] [address] [place] [address] SERVICES THYROID ANTIBODIES (09/01/2021 12:32 EST) Pathologist Sig nature Anti-Thyroglobulin <15 <=60 U/mL [facility] SERVICES Thyroperoxidase Ab <28 <=60 U/mL [facility] Specimen Blood - Venous blood (substance) Performing Organization Address City/State/ZIP Code Phon e Number [facility] [address] [place] [address] SERVICES documented in this encounter Visit Diagnoses Not on filedocumented in this encounter Care Teams Electroplating Worker Relationship Specialty Start Date End Date Unknown, Provider, PCP - General 04/07/16 documented as of this encounter
--- OUTSIDE RECORDS SUMMARY | 2022-05-15 02:31 | XMS_ITS | Encounter Summary ---
:1980 Author Organization [facility] Address [address] [place] [address] Care Team Providers Name Role Phone Unknown, Provider Primary Care Provider Encounter Details Date Type Department Care Team Description 12/20/2019 Lab Requisition [facility] Outr Resulting Lab, Pathology & Laboratory Provider [facility] [address] [place] [address] Social History Tobacco Use Types Packs/Day Years Used Date Never Assessed Sex Assigned at Date Recorded Not on file documented as of this encounter Plan of Treatment Not on filedocumented as of this encounter Procedures Procedure Name Priority Date/Time Associated Comments Diagnosis EXTRACTABLE NUCLEAR Routine 12/20/2019 14:04 Resu lts for this ANTIGEN PANEL EDT procedure are in the results section. documented in this encounter Results EXTRACTABLE NUCLEAR ANTIGEN PANEL (12/20/2019 14:04 EDT) SSA Antibody 1.0 <20.0 Units [facility] Comment: LABORATORY SERVICES ? Negative: <20.0 Units ? Weak Positive: 20.0 - 39.9 Units ? Moderate Positive: 40.0 - 80.0 Unit s ? Strong Positive: >80.0 Units Results were obtained with t HersA Lite SS-A ADELINA. ??SS-A values obtained with different manufacturers' assay methods may not be used interchangeably. ??The magnitude of the reported IgG levels cannot be correlated to an endpoint titer. SSB Antibody 1.5 <20.0 Units [facility] Comment: LABORATORY ? Negative: <20.0 Units SERVICES ? Weak Positive: 20.0 - 39.9 Units ? Moderate Positive: 40.0 - 80.0 Unit s ? Strong Positive: >80.0 Units Results were obtained with RevoLazeA Seemagee SS-B ADELINA. ??SS-B values obtained with different manufacturers' assay methods may not be used interchangeably. ??The magnitude of the reported IgG levels cannot be correlated to an endpoint titer. SM (Canchola) 1.3 <20.0 Units [facility] Antibody Comment: LABORATORY ? Negative: <20.0 Units SERVICES ? Weak Positive: 20.0 - 39.9 Units ? Moderate Positive: 40.0 - 80.0 Unit s ? Strong Positive: >80.0 Units Results were obtained with RevoLazeA Lite Sm ADELINA. ??Sm values obtained with different manufacturers' assay methods may not be used interchangeably. ??The magnitude of the reported IgG levels cannot be correlated to an endpoint titer. ELECTRICAL PRODUCTS ENGINEER Antibody 1.7 <20.0 Units [facility] Comment: LABORATORY SERVICES ? Negative: <20.0 Units ? Weak Positive: 20.0 - 39.9 Units ? Moderate Positive: 40.0 - 80.0 Unit s ? Strong Positive: >80.0 Units Results were obtained with Taskhero.coma Lite ELECTRICAL PRODUCTS ENGINEER ADELINA. ELECTRICAL PRODUCTS ENGINEER values obtained with different general production laborer's assay methods may not be used interchangeaby. ??The magnitude of the reported IgG levels cannot be be correlated to an endpoint titer. A positive result in the Rommel eGifter Lite ELECTRICAL PRODUCTS ENGINEER ADELINA indicates the presence of antibodies reactive with the ELECTRICAL PRODUCTS ENGINEER/Sm complex but cannot distinguish between anti- Sm and anti-ELECTRICAL PRODUCTS ENGINEER activity. Specimen Blood - Venous blood (substance) Performing Organization Address City/State/ZIP Code Phon e Number [facility]ORY [address] [place] [address] SERVICES documented in this encounter Visit Diagnoses Not on filedocumented in this encounter Care Teams User Interface Designer Relationship Specialty Start Date End Date Unknown, Provider, PCP - General 04/07/16 documented as of this encounter
--- OUTSIDE RECORDS SUMMARY | 2022-05-15 02:31 | XMS_ITS | Encounter Summary ---
:[address] [facility] Address [address] [place] [address] Care Team Providers Name Role Phone Unknown, Provider Primary Care Provider Encounter Details Date Type Department Care Team Description 05/23/2021 Lab Requisition [facility] Outr Resulting Lab, Pathology & Laboratory Provider [facility] [address] [place] [address] Social History Tobacco Use Types Packs/Day Years Used Date Never Smoker Smokeless Tobacco: Never Used Alcohol Use Standard Drinks/Week Comments Not Currently 0 (1 standard drink = 0.6 oz pure alcoho l) Education Answer Date Recorded What is the highest level of school Master's degree (e.g., M A, MS, 02/15/2020 you have completed or the highest Dick, MEd, ONCOLOGY NURSE NAVIGATOR, JARVIS) degree you have received? Sex Assigned [...] Associated Diagnosis Comme nts T3 FREE Routine 05/23/2021 8:21 EDT Results for this procedure are i n the results section. THYROID ANTIBODIES Routine 05/23/2021 8:21 EDT Re sults for this procedure are i n the results section. documented in this encounter Results (ABNORMAL) T3 FREE (05/23/2021 8:21 EDT) Pathologist Sig nature T3, Free 2.7 (L) 2.8 - 5.3 pg/mL [facility]OR[facility] TORY SERVICES Specimen Blood - Venous blood (substance) Performing Organization Address City/State/ZIP Code Phon e Number [facility] [address] [place] [address] SERVICES THYROID ANTIBODIES (05/23/2021 8:21 EDT) Pathologist Sig nature Anti-Thyroglobulin <15 <=60 U/mL [facility] LABORATORY SERVICES Thyroperoxidase Ab <28 <=60 U/mL [facility] LABORATORY SERVICES Specimen Blood - Venous blood (substance) Performing Organization Address City/[facility]/ZIP Code Phon e Number [facility] [address] [place] [address] SERVICES documented in this encounter Visit Diagnoses Not on filedocumented in this encounter Care Teams Infantryman Relationship Specialty Start Date End Date Unknown, Provider, PCP - General 04/07/16 documented as of this encounter
--- OUTSIDE RECORDS SUMMARY | 2022-05-15 02:31 | XMS_ITS | Encounter Summary ---
:1980 Author Organization [facility] Address [address] [place] [address] Care Team Providers Name Role Phone Unknown, Provider Primary Care Provider Reason for Visit Reason Comments New Patient Visit Pt reports aches and pain fo r aabout 6 months.Stiffness ini neck and shoulders .Today has a m igraine which is worse than the aches. Encounter Details Date Type Department Care Team Description 01/26/2020 Office Visit [facility] - Narciso, Malaise and fatigue (Primary Dx); [facility] Rheumatology AUGUST Cantrell Shortness of breath; [address] Polyarthralgia; [place] [address] [address] Myalgia; [phone] [place], [place] Positive COLTON (a ntinuclear antibody); [id number] Low vitamin D level Social History Tobacco Use Types Packs/Day Years [...] - - Weight 49.9 kg (110 lb) 01/26/2020 0841 EDT Height - - Body Mass Index - - documented in this encounter Patient Instructions Patient InstructionsSylvester, Tamia, SALES & SERVICE ASSOCIATE - 01/26/2020 8:45 EDT Additional labs to be drawn today along with urinalysis Orders to be sent to [facility] to get a chest x-ray and EKG to look for any cardiac causes of fatigue Continue to be active but avoiding too much exertion/activity Follow up with a video visit to review additional labs along with chest x-ray and EKG documented in this encounter Progress Notes Tamia Stuart APRN - 01/26/2020 0845 EDT [facility] Rheumatology Chief Complaint Patient presents with ??? New Patient Visit Pt reports aches and pain for aabout 6 months.Stiffness ini neck and shoulders .Today has a migraine which is worse than the aches. HPI: 39-year-old woman here today for evaluation at the request of Olinda Henderson APRN. Patient endorses that she had onset of life limiting fatigue beginning January,. Seems to be worsening in the last several months. Also has history of 3-4 episodes of intermittent rash of the face and upper arms. Denies any history either personally or family of psoriasis. Other symptoms [...] 6, 3 and 18 months. 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 No described palpitations Had mastitis last year but no longer breast feeding. History of migraines with one last night extending into this morning. Previously prescribed a medication for migraines which caused significant side effects and discontinued use after 1st administration. Past history of intermittent Raynaud's since her teenage years. Grandmother with arthritis Has specific concerns about lupus as a diagnosis. Labs at [facility] on 11/23/19 including CBC, ESR, CRP, CMP, TSH, IBRAHIMA, Lyme and RF all negative or within normal limits COLTON positive 1:80 homogenous pattern Vitamin B12 = 192 ([phone]) Vitamin D = 24.2 Current Outpatient Medications: ibuprofen (MOTRIN) 200 mg tablet No current facility-administered medications for this visit. Allergies include: Patient has no known allergies. History reviewed. No pertinent past medical history. Family History Problem Relation Age of Onset ??? Heart Disease Mother ??? Cancer Father Social History: Social History Tobacco Use ??? Smoking status: Never Smoker ??? Smokeless tobacco: Never Used Substance Use Topics ??? Alcohol use: Not Currently ??? Drug use: Never Review of Systems: 13 point ROS was done with the patient. See scanned document for details. Pertinent positives and negatives are noted in the HPI. Physical Examination: BP 108/60 Wt 49.9 kg (110 lb) EYES: Conjunctivae not injected, PERRLA ENT: No oral ulcers, dentition is good. NECK: Normal extension and lateral rotation without pain. NO lymphadenopathy. Mild tenderness upper trapezius bilaterally. CHEST: Clear to auscultation bilaterally. CARDIOVASCULAR: Regular rate and rhythm. No murmur. No peripheral edema. ABDOMEN: Soft, non tender. No hepatosplenomegaly. SKIN: No rash on arms, legs, trunk. No nail pitting. No dilated capillary loops in the nail beds. NEURO: Strength 5/5. Sensation intact to light touch. Reflexes 2+ and equal bilaterally upper and lower extremities. MUSCULOSKELETAL EXAM: Ambulates with nonantalgic gait. Normal resting posture. Well-preserved cervical spine range of motion all planes. Bilateral shoulder motion well-preserved along with strength to manual muscle testing of large and small muscle groups. Elbow motion intact in flexion extension. No erythema, warmth. Negative Tinel's at the elbows. No tenderness on exam today but right elbow lateralepicondyle will be the site of some soreness upon awakening. Negative straight leg raise for radiculopathy. No SI joint pain with palpation. She has some mild tenderness right paraspinals midthoracic region without palpable spasm. Low-grade lumbosacral soreness bilaterally with active spine extension.Able to heel walk and toe walk without difficulty. No hip motion loss. Knees without effusion, erythema or discrete joint line tenderness. Well-preserved stability of all ligaments. No pain with patella grind. No calf tenderness or swelling. Bilateral ankle joints without swelling erythema or tenderness. She does have some bilateral soreness with MTP squeeze test bilaterally. No appreciable erythema, warmth or synovitis. No Achilles or calcaneal soreness with palpation. Labs: Lab Requisition on 12/20/2019 Component Date Value ??? SSA Antibody 12/20/2019 1.0 ??? SSB Antibody 12/20/2019 1.5 ??? SM (Canchola) Antibody 12/20/2019 1.3 ??? PRODUCT SAFETY EXPERT Antibody 12/20/2019 1.7 Lab Requisition on 11/23/2019 Component Date Value ??? COLTON Interpretation 11/23/2019 Positive* ??? COLTON Titer and Pattern 1 11/23/2019 1:80 Homogeneous ? ? Rheumatoid Factor 11/23/2019 <8.6 ??? Lyme Ab 11/23/2019 Negative ??? Hold 11/23/2019 Hold ??? Hold 11/23/2019 Hold Diagnosis / Assessment: Problem List Items Addressed This Visit Other Malaise and fatigue - Primary Relevant Orders PARVOVIRUS B19 AB, IGG, IGM, S ANTI THYROGLOBULIN CK (Completed) URIC ACID (Completed) URINALYSIS/COMPLETE - [facility] (Completed) URINE CULTURE IF POSITIVE (Completed) Other Visit Diagnoses Shortness of breath Relevant Orders XR CHEST 2 VIEWS EKG 12-LEAD Polyarthralgia Relevant Orders CCP ANTIBODIES PARVOVIRUS B19 AB, IGG, IGM, S URIC ACID Myalgia Relevant Orders CK Positive COLTON (antinuclear antibody) Relevant Orders CCP ANTIBODIES URINE CHEMICAL (DIP) & SEDIMENT (MICRO) WITH REFLEX TO CULTURE ANTI THYROGLOBULIN C3 COMPLEMENT C4 COMPLEMENT Low vitamin D level Relevant Orders PTH INTACT Relatively young patient with life limiting fatigue, mildly positive COLTON and specific concerns aboutSLE as a diagnosis. Recommendations/Evaluation: Recommend additional blood work including complement levels as well as CCP and parvovirus given her exposure to young children. Continue with supplemental vitamin D Monitor symptoms of joint pain and swelling. Continue to participate in activities to tolerance. Chest x-ray and EKG ordered for specific complaints of shortness of breath and decrease in physical stamina in an otherwise healthy and physically fit patient. Follow up with video visit to review additional labs and diagnostic testing. RAFAEL Pena 01/26/2020 10:55 documented in this encounter Plan of Treatment Scheduled Orders Name Type Priority Associated Diagnoses Order S chedule EKG 12-LEAD ECG Routine Shortness of breath Ordered: 01/26/2020 documented as of this encounter Procedures Procedure Name Priority Date/Time Associated Comments Diagnosis CYCLIC CITRULLINATED Routine 01/26/2020 10:10 Malaise and fati hoda Results for this PEPTIDE EDT procedure are i n the results section. URINALYSIS/COMPLETE - Routine 01/26/2020 10:10 Malaise and fat igue Results for this [facility] EDT procedure are i n the results section. THYROGLOBULIN AB Routine 01/26/2020 10:10 Malaise and fatigue Results for this EDT procedure are i n the results section. URINE CULTURE IF Routine 01/26/2020 10:10 Malaise and fatigue Results for this POSITIVE EDT procedure are i n the results section. PTH INTACT Routine 01/26/2020 10:10 Malaise and fatigue Resu lts for this EDT procedure are i n the results section. C3 COMPLEMENT Routine 01/26/2020 10:10 Malaise and fatigue Res ults for this EDT procedure are i n the results section. C4 COMPLEMENT Routine 01/26/2020 10:10 Malaise and fatigue Res ults for this EDT procedure are i n the results section. URIC ACID Routine 01/26/2020 10:10 Malaise and fatigue Resu lts for this EDT procedure are i n the results section. CK Routine 01/26/2020 10:10 Malaise and fatigue Resu lts for this EDT procedure are i n the results section. PARVOVIRUS B19 AB, Routine 01/26/2020 10:09 Malaise and fatigu e Results for this IGG, IGM, S EDT procedure are i n the results section. documented in this encounter Results PTH INTACT (01/26/2020 10:10 EDT) PTH INTACT (ICMA) 49 19 - 88 pg/mL [facility] Comment: [facility] Test performed or referred by [facility] [address] [place] [address] Specimen Performing Organization Address City/[facility]/ZIP Code Phon e Number [facility] [address] [place] [address] CYCLIC CITRULLINATED PEPTIDE - [facility] (01/26/2020 10:10 EDT) Cyclic Citrullinated <15.6 () U [facility] Peptide Ab, S Comment: [facility] REFERENCE VALUE ------ <20.0 (Negative) Test Performed by: [facility] [address] [place] [address] Machine Etcher: Jerry Reyez M.D. Ph.D.; CLIA# [id number] *CP = Citrullinated Peptide Specimen Performing Organization Address [facility] Code Phon e Number [facility] [address] [place] [address] C4 COMPLEMENT (01/26/2020 10:10 EDT) C4 Complement 16 13 - 39 mg/dL [facility] Comment: [facility] CENTER LAB Test [place] [address] Specimen Performing Organization Address City/[facility] Phon e Number [facility] [address] [place] [address] (ABNORMAL) C3 COMPLEMENT (01/26/2020 10:10 EDT) C3 Complement 78 (A) 81 - 157 mg/dL [facility] Comment: MED CENTER LAB Test [place] [address] Specimen Performing Organization Address City/[facility]/ZIP Code Phon e Number [facility] [address] [place] [address] THYROGLOBULIN AB (01/26/2020 10:10 EDT) THYROGLOBULIN 17 <=60 U/mL [facility] ANTIBODY - [facility] Comment: MED CENTER LAB Test performed [place] [address] Specimen Performing Organization Address City/State/ZIP Code Phon e Number [facility] [address] [place] [address] URINE CULTURE IF POSITIVE (01/26/2020 10:10 EDT) Pathologist Sig nature USUAL UROGENITAL UMM UUV [facility] ME D - [facility] CENTER LAB COLONY COUNT <10,000 CFU/ML [facility] Specimen Urine (substance) Performing Organization Address [facility] Code Phon e Number [facility] [address] [place] [address] URINALYSIS/COMPLETE - [facility] (01/26/2020 10:10 EDT) URINE APPEARANCE - Clear CLEAR [facility] URINE BACTERIA - FEW [facility] URINE BILIRUBIN - Negative NEGATIVE [facility] DIPSTICK [facility] URINE BLOOD - [facility] Negative NEG [facility] URINE COLOR - [facility] Yellow YELLOW [facility] URINE GLUCOSE - Negative NEGATIVE [facility] URINE KETONE - [facility] Negative NEGATIVE [facility] LAB URINE LEUK ESTERASE Trace NEG [facility] LAB URINE NITRITE - Negative NEG [facility] DIPSTICK [facility] URINE PH - [facility] 7.0 4.0 - 8.0 [facility] URINE PROTEIN - Negative NEG [facility] DIPSTICK [facility] URINE RBC - [facility] NEG rbc/hpf [facility] URCULTIF+? - [facility] Culture Ordered [facility] URINE SPECIFIC 1.010 1.001 - 1.035 [facility] GRAVITY [facility] LAB URINE SQUAMOUS CELLS FEW NEG #/hpf [facility] URINE UROBILINOGEN - 0.2 0.2 - 1.0 [facility] DIPSTICK [facility] LAB URINE WBC - [facility] RARE NEG wbc/hpf [facility] Specimen Performing Organization Address City/[facility]/ZIP Code Phon e Number [facility] [address] [place] [address] URIC ACID (01/26/2020 10:10 EDT) Pathologist Sig nature URIC ACID - [facility] 4.0 2.2 - 7.7 mg/dL [facility] Specimen Performing Organization Address City/State/ZIP Code Phon e Number [facility] [address] [place] [address] CK (01/26/2020 10:10 EDT) Pathologist Jordon mcnair CPK [facility] 61 30 - 135 U/L [facility] L AB Specimen Performing Organization Address [facility] Phon e Number [facility] [address] [place] [address] (ABNORMAL) PARVOVIRUS B19 AB, IGG, IGM, S (01/26/2020 10:09 EDT) INTERPRETATION - [facility] SEE BELOW () [facility] Comment: [facility] RESULT: Results suggest past infection. ADDITIONAL INFORMATION ------ This test has been modified from the rangelands conservation laborer's instructions. Its performance characteristics were determined by [facility] in a manner consistent with CLIA requirements. This test has not been cleared or approved by the U.S. Food and Drug Administration. Test Performed by: [facility] [place] [address] Machine Etcher: Jerry Reyez M.D. Ph.D.; CLIA# [id number] PARVO IGG - [facility] Positive (A) Negative [facility] PARVO IGM - [facility] Negative Negative [facility] Specimen Performing Organization Address [facility] e Number [facility] [address] [place] [address] documented in this encounter Visit Diagnoses Diagnosis Malaise and fatigue - Primary Other malaise and fatigue Shortness of breath Polyarthralgia Pain in joint, multiple sites Myalgia Mylagia and myositis, unspecified Positive COLTON (antinuclear antibody) Other and unspecified nonspecific immuno logical findings Low vitamin D level documented in this encounter Historical Medications This list may reflect changes made after this encounter. Medication Sig Dispensed Refills Start Date End Date ibuprofen (MOTRIN) 200 mg Take 200 mg by mouth 0 tablet every 6 hours as needed for Pain. added in this encounter Care Teams Corporate Lawyer Relationship Specialty Start Date End Date Unknown, Provider, PCP - General 04/07/16 documented as of this encounter
--- OUTSIDE RECORDS SUMMARY | 2022-05-15 02:31 | XMS_ITS | Encounter Summary ---
:1980 Author Organization [facility] Address [address] [place] [address] Care Team Providers Name Role Phone Unknown, Provider Primary Care Provider Reason for Visit Reason Comments Follow-up Patient did answer phone, bu t unable to talk and update chart at this time (dropping kids off at school ). Reminded patient of 0815 appointment time. Encounter Details Date Type Department Care Team Description 06/02/2021 Telemedicine [facility] - Ratna Stuart COLTON (antinuclear antibody) (Primary Dx); [facility] Rheumatology AUGUST Cantrell Vitamin D insufficiency; [address] [facility] [place] [address] [address] [place] [address] Social History Tobacco Use Types Packs/Day Years Used Date Never Smoker Smokeless Tobacco: Never Used Alcohol Use Standard Drinks/Week Comments Not Currently 0 (1 standard drink = 0.6 oz pure alcoho l) Education Answer Date Recorded What is the highest level of school Master's degree (e.g., M A, MS, 02/15/2020 you have completed or the highest Dick, MEd, COMBINATION BUILDING INSPECTOR, JARVIS) degree you have received? Sex Assigned [...] making decisions? documented as of this encounter Progress Notes Tamia Stuart, ZE - 06/02/2021 0815 EST [facility] Telephone Visit Today's visit was provided via telephone audio only. The location of the patient: Home The location of the provider: Office Verbal consent: The concept of ???Telemedicine?? has been described to the patient. Patient has been informed of the anticipated benefits and possible risks. Patient understands the [...] obtained by myself or auxiliary staff: yes. I have determined that an audio-only visit is appropriate due to: Internet access or other technical issue Scheduled as video visit, but patient unable to access the link Subjective: Chief Complaint(s): Follow-up (Patient did answer phone, but unable to talk and update chart at thistime (dropping kids off at school). Reminded patient of 0815 appointment time.) HPI: Initial evaluation on 01/26/20 for symptoms of??life limiting??fatigue, polyarthralgias and intermittent facial rash??beginning January,.?? Other symptoms of shortness of breath, tired muscles and some generalized joint pain including her neck and shoulders and sometimes knees and elbows. ?? Difficult for her to get out of bed most mornings. ??Does not feel well rested after a night sleep. ?? Normally very active person enjoying hiking and gardening. ??Has 4 children ages 15, 6, 3 and 18 months.? Reported??shortness of breath without wheezing. ??Feels more like her exercise tolerance has diminished. No described palpitations. Symptoms blossomed after her severe mastitis??2019??with resultant abscess. Thereafter, her symptomsof fatigue, intermittent facial rashes and joint pain began. Past history of intermittent Raynaud's since her teenage years. Grandmother with arthritis Has specific concerns about lupus as a diagnosis. ?? Labs at [facility] on 11/23/19 including CBC, ESR, CRP, CMP, TSH, IBRAHIMA, Lyme and RF all negative or within normal limits COLTON positive 1:80 homogenous pattern Vitamin B12 = 192 (193-986)?? Vitamin D = 24.2 ?? Labs performed on 01/26/20 at [facility]; Uric acid = 4.0 U/A negative for protein, blood or nitrites Parvovirus - IgM negative, IgG positive Thyroglobulin antibody negative C3 = 16,??C4 = 78 ??(81-157) CCP negative PTH = 49 CK = 61 INTERVAL HISTORY: Last visit on 12/11/2020 via televideo. Since that time, has been taking low-dose thyroid supplementation. Overall feeling much better and more like herself. Start appointment with Lyme specialist who ran a Western blot with positivity. Previous Lyme antibodies negative. Treated with antibiotics for nearly 3 months. Feels as though symptoms have improved. No joint swelling. Decreasing episodes of migraines. She has discontinued hydroxychloroquine for the last month. Denies any increase in symptoms with that discontinuation. I have reviewed patient's tobacco history: reports that she has never smoked. She has never used smokeless tobacco. I have reviewed current problem list and current medications. ROS: Review of Systems Constitutional: Negative for malaise/fatigue and weight loss. Eyes: Negative for pain. Musculoskeletal: Negative for joint pain and myalgias. Skin: Negative for itching and rash. Neurological: Positive for headaches. Objective: Examination: Home Vitals: There were no vitals taken for this visit. Pertinent exam findings: speaking in full sentences, no audible wheeze and mood and affect appropriate Data reviewed with patient: Reviewed and/or ordered active problem list, medication list, allergies,social history, notes from last encounter, lab results tests Assessment & Plan: 1. Positive COLTON (antinuclear antibody) Low positive with negative follow up blood work for lupus 2. Vitamin D insufficiency Continue with supplemental vitamin D and monitoring 3. Polyarthralgia Improvement in symptoms after treatment for suspected latent Lyme Has discontinued HCQ Watchful waiting for any signs of recurrent joint pain, swelling, etc Follow up as needed in the future. Patient understands that if it has been 3 years or longer, will need updated referral. Patient initiated phone contact with the office: yes. Patient is an established patient (parent, guardian) yes. E/M provided within previous 7 days for same medical assessment: no Anticipate E/M service within 24hrs or next available urgent appointment no. This visit was conducted by telephone. A total of 22 minutes was spent on this encounter on the day of this encounter. documented in this encounter Plan of Treatment Not on filedocumented as of this encounter Visit Diagnoses Diagnosis Positive COLTON (antinuclear antibody) - Pr imary Other and unspecified nonspecific immuno logical findings Vitamin D insufficiency Unspecified vitamin D deficiency Polyarthralgia Pain in joint, multiple sites documented in this encounter Discontinued Medications Medication Sig Discontinue Reason Start Date End Date hydrOXYchloroQUINE Take 1 Tab by Therapy completed 12/11/2020 (PLAQUENIL) 200 mg mouth daily. tabletIndications: Polyarthralgia documented as of this encounter Care Teams Doctor Of Veterinary Medicine Relationship Specialty Start Date End Date Unknown, Provider, PCP - General 04/07/16 documented as of this encounter
--- OUTSIDE RECORDS SUMMARY | 2022-05-15 02:31 | XMS_ITS | Encounter Summary ---
:1980 Author Organization [facility] Address [address] [place] [address] Care Team Providers Name Role Phone Unknown, Provider Primary Care Provider Encounter Details Date Type Department Care Team Description 12/05/2020 Lab Requisition [facility] Outr Resulting Lab, Pathology & Laboratory Provider [facility] acute hospital [address] [place] [address] Social History Tobacco Use Types Packs/Day Years Used Date Never Smoker Smokeless Tobacco: Never Used Alcohol Use Standard Drinks/Week Comments Not Currently 0 (1 standard drink = 0.6 oz pure alcoho l) Education Answer Date Recorded What is the highest level of school Master's degree (e.g., M A, MS, 02/15/2020 you have completed or the highest Dick, MEd, BULK MATERIALS HANDLING PLANT OPERATOR, JARVIS) degree you have received? Sex Assigned [...] Procedure Name Priority Date/Time Associated Comments Diagnosis HN LAB PATH REVIEW - Today 12/05/2020 11:10 Res ults for this COAG EDT procedure are i n the results section. LUPUS ANTICOAGULANT Routine 12/05/2020 11:10 Resu lts for this CASCADE EDT procedure are i n the results section. C3 COMPLEMENT Routine 12/05/2020 11:10 Results fo r this EDT procedure are i n the results section. C4 COMPLEMENT Routine 12/05/2020 11:10 Results fo r this EDT procedure are i n the results section. documented in this encounter Results HN LAB DIFF PATH REVIEW - COAG (12/05/2020 11:10 EDT) Pathology Review Lupus anticoagulant results reviewed by Tatum Ovalle MD [facility] LABORATORY Coagulation SERVICES Specimen Blood - Venous blood (substance) Performing Organization Address City/State/ZIP Code Phon e Number [facility] [address] [place] [address] SERVICES (ABNORMAL) LUPUS ANTICOAGULANT CASCADE (12/05/2020 11:10 EDT) Pathologist [facility] [place] Negative for detection of donita pus anticoagulant (LA). ??Where clinical suspicion for antiphospholipid syndrome is high, it may be appropriate ??to perform alternative LA or aPL assays. ?? [facility] LABORATORY The laboratory criteria for Antiphospholipid Syndrome (aPL) include positive testing for one of the following on 2 or more occasions, at least 12 weeks apart: SERVICES 1. Lupus anticoagulant (LA), 2. Cardiolipin antibodies (IgG or IgM) in medium or hi gh titer, 3. Beta2-glycoprotein 1 antibodies (IgG or IgM) in med ium or high titer. Solid-phase assays for Beta2 glycoprotein 1 (B2GP1) and Cardiolipin antibodies are recommended when evaluating a patient for antiphospholipid syndrome. ??Correlation with those results is advised. Comment: Lupus Anticoagulant not detected Dilute Viper 31.4 (L) 31.9 - 47.0 [facility] [place] LABORAT[facility] SERVICES Silica Clotting 38.6 30.2 - 48.4 [facility] Time [facility] LABORATORY SERVICES Specimen Blood - Venous blood (substance) Performing Organization Address City/[facility]/ZIP Code Phon e Number [facility] [address] [place] [address] SERVICES C3 COMPLEMENT (12/05/2020 11:10 EDT) Pathologist Sig nature C3 Complement 81 81 - 157 mg/dL [facility] SERVICES Specimen Blood - Venous blood (substance) Performing Organization Address City/State/ZIP Code Phon e Number [facility] [address] [place] [address] SERVICES C4 COMPLEMENT (12/05/2020 11:10 EDT) Pathologist Sig nature C4 Complement 19 13 - 39 mg/dL [facility]AT [place] SERVICES Specimen Blood - Venous blood (substance) Performing Organization Address City/State/ZIP Code Phon e Number [facility] [address] [place] [address] SERVICES documented in this encounter Visit Diagnoses Not on filedocumented in this encounter Care Teams Boiler Tube Blower Relationship Specialty Start Date End Date Unknown, Provider, PCP - General 04/07/16 documented as of this encounter
--- OUTSIDE RECORDS SUMMARY | 2022-05-15 02:31 | XMS_ITS | Encounter Summary ---
:1980 Author Organization [facility] Address [address] [place] [address] Care Team Providers Name Role Phone Unknown, Provider Primary Care Provider Reason for Visit Reason Onset Date Comments Medications Refill 12/11/2020 Encounter Details Date Type Department Care Team Description 12/11/2020 Refill [facility] Davida Zaragoza RN Medications Refill Rheumatology [address] [place] [address] Social History Tobacco Use Types Packs/Day Years Used Date Never Smoker Smokeless Tobacco: Never Used Alcohol Use Standard Drinks/Week Comments Not Currently 0 (1 standard drink = 0.6 oz pure alcoho l) Education Answer Date Recorded What is the highest level of school Master's degree (e.g., M A, MS, 02/15/2020 you have completed or the highest Dick, MEd, EDITOR CONTINUITY AND SCRIPT, JARVIS) degree you have received? Sex Assigned [...] Take 1 Tab by 90 Tab 3 12/11/2020 (PLAQUENIL) 200 mg mouth daily. tabletIndications: Polyarthralgia documented in this encounter Miscellaneous Notes Telephone Encounter - Davida Zaragoza RN - 12/11/2020 1601 EDT Patient left voicemail requesting refill of her HCQ be sent to [facility]. Patient seen today for Televideo visit and is due for follow up in 3 months. Refill sent as noted. documented in this encounter Plan of Treatment Not on filedocumented as of this encounter Visit Diagnoses Diagnosis Polyarthralgia - Primary Pain in joint, multiple sites documented in this encounter Discontinued Medications Medication Sig Discontinue Reason Start Date End Date hydrOXYchloroQUINE Take 1 Tab by Reorder 09/03/2020 12/12/19 21 (PLAQUENIL) 200 mg mouth daily. tabletIndications: Polyarthralgia documented as of this encounter Care Teams Glaciologist Relationship Specialty Start Date End Date Unknown, Provider, PCP - General 04/07/16 documented as of this encounter
--- OUTSIDE RECORDS SUMMARY | 2022-05-15 02:31 | XMS_ITS | Encounter Summary ---
:1980 Author Organization [facility] Address [address] [place] [address] Care Team Providers Name Role Phone Unknown, Provider Primary Care Provider Reason for Referral Consult (Routine) - Specialty Report Received Specialty Diagnoses / Procedures Referred By Contact Refer red To Contact Diagnoses Rash and other nonspecific skin eruption Tamia Stuart, Serg Rudd MD [address],[place] [address] [place] [phone] Fax: Referral ID Status Reason Start Expiration Visits Visits Date Date Requested Authorized [id number] Specialty Specialty 09/09/2020 1 1 Report Services Received Required Question Answer Reason for Request: Recurrent facial rash; pleas e evaluate and treat. Reason for Visit Reason Onset Date Comments Referral Request 09/09/2020 Encounter Details Date Type Department Care Team Description 09/09/2020 Telephone [facility] - [facility] Shanae Stuart, Referral Request Rheumatology [employer] [address] [place] [address] [address] [place] [address] (Wo rk) Social History Tobacco Use Types Packs/Day Years Used Date Never Smoker Smokeless Tobacco: Never Used Alcohol Use Standard Drinks/Week Comments Not Currently 0 (1 standard drink = 0.6 oz pure alcoho l) Education Answer Date Recorded What is the highest level of school Master's degree (e.g., M A, MS, 02/15/2020 you have completed or the highest Dick, MEd, STAGE PRODUCER, JARVIS) degree you have received? Sex Assigned [...] this encounter Miscellaneous Notes Telephone Encounter - Martha Kimble RN - 09/09/2020 0934 EST Talked with patient. She requests Derm consult be sent to [facility] in [place] as it is much closer to her house. Also requests a sooner appointment than January as rash is really bothering her. Referral placed as requested with 2 weeks scheduling time frame requested and [facility] referral closed. elephone Encounter - Laureano Carmona - 09/09/2020 0821 EST Pt called concerned that a dermatology referral Tamia Philippeter sent out for her was sent to the incorrect practitioner. The patient stated at her last appointment she and Tamia discussed the specific provider the Pt wanted to see since they are much closer to home. Please call her back. documented in this encounter Plan of Treatment Scheduled Referrals Name Type Priority Associated Diagnoses Order S chedule AMB CONS/FOLLOW UP Outpatient Referral Routine Rash and other Expected: DERMATOLOGY nonspecific skin 09/23/2020 eruption (Approximate) documented as of this encounter Visit Diagnoses Diagnosis Rash and other nonspecific skin eruption - Primary documented in this encounter Care Teams Recruitment Consultant Relationship Specialty Start Date End Date Unknown, Provider, PCP - General 04/07/16 documented as of this encounter
--- OUTSIDE RECORDS SUMMARY | 2022-05-15 02:31 | XMS_ITS | Encounter Summary ---
:1980 Author Organization [facility] Address [address] [place] [address] Care Team Providers Name Role Phone Unknown, Provider Primary Care Provider Encounter Details Date Type Department Care Team Description 09/27/2020 Lab Requisition [facility] Outr Resulting Lab, Pathology & Laboratory Provider [facility] [address] [place] [address] Social History Tobacco Use Types Packs/Day Years Used Date Never Smoker Smokeless Tobacco: Never Used Alcohol Use Standard Drinks/Week Comments Not Currently 0 (1 standard drink = 0.6 oz pure alcoho l) Education Answer Date Recorded What is the highest level of school Master's degree (e.g., M A, MS, 02/15/2020 you have completed or the highest Dick, MEd, KEYPUNCH OPERATORS SUPERVISOR, JARVIS) degree you have received? Sex [...] Associated Diagnosis Comme nts HOLD SST Today 09/27/2020 8:14 EST Results for this procedure are i n the results section. HOLD SST Today 09/27/2020 8:14 EST Results for this procedure are i n the results section. HOLD SST Today 09/27/2020 8:14 EST Results for this procedure are i n the results section. HOLD SST Today 09/27/2020 8:14 EST Results for this procedure are i n the results section. PROGESTERONE Today 09/27/2020 8:14 EST Results for this procedure are i n the results section. ESTRADIOL, ADULTS Today 09/27/2020 8:14 EST Res ults for this procedure are i n the results section. T3, TOTAL Today 09/27/2020 8:14 EST Results for this procedure are i n the results section. FSH Today 09/27/2020 8:14 EST Results for this procedure are i n the results section. CORTISOL Today 09/27/2020 8:14 EST Results for this procedure are i n the results section. documented in this encounter Results HOLD SST (09/27/2020 8:14 EST) Pathologist Sig nature Hold Hold [facility] LAB[facility]ATOR Y SERVICES Specimen Blood - Venous blood (substance) Performing Organization Address City/[facility]/ZIP Code Phon e Number [facility] [address] [place] [address] SERVICES HOLD SST (09/27/2020 8:14 EST) Pathologist Sig nature Hold Hold [facility] SERVICES Specimen Blood - Venous blood (substance) Performing Organization Address City/State/ZIP Code Phon e Number [facility] [address] [place] [address] SERVICES HOLD SST (09/27/2020 8:14 EST) Pathologist Sig nature Hold Hold [facility] SERVICES Specimen Blood - Venous blood (substance) Performing Organization Address City/State/ZIP Code Phon e Number [facility] [address] [place] [address] SERVICES HOLD SST (09/27/2020 8:14 EST) Pathologist Sig nature Hold Hold [facility] SERVICES Specimen Blood - Venous blood (substance) Performing Organization Address City/State/ZIP Code Phon e Number [facility] [address] [place] [address] SERVICES T3, TOTAL (09/27/2020 8:14 EST) Pathologist Sig nature T3, Total 115 97 - 169 ng/dL [facility]AT ORY SERVICES Specimen Blood - Venous blood (substance) Performing Organization Address City/State/ZIP Code Phon e Number [facility] [address] [place] [address] SERVICES FSH (09/27/2020 8:14 EST) Pathologist Sig nature FSH 8.6 See Note mIU/mL [facility] SERVICES Specimen Blood - Venous blood (substance) Narrative [facility] SERVICES - 09/27/2020 18:13 EST NOTE: Female FSH Reference Ranges (>= 13 [...] Organization Address City/State/ZIP Code Phon e Number [facility] [address] [place] [address] SERVICES PROGESTERONE (09/27/2020 8:14 EST) Progesterone 0.[address] [facility] Comment: ng/mL LABORATORY Female Reference Ranges: SERVICES [...] - Venous blood (substance) Performing Organization Address [facility] Phon e Number [facility] [address] [place] [address] SERVICES ESTRADIOL, ADULTS (09/27/2020 8:14 EST) Estradiol 19 See Note pg/mL [facility] Comment: LABORATORY SERVICES NOTE: FEMALE REFERENCE RANGES: MENSTRUATING ? By cycle day relative to LH peak Follicular ?(-12 to -4 days) ??20-144 pg/mL Midcycle ?(-3 to +2 days) ?? 64-357 pg/mL Luteal ?(+4 t0 +12 days) ??56-214 pg/mL POSTMENOPAUSAL ?<32 pg/mL *Cross reactivity with Fulve strant could lead to a falsely elevated estradiol result in patients treated with this drug. Specimen Blood - Venous blood (substance) Performing Organization Address [facility] Phon e Number [facility] [address] [place] [address] SERVICES CORTISOL (09/27/2020 8:14 EST) Cortisol 12 See Note ug/dL [facility] Comment: LABORATORY SERVICES NOTE: Reference Ranges (from OCD IFU): Collected Before 10:00 AM: ??4 - 23 ug/dL Collected After 5:00 PM: ?2 - 14 ug/dL The results of this assay ca n be falsely elevated due to the consumption of Biotin. Specimen Blood - Venous blood (substance) Performing Organization Address City/State/ZIP Code Phon e Number [facility] [address] [place] [phone] SERVICES documented in this encounter Visit Diagnoses Not on filedocumented in this encounter Care Teams Pmo Consultant Relationship Specialty Start Date End Date Unknown, Provider, PCP - General 04/07/16 documented as of this encounter
--- OUTSIDE RECORDS SUMMARY | 2022-05-15 02:31 | XMS_ITS | Encounter Summary ---
:1980 Author Organization [facility] Address [address] [place] [address] Care Team Providers Name Role Phone Unknown, Provider Primary Care Provider Reason for Visit Reason Onset Date Comments Update 03/28/2020 Encounter Details Date Type Department Care Team Description 03/28/2020 Telephone [facility] - [facility] Tamia Feliciano NP Update Rheumatology [address] [facility] 130 [facility] [address] [place] [address] [place] [address] (Wo rk) Social History Tobacco Use Types Packs/Day Years Used Date Never Smoker Smokeless Tobacco: Never Used Alcohol Use Standard Drinks/Week Comments Not Currently 0 (1 standard drink = 0.6 oz pure alcoho l) Education Answer Date Recorded What is the highest level of school Master's degree (e.g., M A, MS, 02/15/2020 you have completed or the highest Dick, MEd, ALLOPATHIC DOCTOR, JARVIS) degree you have received? Sex Assigned at Date Recorded Not on file documented as of this encounter Miscellaneous Notes Telephone Encounter - Bharti Patrick RN - 03/29/2020 0930 EDT Called pt and LMTCB with update if desired. elephone Encounter - CarlosEmmanuelle - 03/28/2020 1606 EDT Patient called and LVM looking to speak with a nurse regarding giving an update on how she has been feeling on the new prednisone prescription she was given by Isi. Please advise. documented in this encounter Plan of Treatment Not on filedocumented as of this encounter Visit Diagnoses Not on filedocumented in this encounter Care Teams Brain Picker Relationship Specialty Start Date End Date Unknown, Provider, PCP - General 04/07/16 documented as of this encounter
--- OUTSIDE RECORDS SUMMARY | 2022-05-15 02:31 | XMS_ITS | Encounter Summary ---
:1980 Author Organization [facility] Address [address] [place] [address] Care Team Providers Name Role Phone Unknown, Provider Primary Care Provider Reason for Visit Reason Onset Date Comments Update 04/03/2020 Encounter Details Date Type Department Care Team Description 04/03/2020 Telephone [facility] Tamia Feliciano, AUGUST Update Rheumatology [address] [facility] [address] [facility] [address] [place] [address] [place] [address] (Wo rk) Social History Tobacco Use Types Packs/Day Years Used Date Never Smoker Smokeless Tobacco: Never Used Alcohol Use Standard Drinks/Week Comments Not Currently 0 (1 standard drink = 0.6 oz pure alcoho l) Education Answer Date Recorded What is the highest level of school Master's degree (e.g., M A, MS, 02/15/2020 you have completed or the highest Dick, MEd, BOAT LOADER, JARVIS) degree you have received? Sex Assigned at Date Recorded Not on file documented as of this encounter Miscellaneous Notes Telephone Encounter - Bharti Patrick RN - 04/15/2020 0830 EDT Lab orders faxed to [facility]. ddendum Note - Tamia Booker APRN - 04/12/2020 5949 EDT Addended by: TAMIA BOOKER on: 04/12/2020 17:19 Modules accepted: Orders Telephone Encounter - Tamia Booker APRN - 04/12/2020 1712 EDT Spoke with patient and recommend repeat labs after discussing her case with Dr. Harris. Repeat CBC, B12, and will add in a ds DNA. Patient also had facial rash recur. Prior to onset, she does think she had increased intake of peanut butter toast. Would also like to see if testing for allergy to peanut butter and/or gluten. Will add in a Celiac panel. Orders to be sent to [facility] elephone Encounter - Claudia Covington - 04/03/2020 1512 EDT Update on how prednisone is working- has helped some, she is less achey in the morning, but still very tired by mid-day. Doesn't feel like it is resolved documented in this encounter Plan of Treatment Scheduled Orders Name Type Priority Associated Diagnoses Order S chedule CELIAC DISEASE PANEL Lab Routine Malaise and fatigue Ordered: 04/12/2020 Positive COLTON (antinuclear antibody) documented as of this encounter Visit Diagnoses Diagnosis Malaise and fatigue - Primary Other malaise and fatigue Positive COLTON (antinuclear antibody) Other and unspecified nonspecific immuno logical findings documented in this encounter Care Teams Roving Machine Operator Relationship Specialty Start Date End Date Unknown, Provider, PCP - General 04/07/16 documented as of this encounter
--- OUTSIDE RECORDS SUMMARY | 2022-05-15 02:31 | XMS_ITS | Encounter Summary ---
:1980 Author Organization [facility] Address [address] [place] [address] Care Team Providers Name Role Phone Unknown, Provider Primary Care Provider Reason for Referral Laboratory Services (Routine/Next Available) - New Request Specialty Diagnoses / Procedures Referred By Contact Refer red To Contact Diagnoses Vitamin D insufficiency Tamia Stuart, AUGUST Procedures VITAMIN D (25,[place]) [address] [facility], [address] [place] [address] Referral ID Status Reason Start Date Expiration Date Visits V isits Requested Authorized [id number] New Request 05/23/2021 1 1 Encounter Details Date Type Department Care Team Description 05/23/2021 Orders Only [facility] - Martha Kimble Vit hall D insufficiency [facility] Rheumatology RN (Primary Dx) [address] [place] [address] Social History Tobacco Use Types Packs/Day Years Used Date Never Smoker Smokeless Tobacco: Never Used Alcohol Use Standard Drinks/Week Comments Not Currently 0 (1 standard drink = 0.6 oz pure alcoho l) Education Answer Date Recorded What is the highest level of school Master's degree (e.g., M A, MS, 02/15/2020 you have completed or the highest Dick, MEd, MATHEMATICAL ENGINEERING TECHNICIAN, JARVIS) degree you have received? Sex [...] as of this encounter Plan of Treatment Scheduled Orders Name Type Priority Associated Diagnoses Order S chedule VITAMIN D (25,[place]) Lab Routine Vitamin D insufficiency Expected: 05/23/2021 (Approximate), Expires: 05/23/2022 documented as of this encounter Visit Diagnoses Diagnosis Vitamin D insufficiency - Primary Unspecified vitamin D deficiency documented in this encounter Care Teams Fire Chief Relationship Specialty Start Date End Date Unknown, Provider, PCP - General 04/07/16 documented as of this encounter
--- OUTSIDE RECORDS SUMMARY | 2022-05-15 02:31 | XMS_ITS | Encounter Summary ---
:1980 Author Organization [facility] Address [address] [place] [address] Care Team Providers Name Role Phone Unknown, Provider Primary Care Provider Reason for Visit Reason Comments Follow-up Fatigue, malaise and joint p ain Encounter Details Date Type Department Care Team Description 06/24/2020 Telemedicine [facility] - Rachael Stuart hralgia (Primary Dx); [facility] [place]umatology AUGUST Cantrell Malaise and fatigue [address] [place] [address] [facility], [address] [place] [address] Social History Tobacco Use Types Packs/Day Years Used Date Never Smoker Smokeless Tobacco: Never Used Alcohol Use Standard Drinks/Week Comments Not Currently 0 (1 standard drink = 0.6 oz pure alcoho l) Education Answer Date Recorded What is the highest level of school Master's degree (e.g., M Aubrie, MS, 02/15/2020 you have completed or the highest Dick, MEd, ELECTRONIC MASKING SYSTEM OPERATOR, JARVIS) degree you have received? Sex Assigned at Date Recorded Not on file documented as of this encounter Ordered Prescriptions Prescription Sig Dispensed Refills Start Date End Date hydrOXYchloroQUINE Take 1 Tab by 30 Tab 1 06/24/2020 (PLAQUENIL) 200 mg mouth daily. tabletIndications: Polyarthralgia predniSONE (DELTASONE) 5 mg Take 3 Tabs by 42 Tab 1 01/202007/15/2020 tabletIndications: mouth daily for Polyarthralgia 7 days, THEN 2 Tabs daily for 7 days, THEN 1 Tab daily for 7 days. documented in this encounter Progress Notes Tamia Stuart, PRODUCT DEVELOPMENT SCIENTIST - 06/24/2020 9160 EST [facility] Video Visit Today's visit was provided through [...] auxiliary staff: yes. Subjective: Chief Complaint(s): Follow-up (Fatigue, malaise and joint pain) HPI: 39-year-old woman initially evaluated on 01/26/20 for symptoms of life limiting??fatigue??beginning January,.?? History of 3-4 episodes of intermittent rash of the face and upper arms. ??Denies any history eitherpersonally or family of psoriasis. ?? Other symptoms include shortness of breath, tired muscles and some generalized joint pain including her neck and shoulders and sometimes knees and elbows. ?? Difficult for her to get out of bed most mornings. ??Does not feel well rested after a night sleep. ?? Normally very active person enjoying hiking and gardening. ??Has 4 children ages 15, 6, 3 and 18 months.? 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 Likens the fatigue and exhaustion to similar feelings during 1st trimester of but is not . ?? The neck, shoulder and muscle stiffness lessens after a couple of hours but the fatigue persists. If she pushes herself, will have worsening fatigue for 2-3 days thereafter. ?? The shortness of breath is without wheezing. ??Feels more like her exercise tolerance has diminished. No described palpitations. Symptoms blossomed after her severe mastitis 2018 with resultant abscess. Thereafter, her symptoms of fatigue, intermittent facial rashes and joint pain began. History of migraines with one last night extending into this morning. ??Previously prescribed a medication for migraines which caused significant side effects and discontinued use after 1st administration. ?? Past history of intermittent Raynaud's since her teenage years. Grandmother with arthritis Has specific concerns about lupus as a diagnosis. ?? Labs at [facility] on 11/23/19 including CBC, ESR, CRP, CMP, TSH, IBRAHIMA, Lyme and RF all negative or within normal limits COLTON positive 1:80 homogenous pattern Vitamin B12 = 192 (193-986)?? Vitamin D = 24.2 Labs performed on 01/26/20 at [facility]; Uric acid = 4.0 U/A negative for protein, blood or nitrites Parvovirus - IgM negative, IgG positive Thyroglobulin antibody negative C3 = 16, C4 = 78 (81-157) CCP negative PTH = 49 CK = 61 ?? EKG - within normal limits INTERVAL HISTORY: Taking oral prednisone with improvement in symptoms at 20mg daily. Sleeping ok (sleeps 7-8 hours a night) but continues to have chronic fatigue. Stiff and tired in the morning. After she is up and about, feels a bit better and then by evening isexhausted. Almost feels a bit feverish at time. Parts symptomatic include knees, shoulders, back and neck primarily On a good sleep schedule. Taking vitamins to boost general well being. Eats well balanced meals. No use of caffeine. Her tug boat engineer ordered some bloodwork to include some hormone levels. Blood work drawn 05/23/20 prior to initiation of oral prednisone. Cortisol levels low across the board. FT3 = 1.9 (2.4-4.2) Used oral prednisone at low dose for short time in December, and then re- initiated in late Mayfor worsening of fatigue and joint pains. Other symptoms include decrease in tolerance of any alcohol. History of 1-2 alcoholic beverages in amonth. Last , was able to have 1-2 glasses of wine when out for Holiday event. Recently, had 1 beer and suffered sickness immediately thereafter into the following day. I have reviewed patient's tobacco history: reports that she has never smoked. She has never used smokeless tobacco. I have reviewed current problem list and current medications. ROS: Review of Systems Constitutional: Positive for malaise/fatigue. Negative for fever. HENT: Negative for congestion. Respiratory: Negative for cough. Cardiovascular: Negative for chest pain. Gastrointestinal: Negative for nausea and vomiting. Musculoskeletal: Positive for myalgias and neck pain. Skin: Positive for rash. Objective: Examination: Home Vitals: There were no vitals taken for this visit. Pertinent exam findings: appears well, neck supple, non-labored breathing, no rash on visible skin and mood and affect appropriate Data reviewed with patient: most recent labs reviewed Assessment & Plan: 1. Polyarthralgia Recommend taper of prednisone and initiation of HCQ for intermittent rash, fatigue and multijoint pain Obtain copy of recent labs. Follow up in a month for re-evaluation of symptoms as prednisone is tapered and HCQ initiated. - predniSONE (DELTASONE) 5 mg tablet; Take 3 Tabs by mouth daily for 7 days, THEN 2 Tabs daily for 7days, THEN 1 Tab daily for 7 days. Dispense: 42 Tab; Refill: 1 - hydrOXYchloroQUINE (PLAQUENIL) 200 mg tablet; Take 1 Tab by mouth daily. Dispense: 30 Tab; Refill:1 2. Malaise and fatigue May benefit from endocrine consultation due to reported low cortisol levels at all hours prior to any use of oral prednisone. A total of 25 minutes was spent on this encounter on [...] malaise and fatigue documented in this encounter Discontinued Medications Medication Sig Discontinue Reason Start Date End Date predniSONE (DELTASONE) 1 mg Take 2.5 Tabs by Alternate therapy 11/201906/24/2020 tabletIndications: mouth daily. Polyarthralgia predniSONE (DELTASONE) 5 mg Take 1 Tab by Alternate therapy 020 06/25/2020 tabletIndications: mouth daily. Polyarthralgia documented as of this encounter Care Teams Special Technical Operations Officer Relationship Specialty Start Date End Date Unknown, Provider, PCP - General 04/07/16 documented as of this encounter
--- OUTSIDE RECORDS SUMMARY | 2022-05-15 02:31 | XMS_ITS | Encounter Summary ---
:1980 Author Organization [facility] Address [address] [place] [address] Care Team Providers Name Role Phone Unknown, Provider Primary Care Provider Reason for Visit Reason Comments Follow-up UCTD Encounter Details Date Type Department Care Team Description 12/11/2020 Telemedicine [facility] - Ratna Stuart COLTON (antinuclear antibody) (Primary Dx); [facility] Rheumatology AUGUST Cantrell Undifferentiated connective tissue disea se ([facility]); [address] [facility] Low vitamin D level; [place] [address] [address], [address] Hypothyroidism, unspecified type [phone] [place] [address] Social History Tobacco Use Types Packs/Day Years Used Date Never Smoker Smokeless Tobacco: Never Used Alcohol Use Standard Drinks/Week Comments Not Currently 0 (1 standard drink = 0.6 oz pure alcoho l) Education Answer Date Recorded What is the highest level of school Master's degree (e.g., M Aubrie, MS, 02/15/2020 you have completed or the highest Dick, MEd, ESTHETICIAN/OWNER, JARVIS) degree you have received? Sex Assigned [...] as of this encounter Progress Notes Tamia Stuart APRN - 12/11/2020 5715 EDT [facility] Video Visit Today's visit was provided through [...] auxiliary staff: yes. Subjective: Chief Complaint(s): Follow-up (UCTD) HPI: Known patient initially evaluated on 01/26/20 [...] lupus as a diagnosis. ?? Labs at [facility] on 11/23/19 including CBC, ESR, CRP, CMP, TSH, IBRAHIMA, Lyme and RF all negative or within normal limits COLTON positive 1:80 homogenous pattern Vitamin B12 = 192 (193-986)?? Vitamin D = 24.2 ?? Labs performed on 01/26/20 at [facility]; Uric acid = 4.0 U/A negative for protein, blood or nitrites Parvovirus - IgM negative, IgG positive Thyroglobulin antibody negative C3 = 16, C4 = 78 ??(81-157) CCP negative PTH = 49 CK = 61 INTERVAL HISTORY: Dermatology appointment in January for evaluation of facial rash. Endocrinology visit at [facility]. Hormones looked ok; T3 and T4 were low Levothyroxine 25mcg prescribed. Has just started that medication. Vitamin D continues to be chronically low. Takes 5000IUs daily Has just been prescribed 50,000 IU prescription once a week Still really tired all the time With use of hydroxychloroquine, feels as though she has less very bad days Hard to get through the week Ran out of HCQ and noticed change in symptoms Planned to recheck labs in 6-8 weeks Her PCP is based out of [facility] internal medicine. I have reviewed patient's tobacco history: reports that she has never smoked. She has never used smokeless tobacco. I have reviewed current problem list and current medications. ROS: Review of Systems Constitutional: Positive for malaise/fatigue. Negative for fever and weight loss. Eyes: Negative for pain. Respiratory: Negative for cough and shortness of breath. Cardiovascular: Positive for palpitations. Gastrointestinal: Negative for nausea and vomiting. Musculoskeletal: Positive for neck pain. Negative for joint pain. Skin: Positive for rash. Neurological: Positive for tingling. Objective: Examination: Home Vitals: There were no vitals taken for this visit. Pertinent exam findings: appears well, neck supple, non-labored breathing, no wheeze, no rash on visible skin and mood and affect appropriate Data reviewed with patient: most recent labs reviewed: complement levels Assessment & Plan: 1. Positive COLTON (antinuclear antibody) Follow-up labs negative for lupus or RA. 2. Undifferentiated connective tissue disease (HCC-CMS) Positive response to hydroxychloroquine thus far. Continues to have fatigue, joint symptoms and some facial rash. 3. Low vitamin D level Encouraged her to continue with plan of vitamin D supplementation of 50,000 IUs once weekly for 6 weeks and then follow-up blood work to recheck those levels. 4. Hypothyroidism, unspecified type Endocrinology has initiated low-dose levothyroxine and encouraged her to continue with that if tolerating well. Follow-up in 3 months with remote visit versus in person evaluation. A total of 24 minutes was spent [...] Other and unspecified nonspecific immuno logical findings Undifferentiated connective tissue disea se ([facility]) (HCC) Unspecified diffuse connective tissue di sease Low vitamin D level Hypothyroidism, unspecified type documented in this encounter Historical Medications This list may reflect changes made after this encounter. Medication Sig Dispensed Refills Start Date End Date levothyroxine (SYNTHROID) 25 Take 25 mcg by 0 mcg tabletIndications: mouth daily. hypothyroidism ergocalciferol (DRISDOL; Take 50,000 Units 0 VITAMIN D2) 1,250 mcg by mouth every 7 (50,000 unit) days. capsuleIndications: vitamin D deficiency added in this encounter Care Teams Sheep Rancher Relationship Specialty Start Date End Date Unknown, Provider, PCP - General 04/07/16 documented as of this encounter
--- OUTSIDE RECORDS SUMMARY | 2022-05-15 02:31 | XMS_ITS | Encounter Summary ---
:1980 Author Organization [facility] Address [address] [place] [address] Care Team Providers Name Role Phone Unknown, Provider Primary Care Provider Encounter Details Date Type Department Care Team Description 07/03/2021 Lab Requisition [facility] Outr Resulting Lab, Pathology & Laboratory Provider [facility] [address] [place] [address] Social History Tobacco Use Types Packs/Day Years Used Date Never Smoker Smokeless Tobacco: Never Used Alcohol Use Standard Drinks/Week Comments Not Currently 0 (1 standard drink = 0.6 oz pure alcoho l) Education Answer Date Recorded What is the highest level of school Master's degree (e.g., M A, MS, 02/15/2020 you have completed or the highest Dick, MEd, RESEARCH AND DEVELOPMENT SPECIALIST, JARVIS) degree you have received? Sex Assigned [...] Priority Date/Time Associated Diagnosis Comme nts HOLD GREEN TOP Today 07/03/2021 8:05 EST Result s for this procedure are i n the results section. CALCIUM, IONIZED Today 07/03/2021 8:05 EST Resu lts for this procedure are i n the results section. documented in this encounter Results HOLD GREEN TOP (07/03/2021 8:05 EST) Pathologist Sig nature Hold Hold [facility] Specimen Blood - Venous blood (substance) Performing Organization Address City/State/ZIP Code Phon e Number [facility] [address] [place] [address] SERVICES CALCIUM, IONIZED (07/03/2021 8:05 EST) Calcium, Ionized 1.12Comment: 1.12 - 1.32 [facility] Testing performed mmol/L LABORATORY on heparinized SERVICES plasma. Results may be biased 5% lower than that of whole blood. Specimen Blood - Venous blood (substance) Performing Organization Address City/State/ZIP Code Phon e Number [facility] [address] [place] [address] SERVICES documented in this encounter Visit Diagnoses Not on filedocumented in this encounter Care Teams White Sugar Supervisor Relationship Specialty Start Date End Date Unknown, Provider, PCP - General 04/07/16 documented as of this encounter
--- OUTSIDE RECORDS SUMMARY | 2022-05-15 02:31 | XMS_ITS | Encounter Summary ---
:1980 Author Organization [facility] Address [address] [place] [address] Care Team Providers Name Role Phone Unknown, Provider Primary Care Provider Encounter Details Date Type Department Care Team Description 11/23/2019 Lab Requisition [facility] Outr Resulting Lab, Pathology & Laboratory Provider [facility] [address] [place] [address] Social History Tobacco Use Types Packs/Day Years Used Date Never Assessed Sex Assigned at Date Recorded Not on file documented as of this encounter Plan of Treatment Not on filedocumented as of this encounter Procedures Procedure Name Priority Date/Time Associated Comments Diagnosis HOLD SST Today 11/23/2019 12:08 Results for this EDT procedure are i n the results section. HOLD SST Today 11/23/2019 12:08 Results for this EDT procedure are i n the results section. LYME AB Today 11/23/2019 12:08 Results for this EDT procedure are i n the results section. RHEUMATOID FACTOR Today 11/23/2019 12:08 Result s for this EDT procedure are i n the results section. ANTI NUCLEAR AB Today 11/23/2019 12:08 Results for this (COLTON), IFA EDT procedure are i n the results section. documented in this encounter Results HOLD SST (11/23/2019 12:08 EDT) Pathologist Sig nature Hold Hold [facility] Specimen Blood - Venous blood (substance) Performing Organization Address City/State/ZIP Code Phon e Number [facility] [address] [place] [address] SERVICES HOLD SST (11/23/2019 12:08 EDT) Pathologist Sig nature Hold Hold [facility] Specimen Blood - Venous blood (substance) Performing Organization Address City/[facility]/ZIP Code Phon e Number [facility] [address] [place] [address] SERVICES LYME AB (11/23/2019 12:08 EDT) Pathologist Sig nature Lyme Ab Negative Negative [facility] Specimen Blood - Venous blood (substance) Performing Organization Address [facility]/ZIP Code Phon e Number [facility] [address] [place] [address] SERVICES RHEUMATOID FACTOR (11/23/2019 12:08 EDT) Pathologist Sig nature Rheumatoid Factor <8.6 <12.0 IU/mL [facility] SERVICES Specimen Blood - Venous blood (substance) Performing Organization Address [facility] Phon e Number [facility] [address] [place] [address] SERVICES (ABNORMAL) ANTI NUCLEAR AB (COLTON), IFA (11/23/2019 12:08 EDT) COLTON Interpretation Positive (A) Negative [facility] SERVICES COLTON Titer and Pattern 1:80 Homogeneous [facility] [address] LABORATORY SERVICES Specimen Blood - Venous blood (substance) Narrative [facility] SERVICES - 11/24/2019 15:21 EDT Results were obtained with the [employer] NOV A Lite HEp-2 COLTON Kit by indirect immunofluorescence. Performing Organization Address City/[facility] Phon e Number [facility] [address] [place] [address] SERVICES documented in this encounter Visit Diagnoses Not on filedocumented in this encounter Care Teams R D Internship Relationship Specialty Start Date End Date Unknown, Provider, PCP - General 04/07/16 documented as of this encounter
--- OUTSIDE RECORDS SUMMARY | 2022-05-15 02:31 | XMS_ITS | Encounter Summary ---
:1980 Author Organization [facility] Address [address] [place] [address] Care Team Providers Name Role Phone Unknown, Provider Primary Care Provider Encounter Details Date Type Department Care Team Description 04/06/2016 Results Only [facility] Vinh Hernandez CNM [phone] [place], [place] [id number] (Wo rk) Social History Tobacco Use Types Packs/Day Years Used Date Never Assessed Sex Assigned at Date Recorded Not on file documented as of this encounter Plan of Treatment Not on filedocumented as of this encounter Procedures Procedure Name Priority Date/Time Associated Diagnosis Comme nts PAP TEST- RESULT Routine 04/06/2016 0:00 EDT Resu lts for this ONLY procedure are i n the results section. documented in this encounter Results PAP TEST- RESULT ONLY (04/06/2016 0:00 EDT) Pathology Report: CYTOPATHOLOGY REPORT [facility] Reports generated via electronic interface contain fernanda ginal data; SERVICES however they are lacking the format of the original re port. Caution should be taken when reading/interpreting unfo rmatted reports. Name: ? CHECO WEST ? Accession #: ? [id number] : ? 1980 (Age: 35) ??F ?Collect Date: ? 04/06 Location: ? [facility] ? Receive Date : ? 04/07/2016 Provider: ?JACEYAubrie HERNANDEZ CNM Copy to: ? Specimen/Source: ? Pap Test, Cervix, ThinPrep Imaging System with manual evaluation Last Menstrual Period: ? 01/18/16 Menstrual/ Status: ? Hormonal/Contraceptive Status: ? None ? SPECIMEN ADEQUACY ? Unsatisfactory for Evaluation, - insufficient numbers of squamous epith elial cells (less than 10% of expected cellularity) - sample preparation compromised by excessive blood GENERAL CATEGORIZATION ? Specimen processed and examined, but unsatisfac tory for evaluation of epithelial abnormality. ??Recommend repe at Pap test in 2-4 months as stated in ASCCP's 2012 Updated Consensus Guidelines. EDUCATIONAL NOTES/RECOMMENDATIONS ? An additional slide was prepared and evaluated. ? Document reviewed and electronically signed by: ? JANINA Haywood(ASCP) ? Report Date: ??04/09/2016 12:44 End of Report Specimen Performing Organization Address City/State/ZIP Code Phon e Number [facility] [address] [place] [address] SERVICES documented in this encounter Visit Diagnoses Not on filedocumented in this encounter Care Teams Ice Carver Relationship Specialty Start Date End Date Unknown, Provider, PCP - General 04/07/16 documented as of this encounter
--- OUTSIDE RECORDS SUMMARY | 2022-05-15 02:31 | XMS_ITS | Encounter Summary ---
:1980 Author Organization [facility] Address [address] [place] [address] Care Team Providers Name Role Phone Unknown, Provider Primary Care Provider Encounter Details Date Type Department Care Team Description 11/06/2021 Lab Requisition [facility] Outr Resulting Lab, Pathology & Laboratory Provider [facility] [address] [place] [address] Social History Tobacco Use Types Packs/Day Years Used Date Never Smoker Smokeless Tobacco: Never Used Alcohol Use Standard Drinks/Week Comments Not Currently 0 (1 standard drink = 0.6 oz pure alcoho l) Education Answer Date Recorded What is the highest level of school Master's degree (e.g., M A, MS, 02/15/2020 you have completed or the highest Dick, MEd, REAL ESTATE OPERATIONS MANAGER, JARVIS) degree you have received? Sex [...] Associated Diagnosis Comme nts T3 FREE Routine 11/05/2021 16:12 Results for this EDT procedure are i n the results section. THYROID ANTIBODIES Routine 11/05/2021 16:12 Resul ts for this EDT procedure are i n the results section. documented in this encounter Results T3 FREE (11/05/2021 16:12 EDT) Pathologist Sig nature T3, Free 3.6Comment: Turbid 2.8 - 5.3 pg/mL [facility] sample identified, LABORATORY SERVICES interpret with caution as turbidity may affect result. Specimen Blood - Venous blood (substance) Performing Organization Address City/[facility]/ZIP Code Phon e Number [facility] [address] [place] [address] SERVICES THYROID ANTIBODIES (11/05/2021 16:12 EDT) Pathologist Sig nature Anti-Thyroglobulin <15 <=60 U/mL [facility] LABORATORY SERVICES Thyroperoxidase Ab 32 <=60 U/mL [facility] LABORATORY SERVICES Specimen Blood - Venous blood (substance) Performing Organization Address City/[facility]/ZIP Code Phon e Number [facility] [address] [place] [address] SERVICES documented in this encounter Visit Diagnoses Not on filedocumented in this encounter Care Teams Real Estate Acquisition Analyst Relationship Specialty Start Date End Date Unknown, Provider, PCP - General 04/07/16 documented as of this encounter
--- OUTSIDE RECORDS SUMMARY | 2022-05-15 02:31 | XMS_ITS | Encounter Summary ---
:1980 Author Organization [facility] Address [address] [place] [address] Care Team Providers Name Role Phone Unknown, Provider Primary Care Provider Encounter Details Date Type Department Care Team Description 07/03/2021 Lab Requisition [facility] Outr Resulting Lab, Pathology & Laboratory Provider [facility] [address] [place] [address] Social History Tobacco Use Types Packs/Day Years Used Date Never Smoker Smokeless Tobacco: Never Used Alcohol Use Standard Drinks/Week Comments Not Currently 0 (1 standard drink = 0.6 oz pure alcoho l) Education Answer Date Recorded What is the highest level of school Master's degree (e.g., M A, MS, 02/15/2020 you have completed or the highest Dick, MEd, DERMATOLOGY NURSE, JARVIS) degree you have received? Sex Assigned [...] Associated Diagnosis Comme nts T3 FREE Routine 07/03/2021 8:05 EST Results for this procedure are i n the results section. THYROID ANTIBODIES Routine 07/03/2021 8:05 EST Re sults for this procedure are i n the results section. HOMOCYSTEINE Routine 07/03/2021 8:05 EST Results for this procedure are i n the results section. documented in this encounter Results T3 FREE (07/03/2021 8:05 EST) Pathologist Sig nature T3, Free 3.7 2.8 - 5.3 pg/mL [facility] LABORA TORY SERVICES Specimen Blood - Venous blood (substance) Performing Organization Address [facility] Phon e Number [facility] [address] [place] [address] SERVICES THYROID ANTIBODIES (07/03/2021 8:05 EST) Pathologist Sig nature Anti-Thyroglobulin <15 <=60 U/mL [facility] LABORATORY SERVICES Thyroperoxidase Ab 31 <=60 U/mL [facility] LABORATORY SERVICES Specimen Blood - Venous blood (substance) Performing Organization Address [facility] Phon e Number [facility] [address] [place] [address] SERVICES HOMOCYSTEINE (07/03/2021 8:05 EST) Pathologist Sig nature Homocysteine 9.2 5.0 - 13.9 umol/L [facility] LABORATORY SERVICES Specimen Blood - Venous blood (substance) Narrative [facility]ATORY SERVICES - 07/04/2021 9:17 EST Reference range may not apply to non-fas ting samples. ??It is not recommended that EDTA plasma and serum from the same alma ent be used interchangeably. ??Serum concentrations have been observed to be up to 10% higher than EDTA plasma. Reference range may not apply to serum results. Performing Organization Address [facility] Phon e Number [facility] [address] [place] [address] SERVICES documented in this encounter Visit Diagnoses Not on filedocumented in this encounter Care Teams Policewoman Relationship Specialty Start Date End Date Unknown, Provider, PCP - General 04/07/16 documented as of this encounter
--- OUTSIDE RECORDS SUMMARY | 2022-05-15 02:31 | XMS_ITS | Encounter Summary ---
:1980 Author Organization [facility] Address [address] [place] [address] Care Team Providers Name Role Phone Unknown, Provider Primary Care Provider Encounter Details Date Type Department Care Team Description 02/21/2020 Travel Social History Tobacco Use Types Packs/Day Years Used Date Never Smoker Smokeless Tobacco: Never Used Alcohol Use Standard Drinks/Week Comments Not Currently 0 (1 standard drink = 0.6 oz pure alcoho l) Education Answer Date Recorded What is the highest level of school Master's degree (e.g., M A, MS, 02/15/2020 you have completed or the highest Dick, MEd, VETERINARY EPIDEMIOLOGIST, JARVIS) degree you have received? Sex Assigned [...] on filedocumented in this encounter Care Teams Refund Specialist Relationship Specialty Start Date End Date Unknown, Provider, PCP - General 04/07/16 documented as of this encounter
--- OUTSIDE RECORDS SUMMARY | 2022-05-15 02:31 | XMS_ITS | Encounter Summary ---
:1980 Author Organization [facility] Address [address] [place] [address] Care Team Providers Name Role Phone Unknown, Provider Primary Care Provider Reason for Visit Reason Onset Date Comments Results 11/29/2020 Encounter Details Date Type Department Care Team Description 11/29/2020 Telephone [facility] Martha Kimble RN Results Rheumatology [address] [place], [place] [address] Social History Tobacco Use Types Packs/Day Years Used Date Never Smoker Smokeless Tobacco: Never Used Alcohol Use Standard Drinks/Week Comments Not Currently 0 (1 standard drink = 0.6 oz pure alcoho l) Education Answer Date Recorded What is the highest level of school Master's degree (e.g., M Aubrie, MS, 02/15/2020 you have completed or the highest Dick, Mayra, WASTEWATER TREATMENT OPERATOR, JARVIS) degree you have received? Sex [...] documented as of this encounter Miscellaneous Notes Addendum Note - Tamia Booker APRN - 11/29/2020 1550 EDT Addended by: TAMIA BOOKER on: 11/29/2020 15:50 Modules accepted: Orders Telephone Encounter - Tamia Booker APRN - 11/29/2020 1550 EDT I placed orders for lupus cascade and complement levels. Ok to send those orders to [facility]. elephone Encounter - Martha Kimble, SELENA - 11/29/2020 1514 EDT When Alexei was doing chart prep she noted that last note states that orders for lupus anticoagulant and other labs will be faxed to [facility]. Would you still tiffanie these labs done? documented in this encounter Plan of Treatment Not on filedocumented as of this encounter Visit Diagnoses Diagnosis Positive COLTON (antinuclear antibody) - Pr imary Other and unspecified nonspecific immuno logical findings documented in this encounter Care Teams Wild Animal Caretaker Relationship Specialty Start Date End Date Unknown, Provider, PCP - General 04/07/16 documented as of this encounter
--- OUTSIDE RECORDS SUMMARY | 2022-05-15 02:31 | XMS_ITS | Encounter Summary ---
:1980 Author Organization [facility] Address [address] [place] [address] Care Team Providers Name Role Phone Unknown, Provider Primary Care Provider Reason for Visit Reason Onset Date Comments Other 02/07/2020 Encounter Details Date Type Department Care Team Description 02/07/2020 Telephone [facility] Tamia Feliciano NP Other Rheumatology [address] [facility] [address] [facility] [address] [place] [address] [place] [address] (Wo rk) Social History Tobacco [...] / COVID-19? documented as of this encounter Miscellaneous Notes Telephone Encounter - Martha Kimble RN - 02/07/2020 1532 EDT EKG order printed and faxed to [facility] resp. Therapy. elephone Encounter - Claudia Covington - 02/07/2020 1442 EDT Need order for EKG faxed to [facility] Resp Therapy [phone] signed by Claudia Covington at 02/07/2020 14:42 EDTdocumented in this encounter Plan of Treatment Not on filedocumented as of this encounter Visit Diagnoses Not on filedocumented in this encounter Care Teams Crystal Growing Technician Relationship Specialty Start Date End Date Unknown, Provider, PCP - General 04/07/16 documented as of this encounter
[2022-05-15 15:19] LABS: Abs Immature Grans 0.01 10^3/uL (0.0-0.06); Absolute Basophil Count 0.07 10^3/uL (0.0-0.2); Absolute Eosinophil Count 0.22 10^3/uL (0.0-0.7); Absolute Lymphocyte Count 1.64 10^3/uL (1.2-3.4); Absolute Monocyte Count 0.32 10^3/uL (0.1-0.8); Absolute Neutrophil Count 2.46 10^3/uL (1.2-6.7); Basophils % 1.5; Eosinophils % 4.7; HCT 39.9 % (36.0-46.0); HGB 13.1 g/dL (11.2-15.7); Immature Grans % 0.2; Lymphocytes % 34.7; MCH 31.4 pg (27.0-33.0); MCHC 32.8 % (32.0-36.0); MCV 96 fL (80-95); MPV 9.4 fL (8.0-11.0); Monocytes % 6.8; Neutrophils % 52.1; Platelet Count 275 10^3/uL (130-400); RBC 4.17 10^6/uL (3.93-5.22); RDW 12.7 % (11.7-14.6); RDW-SD 44.2 fL; WBC 4.72 10^3/uL (4.4-10.8)
[2022-05-15 15:20] LABS: ESR < 1 mm/hr (0-20)
[2022-05-15 16:49] LABS: C-Reactive Protein 0.05 mg/dL (0.0-0.3)
[2022-05-18 10:55] LABS: Lyme Ab w Rflx to Lyme Confirm Negative (Negative)
== END 2022-05-15 02:20 | disposition home or self-care (01) ==
LOC: LBO 02:19
PROVIDERS: PCP Nurse Practitioner; Visit Provider Optometrist
DX: M32.10 Systemic lupus erythematosus, organ or system involvement unspecified (principal); H15.89 Other disorders of sclera
CPT/HCPCS: 36415; 85652; 85025; 86140; 86618

== ENCOUNTER 2022-08-07 01:28 | Outpatient (CLI) | payer OTHER, SELFPAY ==
[2022-08-07 16:32] LABS: Iron 46 ug/dL (50-170); Total Iron Binding Capacity 390 ug/dL (250-450); Transferrin Sat 12 % (15-50)
[2022-08-07 16:38] LABS: FREE T4 0.74 ng/dL (0.76-1.46); TSH 0.26 uIU/mL (0.36-3.74)
[2022-08-07 16:47] LABS: Vitamin D 25 Total 33.5 ng/mL (30-100)
[2022-08-07 17:18] LABS: Ferritin 13 ng/mL (8-252); Vitamin B12 719 pg/mL (193-986)
[2022-08-09 17:36] LABS: T3,Free 3.6 pg/mL (2.8-5.3)
== END 2022-08-07 01:29 | disposition home or self-care (01) ==
LOC: LBO 01:28
PROVIDERS: PCP Nurse Practitioner; Visit Provider Nurse Practitioner
DX: H54.62 Unqualified visual loss, left eye, normal vision right eye (principal); A69.20 Lyme disease, unspecified; A69.29 Other conditions associated with Lyme disease; R53.83 Other fatigue
CPT/HCPCS: 36415; 82306; 82533; 82607; 82728; 82746; 83540; 83550; 84439; 84443; 84481

== ENCOUNTER 2022-08-25 10:43 | Outpatient (REF) | payer OTHER, SELFPAY ==
--- NOTE | 2022-08-25 10:00 | PAPFT_PTH ---
PATIENT: Iona Callahan LOC: [facility] U#:[id number] AGE/SX: 41/F ROOM: RE08/25/[address]: Consuelo Coleman NP : 1980 BED: DIS: 08/25/2022 SPEC #: [id number] RECD: 08/25/22 12:56 STATUS: OFE REQ #: [id number] CINDI: 08/25/22 10:[address]: Consuelo Coleman NP DEPT: [facility] Cytology RECD BY: Tg Mcdonald ENTERED: 08/25/22 12:56 SP TYPE: PAPFT OTHR DR: Olinda Henderson APRN Tissues: 1 - CX/ENDOCX FOR PAP SMEARS Procedures: PAP THIN PREP/[facility] Screening HPV DNA PROBE Comments: [id number]
== END 2022-08-25 10:44 | disposition home or self-care (01) ==
LOC: LBN 10:43
PROVIDERS: PCP Nurse Practitioner; Visit Provider Nurse Practitioner Women's Health
DX: Z12.4 Encounter for screening for malignant neoplasm of cervix (principal); Z11.51 Encounter for screening for human papillomavirus (HPV)
CPT/HCPCS: 88142; 87624

== ENCOUNTER 2022-09-08 02:01 | Outpatient (CLI) | payer OTHER, SELFPAY ==
[2022-09-08 13:36] LABS: FREE T4 0.69 ng/dL (0.76-1.46); TSH 0.43 uIU/mL (0.36-3.74)
[2022-09-08 22:21] LABS: T3,Free 3.4 pg/mL (2.8-5.3)
== END 2022-09-08 02:02 | disposition home or self-care (01) ==
PROVIDERS: PCP Nurse Practitioner; Visit Provider Naturopath
DX: A69.20 Lyme disease, unspecified (principal); R53.83 Other fatigue; H54.62 Unqualified visual loss, left eye, normal vision right eye
CPT/HCPCS: 36415; 82533; 84439; 84443; 84481

== ENCOUNTER 2022-09-16 01:02 | Outpatient (CLI) | payer OTHER, SELFPAY ==
--- NOTE | 2022-09-16 08:30 | DI.MAMMO_ITS ---
Exam(s) MAMMO SCREENING EXAM: MAMMO SCREENING CLINICAL HISTORY: screening,Z12.39 TECHNIQUE: Bilateral full field digital CC and MLO mammographic images were obtained with 3D tomosyn thesis and utilizing computer aided detection (CAD). COMPARISON: None. FINDINGS: Masses/Architectural Distortion: None seen. Microcalcifications: No suspicious pleomorphic-type are seen. Skin Thickening/Nipple Retraction: None. IMPRESSION: 1. No significant interval change with no specific features of malignancy noted. 2. Unless there is more urgent need, screening mammography is recommended, as per [place] [employer] guidelines. BI-RADS Category 1 - Negative Breast Density - Category C - Heterogeneously dense Breast density category C or D implies that the patient has dense breast tissue. Dense breast tissue is very common and is not abnormal but dense breast tissue can make it harder to find cancer on a ma mmogram. Also, dense breast tissue may increase their breast cancer risk. This information about the result of the mammogram report was provided to the patient to raise their awareness. Use this report when you speak with the patient about their risks for breast cancer, which includes their family hist ory. At that time, you may recommend for more screening tests (Ultrasound or MRI) as they might be us eful based on their risk. A negative radiographic report should not delay biopsy if a dominant or clinically suspicious mass is present. Up to ten percent of cancers are not identified on mammography. A negative report may reinforce clinical impression. Adenosis and dense breasts may obscure an underlying neoplasm. False positive reports average 6 to 10%. Patient will receive a letter notifying them of these results.
== END 2022-09-16 01:22 ==
PROVIDERS: PCP Nurse Practitioner; Visit Provider Nurse Practitioner Women's Health
DX: Z12.31 Encounter for screening mammogram for malignant neoplasm of breast (principal)
CPT/HCPCS: 77063; 77067

== ENCOUNTER 2022-12-28 04:49 | Outpatient (CLI) | payer OTHER, SELFPAY ==
[2022-12-28 12:56] LABS: Abs Immature Grans 0.01 10^3/uL (0.0-0.06); Absolute Basophil Count 0.07 10^3/uL (0.0-0.2); Absolute Eosinophil Count 0.21 10^3/uL (0.0-0.7); Absolute Lymphocyte Count 1.38 10^3/uL (1.2-3.4); Absolute Monocyte Count 0.24 10^3/uL (0.1-0.8); Absolute Neutrophil Count 2.96 10^3/uL (1.2-6.7); Basophils % 1.4; Eosinophils % 4.3; HCT 38.6 % (36.0-46.0); HGB 12.8 g/dL (11.2-15.7); Immature Grans % 0.2; Lymphocytes % 28.3; MCH 32.4 pg (27.0-33.0); MCHC 33.2 % (32.0-36.0); MCV 98 fL (80-95); MPV 8.9 fL (8.0-11.0); Monocytes % 4.9; Neutrophils % 60.9; Platelet Count 301 10^3/uL (130-400); RBC 3.95 10^6/uL (3.93-5.22); RDW 12.9 % (11.7-14.6); RDW-SD 46.6 fL; WBC 4.87 10^3/uL (4.4-10.8)
[2022-12-28 13:53] LABS: ALT 84 U/L (14-59); AST 52 U/L (15-37); Albumin 3.9 g/dL (3.4-5.0); Alkaline Phosphatase 56 U/L (46-116); Anion Gap 5.4 mmol/L (3-11); BUN 13 mg/dL (7-18); Bilirubin, Total 0.4 mg/dL (0.2-1.0); CO2 27.6 mmol/L (21.0-32.0); CREATININE 0.8 mg/dL (0.55-1.02); Calcium 8.7 mg/dL (8.5-10.1); Chloride 104 mmol/L (98-107); Estimated GFR 94.87 (mL/min/1.73m2); FREE T4 0.67 ng/dL (0.76-1.46); Glucose 87 mg/dL (74-106); Potassium 3.9 mmol/L (3.5-5.1); Sodium 137 mmol/L (136-145); Total Protein 7.3 g/dL (6.4-8.2)
[2022-12-28 22:20] LABS: T3,Free 3.7 pg/mL (2.8-5.3)
[2022-12-28 23:26] LABS: Thyroglobulin Antibody <15 U/mL (<=60); Thyroperoxidase Antibody <28 U/mL (<=60)
== END 2022-12-28 04:50 | disposition home or self-care (01) ==
PROVIDERS: PCP Nurse Practitioner; Visit Provider Naturopath
DX: A69.20 Lyme disease, unspecified (principal); H54.62 Unqualified visual loss, left eye, normal vision right eye; R45.89 Other symptoms and signs involving emotional state; R53.83 Other fatigue; E03.9 Hypothyroidism, unspecified; G47.00 Insomnia, unspecified; A69.29 Other conditions associated with Lyme disease
CPT/HCPCS: 36415; 80053; 84439; 84443; 84481; 85025; 86376; 86800

== ENCOUNTER 2023-02-12 01:24 | Outpatient (CLI) | payer OTHER, SELFPAY ==
[2023-02-12 18:02] LABS: ALT 22 U/L (14-59); AST 21 U/L (15-37); Albumin 3.9 g/dL (3.4-5.0); Alkaline Phosphatase 47 U/L (46-116); Anion Gap 9.8 mmol/L (3-11); BUN 19 mg/dL (7-18); Bilirubin, Total 0.4 mg/dL (0.2-1.0); CO2 26.2 mmol/L (21.0-32.0); CREATININE 1.3 mg/dL (0.55-1.02); Calcium 8.8 mg/dL (8.5-10.1); Chloride 104 mmol/L (98-107); Estimated GFR 52.98 (mL/min/1.73m2); FREE T4 0.59 ng/dL (0.76-1.46); Glucose 86 mg/dL (74-106); Potassium 3.9 mmol/L (3.5-5.1); Sodium 140 mmol/L (136-145); TSH 2.21 uIU/mL (0.36-3.74)
== END 2023-02-12 01:25 | disposition home or self-care (01) ==
PROVIDERS: PCP Nurse Practitioner; Visit Provider Naturopath
DX: E03.9 Hypothyroidism, unspecified (principal); R53.83 Other fatigue; A69.29 Other conditions associated with Lyme disease; A69.20 Lyme disease, unspecified; H54.62 Unqualified visual loss, left eye, normal vision right eye
CPT/HCPCS: 36415; 80053; 84439; 84443

== ENCOUNTER 2023-08-11 03:12 | Outpatient (CLI) | payer OTHER, SELFPAY ==
[2023-08-11 15:32] LABS: Abs Immature Grans 0.02 10^3/uL (0.0-0.06); Absolute Basophil Count 0.06 10^3/uL (0.0-0.2); Absolute Eosinophil Count 0.16 10^3/uL (0.0-0.7); Absolute Lymphocyte Count 1.53 10^3/uL (1.2-3.4); Absolute Monocyte Count 0.31 10^3/uL (0.1-0.8); Absolute Neutrophil Count 3.89 10^3/uL (1.2-6.7); Eosinophils % 2.7; HCT 45.1 % (36.0-46.0); HGB 15.4 g/dL (11.2-15.7); Immature Grans % 0.3; Lymphocytes % 25.6; MCH 33.5 pg (27.0-33.0); MCHC 34.1 % (32.0-36.0); MCV 98 fL (80-95); Monocytes % 5.2; Neutrophils % 65.2; Platelet Count 303 10^3/uL (130-400); RDW 12.6 % (11.7-14.6); RDW-SD 45.2 fL; WBC 5.97 10^3/uL (4.4-10.8)
[2023-08-11 16:00] LABS: FREE T4 0.78 ng/dL (0.76-1.46); TSH 0.12 uIU/mL (0.36-3.74)
[2023-08-11 16:12] LABS: Iron 171 ug/dL (50-170); Total Iron Binding Capacity 415 ug/dL (250-450); Transferrin Sat 41 % (15-50)
[2023-08-11 16:26] LABS: Ferritin 31 ng/mL (8-252)
[2023-08-12 17:59] LABS: T3,Free 4.5 pg/mL (2.8-5.3)
== END 2023-08-11 03:13 | disposition home or self-care (01) ==
PROVIDERS: PCP Nurse Practitioner; Visit Provider Naturopath
DX: H54.62 Unqualified visual loss, left eye, normal vision right eye (principal); A69.29 Other conditions associated with Lyme disease; R53.83 Other fatigue; E03.9 Hypothyroidism, unspecified; R45.89 Other symptoms and signs involving emotional state; G47.00 Insomnia, unspecified
CPT/HCPCS: 36415; 82728; 83540; 83550; 84439; 84443; 84481; 85025

== ENCOUNTER 2023-11-22 08:58 | Outpatient (CLI) | payer OTHER, SELFPAY ==
[2023-11-22 09:00] LABS: Abs Immature Grans 0.01 10^3/uL (0.0-0.06); Absolute Basophil Count 0.05 10^3/uL (0.0-0.2); Absolute Eosinophil Count 0.24 10^3/uL (0.0-0.7); Absolute Lymphocyte Count 1.59 10^3/uL (1.2-3.4); Absolute Monocyte Count 0.33 10^3/uL (0.1-0.8); Basophils % 0.9 %; Eosinophils % 4.5 %; HCT 42.8 % (36.0-46.0); HGB 14.2 g/dL (11.2-15.7); Immature Grans % 0.2 %; Lymphocytes % 29.9 %; MCH 34.2 pg (27.0-33.0); MCHC 33.2 % (32.0-36.0); MCV 103 fL (80-95); MPV 8.9 fL (8.0-11.0); Monocytes % 6.2 %; Neutrophils % 58.3 %; Platelet Count 295 10^3/uL (130-400); RBC 4.15 10^6/uL (3.93-5.22); RDW 11.5 % (11.7-14.6); RDW-SD 43.7 fL; WBC 5.32 10^3/uL (4.4-10.8)
[2023-11-22 09:28] LABS: FREE T4 0.68 ng/dL (0.76-1.46); Ferritin 44 ng/mL (8-252); TSH 1.76 uIU/Ml (0.36-3.74)
[2023-11-22 09:51] LABS: Iron 159 ug/dL (50-170); Total Iron Binding Capacity 384 ug/dL (250-450); Transferrin Sat 41 % (15-50)
[2023-11-22 17:28] LABS: T3,Free 2.6 pg/mL (2.8-5.3)
== END 2023-11-22 08:59 | disposition home or self-care (01) ==
LOC: LBO 08:59
PROVIDERS: PCP Nurse Practitioner; Visit Provider Naturopath
DX: H54.62 Unqualified visual loss, left eye, normal vision right eye (principal); A69.20 Lyme disease, unspecified; R53.83 Other fatigue; A69.29 Other conditions associated with Lyme disease; E03.9 Hypothyroidism, unspecified
CPT/HCPCS: 36415; 82728; 83540; 83550; 84439; 84443; 84481; 85025